=== PATIENT | male | born 1975 | race African-American/Black ===

== ENCOUNTER 2017-02-24 06:14 | Inpatient (IN) ==
[2017-02-24] MEDS ORDERED: ONDANSETRON 4 MG/2 ML VIAL IV PRN ×2 (06:50→09:49)
[2017-02-24] MEDS ORDERED: ENOXAPARIN 100 MG/ML SYRINGE SUBCUT STA (06:50)
[2017-02-24] MEDS ORDERED: NITROGLYCERIN 2% OINT 1 INCH/GM PACK TOP STA (06:50)
[2017-02-24] MEDS ORDERED: ASPIRIN 325 MG TABLET PO STA (06:50)
[2017-02-24] MEDS ORDERED: METOPROLOL TARTRATE 5 MG/5 ML VIAL IV STA (06:50)
[2017-02-24] MEDS ORDERED: MORPHINE 2 MG/1 ML SYRINGE IV PRN (06:50)
[2017-02-24 07:02] LABS: Basophils % 0.2 % (0.0-0.8); Eosinophils % 0.5 % (0.00-10.9); Hematocrit 42.3 VOL% (42.0-52.0); Hemoglobin 14.5 GM/DL (14.0-18.0); Immature Granulocytes % 0.3 %; Immature Granulocytes Absolute 0.02 #; Lymphocytes % 15.6 % (21.2-54.2); Mean Corpuscular HGB Conc 34.3 GM/DL (32-36); Mean Corpuscular Hemoglobin 29 PG (27-34); Mean Corpuscular Volume 84.4 FL (87-102); Mean Platelet Volume 9.1 FL (9.6-12.0); Monocytes # 0.3 10*3/uL (0.11-0.8); Neutrophils # 5.2 10*3/uL (1.4-7.4); Neutrophils % 78.4 % (38.7-73.9); Platelet Count 248 T/CUMM (130-400); Red Blood Count 5.01 MC/CUMM (3.8-5.5); Red Cell Distribution Width 12.6 % (9.3-17.3); White Blood Count 6.6 T/CUMM (4-12)
[2017-02-24 07:04] LABS: Partial Thromboplastin Time 26.1 SECS (0-40)
[2017-02-24] MEDS ORDERED: NITROGLYCERIN 2% OINT 1 INCH/GM PACK TOP ONE (07:04)
[2017-02-24] MEDS ORDERED: ENOXAPARIN 100 MG/ML SYRINGE SUBCUT ONE (07:04)
--- NOTE | 2017-02-24 07:04 | Emergency Department Note ---
Edgar Muniz Gwan, am scribing for, and in the presence of, Rajiv Bauer MD 06:52 . Lizette Muniz James D, MD, personally performed the services described in this documentation, ascribed by Eloisa Hernández in my presence, and it is both accurate and complete . Arrival - Arrival Chief Complaint: Chest Pain Stated Complaint: chest pain, back pain and vomiting ED Nursing Triage Note: pt to triage c.o chest pain sice 0230 this am . pt c.o dull / pressure like chest pain that radiates to his shoulder blades. pt also states he has had n/v Mode of Arrival: Ambulatory Limitations: No Limitations Source: Patient, Old Records Reviewed, RN Notes Reviewed - History of Present Illness HPI Narrative: Pt is a 41 y/o male, with a hx of HTN, who presents to the ED with a c/o chest pain with an onset 0230 this morning. Patient describes his pain as dull and that it radiates to his left shoulder blade and that he has also had associated sxs have been SOB and N/V. Patient denies coughing or any SHx of smoking cigarettes. He continued to note that his PCP had him on BP medication for 6 months but at the last visit in office his PCP took him off BP medication. At time of triage, pt's BP was 159/110. Patient confirmed that his pain woke him from sleep but denies that his SOB is worsened with exacerbation. No other problems/complaints reported in ED. Onset (ago): hour(s) Consistency: constant Severity: moderate Allergies/Adverse Reactions: Allergies Allergy/AdvReac Type Severity Reaction Status Date / Time No Known Allergies Allergy Unverified 02/24/17 06:24 Home Medications: Home Medications Medication Instructions Recorded Confirmed Type No Known Home Medications [No 02/24/17 02/24/17 History Known Home Medications] Review of System - Review of System 12 point system: reviewed and no additional remarkable complaints except as stated - Review of System Constitutional: Absent: chills, fever Head/Ears/Nose/Throat: Present: earache. Absent: epistaxis Respiratory: Absent: cough Cardiovascular: Present: as per HPI, chest pain Gastrointestinal: Present: as per HPI, nausea, vomiting Musculoskeletal: Present: as per HPI, back pain. Absent: arm pain, leg pain, neck pain Medical,Surgical,& Family Hx - Medical History Cardio: History of: Hypertension - Social History Smoking Status: Never smoker Frequency of Alcohol Use: Occasionally Type of Drug Use: None Exam Physical Examination: GENERAL: This is a well-nourished, well-developed black male in no apparent distress. VITAL SIGNS: HEENT: Head is normocephalic and atraumatic. Pupils are equally round and reactive to light. Extraocular movement are intact. Oropharynx is benign with moist mucous membranes. NECK: Neck is soft and supple without tenderness. There are no masses. There is no lymphadenopathy. LUNGS: Lungs are clear to auscultation bilaterally. Chest rises symmetrically. There is no chest wall tenderness. CV: Heart is regular rate and rhythm without murmurs, rubs, or gallops. ABDOMEN: Abdomen is soft, non-tender to palpation. There are no abnormal masses palpated. There is no organomegaly. Bowel sounds are present and active. SKIN: Skin is warm and dry. No rash. EXTREMITIES: Patient has full range of motion without tenderness. There is no pedal edema. NEUROLOGIC: Awake, alert, and oriented x4. Cranial nerves II through XII are grossly intact. There are no motorsensory deficits. PSYCHIATRIC: Normal affect. Normal mood. Vital Signs: Vital Signs Temperature 97.1 F L 02/24/17 06:34 Pulse Rate 89 02/24/17 06:34 Respiratory Rate 17 02/24/17 06:34 Blood Pressure 150/112 02/24/17 06:34 O2 Sat by Pulse Oximetry 96 02/24/17 06:20 Course - Consultations Consultation #1: Discussed with hospitalist. Patient will be admitted to their service. Time: 09:03 Results - Labs CBC & BMP: 02/24/17 06:41 02/24/17 06:41 Lab Results: I have reviewed the patients labs Labs: Laboratory Tests 02/24/17 06:41 Troponin I 0.098 H - EKG EKG results: interpreted by ERMD - Impressions EKG: Normal sinus rhythm with a rate of 90, normal ST-T waves, normal axis. - Diagnostic Findings Procedure: Chest x-ray: image reviewed by me (No cardiomegaly, no pleural effusions, no infiltrates.) Disposition Clinical Impression: Chest pain, Essential (primary) hypertension Case discussed with: patient Disposition: Still a Patient Condition: Stable Time of Disposition: 09:03
[2017-02-24] MEDS ORDERED: METOPROLOL TARTRATE 5 MG/5 ML VIAL IV ONE (07:05)
[2017-02-24] MEDS ORDERED: ASPIRIN 325 MG TABLET ONE (07:05)
[2017-02-24] MEDS ORDERED: ONDANSETRON 4 MG/2 ML VIAL ONE (07:11)
[2017-02-24] MEDS ORDERED: MORPHINE 2 MG/1 ML SYRINGE ONE ×2 (07:12→09:37)
[2017-02-24] MEDS ORDERED: NITROGLYCERIN SL 0.4 MG TABLET SL ONE ×2 (07:12→08:16)
--- NOTE | 2017-02-24 07:14 | XRay Report ---
XR chest 2V Indication: Chest pain Comparison: None available Findings: The heart and mediastinum are normal in size and configuration. The pulmonary vascularity is normal in caliber. No lung infiltrates, effusions, pneumothorax or other abnormality is demonstrated. Impression: Normal chest x-ray PROCEDURE INTERPRETED AT [facility] DEPARTMENT OF RADIOLOGY Final Report Signed by: Dr. Ashok Townsend
[2017-02-24] MEDS: NITROGLYCERIN SL 0.4 MG TABLET SL PRN ×2 (07:17→08:17)
[2017-02-24 07:30] LABS: Albumin 4.2 G/DL (3.4-5.0); Bilirubin,Total 0.6 MG/DL (0.2-1.0); Calcium 8.9 MG/DL (8.5-10.1); Osmolality,Calculated 279.4 MOS/KG (273-304); Potassium 3.9 MMOL/L (3.5-5.1); Total Protein 7.8 G/DL (6.4-8.3)
[2017-02-24] MEDS ORDERED: MORPHINE 2 MG/1 ML SYRINGE IV STA (09:27)
[2017-02-24] MEDS ORDERED: MAGNESIUM SULF RIDER 2 GM in PREMIX 1 EACH IV PRN ×2 (09:49→14:25)
[2017-02-24] MEDS ORDERED: ACETAMINOPHEN 325 MG TABLET PO PRN (09:49)
[2017-02-24] MEDS ORDERED: POTASSIUM CHLORIDE 20 MEQ TABLET PO PRN ×2 (09:49)
--- NOTE | 2017-02-24 09:54 | EKG Report ---
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
[2017-02-24] MEDS ORDERED: CARVEDILOL 3.125 MG TABLET PO SCH (10:00)
[2017-02-24] MEDS ORDERED: SODIUM CHLORIDE 0.45% 1,000 ML IV SCH (10:00)
[2017-02-24] MEDS ORDERED: LOSARTAN 25 MG TABLET PO SCH (10:00)
--- NOTE | 2017-02-24 10:01 | Hospitalist History & Physical ---
Assessment and Plan (1) Chest pain Status: Acute Assessment and plan: We will admit. Will obtain serial cardiac enzymes, echo, carotid doppler, and renal ultrasound. Will obtain lipid panel and HGA1C. We will start Norvasc, HCTZ , and K+. If enzymes +, will consult cardiology. Current Visit: Yes Qualifiers: Chest pain type: unspecified Qualified Code(s): R07.9 - Chest pain, unspecified (2) Essential (primary) hypertension Status: Acute Assessment and plan: The patient has a known diagnosis of hypertension; however is unsure of of the previous regimen. We will start low dose thiazide and CCB. Will adjust as needed. Will obtain renal ultrasound to r/o target organ damage. Current Visit: Yes History of Present Illness Chief complaint: "chest pain, shortness of breath, nausea and vomiting" History of present illness: This is a very pleasant 41 year old male that presented to the ED on this morning with a chief compliant of chest pain, shortness of breath, nausea, and vomiting. He has a past medical history of hypertension; however is not on a current medication regimen. He reports that he was on an agent at one time, however the agent was stopped by his PCP. He reported an onset of symptoms on this morning. He describes the pain as dull pain with radiation to the left shoulder. In addition, he reported shortness of breath with nausea and vomiting. At the time of presentation, the patient was noted to be grossly hypertensive with blood pressure of 159/110. He given Lopressor and Nitroglycerin and his blood pressure improved. Labs were obtained; which revealed a mild elevation in his troponin level of 0.098. After a brief discussion with both Dr. Bauer and Dr. Felipe; the patient will be admitted under the hospitalist services for continuation of care. Home Medications Medication Instructions Recorded Confirmed Type No Known Home Medications [No 02/24/17 02/24/17 History Known Home Medications] Allergies Allergy/AdvReac Type Severity Reaction Status Date / Time No Known Allergies Allergy Unverified 02/24/17 06:24 Medical,Surgical,& Family Hx - Medical History Cardio: History of: Hypertension - Social History Smoking Status: Never smoker Frequency of Alcohol Use: Occasionally Type of Drug Use: None 12 point system: reviewed and no additional remarkable complaints except as stated Exam - Constitutional Vitals: Period Temp Pulse Resp BP Sys/Aggarwal Pulse Ox Last 24 Hr 97.1 F-97.1 F 76-92 17-20 108-159/67-112 96-99 General appearance: normal weight, no acute distress - Head Head exam: Present: normal inspection, normocephalic, atraumatic - Eye Eye exam: Present: EOMI. Absent: conjunctival injection, nystagmus Pupils: Present: REGINA, normal accommodation - ENT ENT exam: Present: normal exam, normal external ear exam, normal oropharynx - Neck Neck exam: Present: normal inspection. Absent: lymphadenopathy, meningismus, tenderness, thyromegaly - Respiratory Respiratory exam: Present: clear to auscultation bilaterally. Absent: rales, rhonchi, stridor, wheezes - Cardiovascular Cardiovascular exam: Present: regular rate and rhythm. Absent: carotid bruit, diastolic murmur, gallop, JVD, rubs, systolic murmur - GI/Abdominal GI/Abdominal exam: Present: normal bowel sounds, soft - Extremities Exam Extremities exam: Present: normal inspection, normal capillary refill, full ROM. Absent: edema - Back Exam Back exam: Present: normal inspection - Neurological Exam Neurological exam: Present: alert, oriented X3, CN II-XII intact - Psychiatric Psychiatric exam: Present: normal affect, normal mood - Skin Skin exam: Present: normal color, warm, dry Results - Labs CBC & BMP: 02/24/17 06:41 02/24/17 06:41 Lab Results: I have reviewed the past 24 hour labs
[2017-02-24 10:36] LABS: Magnesium 1.9 MG/DL (1.8-2.4); Risk Ratio 4.19; VLDL CHOLESTEROL 15.4 MG/DL
--- NOTE | 2017-02-24 10:45 | Ultrasound Report ---
Renal ultrasound Indication: TOD Comparison: None available Findings: Kidneys are normal in size. There is a simple hepatic cyst in the lower pole the left kidney and measures 1.4 x 1.4 x 1.3 cm.. No hydronephrosis or nephrolithiasis is seen. The right renal length is 10.3 cm. The left renal length is 11.7 cm. No free fluid or other abnormality is seen. Impression: Simple appearing left renal cyst. No other evidence of abnormality demonstrated. Ultrasound images stored and captured. PROCEDURE INTERPRETED AT [facility] DEPARTMENT OF RADIOLOGY Final Report Signed by: Dr. Ashok Townsend
[2017-02-24] MEDS: PANTOPRAZOLE 40 MG TABLET PO SCH (13:40)
--- NOTE | 2017-02-24 14:01 | Ultrasound Report ---
Carotid artery ultrasound Indication: Hypertension, chest pain Comparison: None available Color Doppler flow and spectral analysis was performed. Findings: Small amount of atherosclerotic plaque is present in both proximal internal carotid arteries. The peak systolic velocity in the right is 49 cm/s . Ratio of flow is 0.6. The peak systolic velocity in the left is 45 cm/s . Ratio of flow is 0.6 Bilateral antegrade vertebral flow is seen. Impression: No evidence of hemodynamically significant stenosis is seen, 0-49% estimated stenosis. Consensus conference on the carotid ultrasound criteria used. Ultrasound images were captured and stored. PROCEDURE INTERPRETED AT [facility] DEPARTMENT OF RADIOLOGY Final Report Signed by: Dr. Ashok Townsend
[2017-02-24] MEDS: MORPHINE 2 MG/1 ML SYRINGE IV PRN ×2 (14:16→21:35)
--- NOTE | 2017-02-24 14:20 | Cardiology Consult Note ---
Assessment and Plan - Time spent with patient Time spent with patient: Greater than 30 minutes (1) NSTEMI (non-ST elevated myocardial infarction) Status: Acute Current Visit: Yes (2) Hypertension Status: Acute Current Visit: Yes History of Present Illness - Data of Consult Patient: new to practice Consult date: 02/24/17 Requesting Physician: Sameera Felipe - Consult Narrative Reason for consult: Chest pain, elevated troponin History of present illness: Mr. Winter is a 41 year old male not previously followed by cardiology. Risk factors include: suspected uncontrolled hypertension, family history premature coronary artery disease. Patient presented to the emergency department at [facility] this morning after experiencing chest pain in the center of his chest which radiated to the left shoulder and arm. The discomfort began this morning and woke him. He describes the discomfort as "a 500 pound elephant sitting in the center of my chest." With this discomfort, he experienced nausea, vomiting, diaphoresis and shortness of breath. He can identify no aggravating factors nor any alleviating factors. He rates the discomfort as a 7 on a scale of 1-10. He continues to have chest discomfort despite having IV beta-alison, IV morphine, Lovenox 100 mg subcu, 325 mg aspirin and nitro paste. Initial troponin was mildly elevated at 0.1. However , repeat troponin is greater than 6. His EKG does not reflect STEMI. Dr. Aguirre is present. He has seen and evaluated this patient. Patient did have lunch. He has been n.p.o. for approximately 1 hour. We discussed the risks and benefits of cardiac catheterization with Mr. Winter and his . They verbalized understanding of this information and he is being ready for cardiac catheterization at this time. ASSESSMENT/PLAN: 1. NSTEMI -see plan listed above 2. HYPERTENSION -will adjust medications accordingly during hospital stay CC: Sameera Felipe MD - Home Medications and Allergies Home Medications: Home Medications Medication Instructions Recorded Confirmed Type No Known Home Medications [No 02/24/17 02/24/17 History Known Home Medications] Allergies/Adverse Reactions: Allergies Allergy/AdvReac Type Severity Reaction Status Date / Time No Known Allergies Allergy Unverified 02/24/17 06:24 Review of systems: REVIEW OF SYSTEMS: - Constitutional Constitutional: Absent: syncope, anorexia, night sweats - EENT Eyes: Absent: blurry vision, loss of vision, diplopia Ears: Absent: decreased hearing, ear pain, ear discharge - Cardiovascular Cardiovascular: Present: chest pain at rest. No edema no palpitations - Respiratory Respiratory: Denies: HAY[place], cough. Absent: wheezing, hemoptysis, change in phlegm color - Gastrointestinal Gastrointestinal: Denies constipation. Absent: abdominal pain, hematemesis, hematochezia, melena, change in bowel habits, nausea - Genitourinary Genitourinary: Absent: difficulty urinating, dysuria, urinary hesitancy, flank pain - Musculoskeletal Musculoskeletal: Present: back pain Absent: joint swelling, muscle cramps, muscle weakness - Neurological Neurological: Present: normal gait without frequent falls. Absent: dizziness, hemiparesis - Psychiatric Psychiatric: Absent: anxiety, depression, difficulty concentrating - Endocrine Endocrine: Absent: cold intolerance, heat intolerance, polyuria, polyphagia, polydipsia - Hematologic/Lymphatic Hematologic/Lymphatic: Present: easy bruising. Absent: easy bleeding, easy bruisability -Integumentary Integumentary: Absent: lesions, rashes, skin breakdown Medical,Surgical,& Family Hx - Medical History Cardio: History of: Hypertension No history of: CAD, [place] - Family History Family History: Reports;: Family Heart Disease, Family Hypertension - Social History Smoking Status: Never smoker Have you smoked in the last 12 months: No Frequency of Alcohol Use: Rarely Type of Drug Use: None Marital Status: Lives With:: Spouse Functional capacity: independent ambulation Physical Examination Vital Signs Temp Pulse Resp BP Pulse Ox 97.1 F L 92 H 20 159/110 96 02/24/17 06:20 02/24/17 06:20 02/24/17 06:20 02/24/17 06:20 02/24/17 06:20 General: [Appears well with no apparent distress.] [Pleasant and cooperative. ] [Appears comfortable.] HEENT: [PERRL, normocephalic, atraumatic. Mucous membranes moist. No jaundice noted. Conjunctiva moist and clear, sclerae anicteric] Neck: No JVD/HJR, no thyromegaly or lymphadenopathy noted. No carotid bruit appreciated Cardiac: [Regular rate and rhythm.] [No murmur rub or gallop.] Lungs: [Clear to auscultation without accessory muscle use to assist the respiratory pattern.] Oxygen is in use at this time Abdomen: Soft, bowel sounds normoactive. Nontender and nondistended. No abdominal bruit or thrill noted. No masses noted. Musculoskeletal: No fluid collection. Decreased range of motion is noted. Extremities: No clubbing, cyanosis noted. [ No edema noted.] Upper extremity pulses 2+. Lower extremity pulses 2+. Capillary refill less than 3 seconds. Skin: No unusual lesions or rashes. No skin breakdown appreciated. Neuro: Awake, alert and oriented 3. Moves all extremities well without hemiparesis or paralysis. No essential tremor is appreciated. Result/EKG - Labs CBC & BMP: 02/24/17 06:41 02/24/17 06:41 Lab Results: I have reviewed the past 24 hour labs Labs: Laboratory Results - last 24 hr 02/24/17 02/24/17 09:49 13:03 Magnesium 1.9 Troponin I 6.550 H D Triglycerides 77 Cholesterol 226 H LDL Cholesterol 164.0 VLDL Cholesterol 15.4 HDL Cholesterol 54 Heart Disease Risk Ratio 4.19 - Diagnostic Findings Procedure: Chest x-ray: report reviewed by me - EKG EKG results: interpreted by me EKG shows: sinus rhythm
[2017-02-24] MEDS ORDERED: diphenhydrAMINE CAP 25 MG CAPSULE PO ONE ×2 (14:25)
[2017-02-24] MEDS ORDERED: DIAZEPAM 5 MG TABLET PO ONE ×2 (14:25)
[2017-02-24] MEDS ORDERED: POTASSIUM CHLORIDE RIDER 10 MEQ in PREMIX 1 EACH IV PRN (14:25)
[2017-02-24] MEDS ORDERED: diphenhydrAMINE CAP 25 MG CAPSULE ONE (14:27)
[2017-02-24] MEDS ORDERED: DIAZEPAM 5 MG TABLET ONE (14:27)
[2017-02-24 14:39] LABS: Barbiturates Screen,Urine Negative (Negative); Benzodiazepines Screen,Urine Negative (Negative); Cannabinoid Screen,Urine Negative (Negative); Opiate Screen,Urine Positive (Negative); Phencyclidine Screen,Urine Negative (Negative)
[2017-02-24 15:04] LABS: CKMB % 7.5 %
[2017-02-24 15:10] LABS: Troponin I Only 8.16 NG/ML (0.00-0.045)
[2017-02-24] MEDS ORDERED: TIROFIBAN 5,000 MCG/100 ML PREMIX IV ONE (15:13)
[2017-02-24] MEDS ORDERED: MIDAZOLAM 2 MG/2 ML VIAL ONE (15:18)
[2017-02-24] MEDS ORDERED: HYDROmorphone 2 MG/1 ML VIAL ONE ×2 (15:18→17:17)
[2017-02-24] MEDS ORDERED: LIDOCAINE 1% 20 ML VIAL ONE (15:19)
--- NOTE | 2017-02-24 15:21 | EKG Report ---
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
[2017-02-24] MEDS ORDERED: HEPARIN 5,000 UNIT/1 ML VIAL ONE (15:36)
[2017-02-24] MEDS ORDERED: NITROPRUSSIDE 50 MG/2 ML VIAL ONE (15:52)
[2017-02-24] MEDS ORDERED: ENOXAPARIN 30 MG/0.3 ML SYRINGE ONE (15:56)
--- NOTE | 2017-02-24 15:57 | Hospitalist Progress Note ---
Assessment and Plan - Time spent with patient Time spent with patient: Greater than 30 minutes (1) NSTEMI (non-ST elevated myocardial infarction) Status: Acute Assessment and plan: Given continued chest pain and troponin now in the range of 6, cardiology will perform a left heart cath. Current Visit: Yes (2) Essential (primary) hypertension Status: Acute Assessment and plan: Well-controlled. Current Visit: Yes Hospitalist: Subjective Interval history: Patient reports continued chest pain left side. He appears very comfortable sitting in bed. Exam - Constitutional Vitals: Period Temp Pulse Resp BP Sys/Aggarwal Pulse Ox Last 24 Hr 96.9 F-98.8 F 91-97 18-18 124-125/72-76 96-97 General appearance: no acute distress - Head Head exam: Present: normocephalic, atraumatic - Eye Eye exam: Present: EOMI Pupils: Present: REGINA - ENT ENT exam: Present: normal exam - Neck Neck exam: Present: normal inspection - Respiratory Respiratory exam: Present: clear to auscultation bilaterally. Absent: rhonchi, wheezes - Cardiovascular Cardiovascular exam: Present: regular rate and rhythm. Absent: gallop, rubs, systolic murmur - GI/Abdominal GI/Abdominal exam: Present: normal bowel sounds, soft. Absent: distended, firm , guarding, tenderness, rebound - Extremities Exam Extremities exam: Present: normal inspection. Absent: calf tenderness, edema Results - Labs CBC & BMP: 02/24/17 06:41 02/24/17 06:41 Lab Results: I have reviewed the past 24 hour labs
[2017-02-24] MEDS ORDERED: VERAPAMIL 5 MG/2 ML VIAL ONE (16:00)
[2017-02-24] MEDS ORDERED: ALTEPLASE 2 MG VIAL ONE ×2 (16:14→16:38)
[2017-02-24] MEDS ORDERED: FUROSEMIDE 40 MG/4 ML VIAL ONE (16:48)
[2017-02-24] MEDS ORDERED: TIROFIBAN 5,000 MCG/100 ML PREMIX IV SCH (17:30)
[2017-02-24] MEDS ORDERED: NITROGLYCERIN DRIP 50 MG/250 ML BOTTLE IV ONE (17:43)
--- NOTE | 2017-02-24 17:50 | Cardiac Catheterization ---
Date of Procedure:: 02/24/17 Post-op diagnosis: same Procedure: Procedures performed: 1. Left heart catheterization 2. Coronary angiography 3. Left ventriculography 4. Thrombectomy LAD with AngioJet device 5. Stenting mid LAD with [id number]-tuzf-nftwexf stent (5.0 x 18 ultra) 6. Intracoronary thrombolytic/TPA directed to the mid LAD 7. Right femoral arteriotomy closures with Angio-Seal device Brief clinical summary: Mr. Dykes a 41-year-old who presented with persistent chest pain who ruled in for WA with second set of cardiac markers. Description of procedure: After obtaining informed consent, the right groin was prepped and draped in the usual sterile fashion. Next a short 6 Romansh sheath was placed in the right femoral artery using a modified Seldinger technique, after the patient received IV sedation and local anesthetic. Next a JL4 catheter was advanced over a guidewire under fluoroscopic guidance, and was engaged to the left coronary artery after which angiography was performed in multiple views. This was then removed over a wire, and a JR4 catheter was advanced in similar fashion was engaged the right coronary artery after which angiography was performed in multiple views. Next a bent pigtail catheter was advanced into the left ventricle, where hemodynamic measurements were obtained, left ventriculography was performed. Percutaneous coronary intervention wasn't performed as described below. At the intervention, and angiogram of the sheath showed the sheath was inserted in the right common femoral artery in a vessel suitable for closure. Hemostasis was obtained with Angio-Seal device with no residual bleeding. He was transferred from the labor relations teacher in good condition without complication. Percutaneous coronary intervention: The patient arrived to the labor relations teacher having received aspirin, and 0.9 mg/kg of Lovenox subcutaneously. I gave him 30 mg of IV Lovenox early in the procedure. I advanced an EBU 3.5 guiding catheter and they engaged into the left coronary artery which provided fairly good support. A Prowater wire was advanced and left advanced into the distal LAD with only moderate difficulty. Next an AngioJet coronary catheter was advanced to the proximal portion of thrombus and multiple slow passes were made in the mid to distal LAD. Follow-up angiogram showed no reflow starting in the mid LAD. I am intracoronary verapamil and nitroprusside 200 g on 2 different occasions with no improvement. I performed prolonged inflations with 50 by 18 balloon with no improvement. I eventually stented the area with a 5.0 x 18 stent was dilated to 5.5 mm. The stent was still undersized due to the severe ectatic nature of his vessels. I attempted postdilated with a 7 x 40 peripheral balloon but would not advance of the coronary due to insufficient guide support. I had to change out to an 8 Romansh sheath and 8 Romansh EBU 3.5 guiding catheter to try to calm persist. I then advanced a 2.5 [id number]-[id number] coronary balloon to the proximal portion of the stent where the occlusion began injected 2 mg of TPA. He had chest pain beginning in the case. Report it was a 5/10 to beginning, a 6/10 after occlusion, and a 2/10 at the end the procedure. His oxygen saturations dropped modestly with 100% FiO2 which prompted me to may give IV Lasix. His saturations and breathing improved, but he did have gross hematuria. For this reason I discontinued his Aggrastat. He' ll be watched closely in the CCU. Coronary angiography: The left main coronary artery is normal developed free of disease. Left anterior descending artery is severely ectatic being at least 6 mm in the midportion. There are 2 diagonals first has a high takeoff and is relatively thin but fairly long period the second one is fairly distal and is approximately average in caliber. There is a large amount of thrombus in the mid to distal LAD extending into the second diagonal. Flow is somewhat delayed possibly due to ectatic nature of his vessels. The circumflex gives off a large than average OM1 and a very large bifurcating OM 2. There is diffuse mild disease of 30% with diffuse moderate irregularities. The right coronary artery is dominant and extremely ectatic giving off a large than average PDA and 2 large than average posterior lateral branches. Left ventricular: Left ventricle appears to be normal in size with borderline to mildly reduced LV systolic function with ejection fraction estimated be 45-50 %. There is moderate anterior hypokinesis. Impression: 1. Borderline to mildly reduced overall LV systolic function with ejection fraction is be 45-50% with moderate anterior hypokinesis 2. Right dominant system 3. 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 Very large thrombus burden in the mid to distal LAD extending into the proximal portion of the second diagonal 5. Status post thrombectomy/AngioJet of mid to distal LAD with no reflow despite prolonged balloon inflations and stenting of the mid LAD (5.0 x 18 ultra stent dilated to 5.6 mm) Recommendations and discussion: Given Mr. Winter's a large thrombus burden ongoing chest pain I felt it was important to try to perform thrombectomy. Unfortunately he has no reflow it is distal LAD. He is received intracoronary TPA as well as Aggrastat. I'll discontinue the Aggrastat due to some hematuria after the procedure was over. I have placed him on high-intensity statin therapy and low-dose beta alison, and he will be watched closely in the CCU. He may require additional IV Lasix, currently human I will be stable. I'll place him on nitroglycerin infusion as his blood pressure is modestly elevated in the 150 systolic range. Anesthesia: minimal conscious sedation Surgeon / Physician: Hussain Aguirre Production Staff Worker: other Estimated blood loss: minimal Specimens: none sent Condition: stable Disposition: ICU/CCU - Medications / Follow-up
[2017-02-24] MEDS ORDERED: NITROGLYCERIN DRIP 50 MG/250 ML BOTTLE IV SCH (18:00)
[2017-02-24] MEDS: ROSUVASTATIN 20 MG TABLET PO SCH (18:27)
[2017-02-24 19:54] LABS: CKMB % 6.8 %
[2017-02-24 19:57] LABS: Troponin I Only 12.4 NG/ML (0.00-0.045)
[2017-02-24] MEDS ORDERED: SIMVASTATIN 40 MG TABLET PO SCH (21:00)
[2017-02-24] MEDS: METOPROLOL TARTRATE 50 MG TABLET PO SCH (21:13)
[2017-02-24] MEDS ORDERED: TICAGRELOR 90 MG TABLET PO ONE (21:25)
[2017-02-24] MEDS: HYDROmorphone 2 MG/1 ML VIAL IV PRN (22:25)
[2017-02-24] MEDS ORDERED: FUROSEMIDE 40 MG/4 ML VIAL IV ONE (22:54)
[2017-02-25] MEDS: MORPHINE 2 MG/1 ML SYRINGE IV PRN ×3 (03:56→16:30)
[2017-02-25 04:46] LABS: Basophils % 0.1 % (0.0-0.8); Hematocrit 42.6 VOL% (42.0-52.0); Immature Granulocytes % 0.4 %; Immature Granulocytes Absolute 0.05 #; Lymphocytes # 0.8 10*3/uL (1.4-4.0); Lymphocytes % 5.9 % (21.2-54.2); Mean Corpuscular HGB Conc 35.2 GM/DL (32-36); Mean Corpuscular Hemoglobin 30 PG (27-34); Mean Corpuscular Volume 83.9 FL (87-102); Mean Platelet Volume 9.1 FL (9.6-12.0); Monocytes # 0.6 10*3/uL (0.11-0.8); Monocytes % 4.8 % (1.7-12.7); Neutrophils # 11.4 10*3/uL (1.4-7.4); Neutrophils % 88.8 % (38.7-73.9); Platelet Count 307 T/CUMM (130-400); Red Blood Count 5.08 MC/CUMM (3.8-5.5); White Blood Count 12.8 T/CUMM (4-12)
[2017-02-25 05:20] LABS: Albumin 4.2 G/DL (3.4-5.0); Bilirubin,Total 1.1 MG/DL (0.2-1.0); Osmolality,Calculated 272.1 MOS/KG (273-304); Potassium 4.6 MMOL/L (3.5-5.1); Total Protein 7.9 G/DL (6.4-8.3)
[2017-02-25 05:33] LABS: CKMB % 7.4 %; Calcium 8.9 MG/DL (8.5-10.1); Osmolality,Calculated 272.1 MOS/KG (273-304); Potassium 4.7 MMOL/L (3.5-5.1)
[2017-02-25 05:39] LABS: Troponin I Only 33.5 NG/ML (0.00-0.045)
--- NOTE | 2017-02-25 06:59 | EKG Report ---
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
[2017-02-25] MEDS: HYDROmorphone 2 MG/1 ML VIAL IV PRN ×2 (07:33→21:23)
--- NOTE | 2017-02-25 07:44 | EKG Report ---
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
[2017-02-25] MEDS ORDERED: ENOXAPARIN 40 MG/0.4 ML SYRINGE SUBCUT SCH (08:00)
[2017-02-25] MEDS: METOPROLOL TARTRATE 50 MG TABLET PO SCH (08:13)
[2017-02-25] MEDS: PANTOPRAZOLE 40 MG TABLET PO SCH (08:14)
[2017-02-25] MEDS: ROSUVASTATIN 20 MG TABLET PO SCH (08:14)
--- NOTE | 2017-02-25 08:29 | Cardiology Progress Note ---
Assessment and Plan (1) NSTEMI (non-ST elevated myocardial infarction) Status: Acute Assessment and plan: 1. 41-year-old BM with hypertension status post non-STEMI with severely abnormal coronary arteries: (Very large and ectatic) with large volume thrombus in mid to distal LAD, occluded at the end of intervention, despite thrombectomy and stenting (5.0 x 18 mm dilated to 5.6 mm), as well as intracoronary TPA injection. Tachycardia is likely related to diminished cardiac output from his myocardial infarction. 2. Given his hypertension in the setting, would continue nitroglycerin (we'll try to change to BiDil equivalent), and change metoprolol to carvedilol 3.125 mg twice a day 3. I'm uncertain of his exact urine output, creatinine is modestly elevated; I' ll wait for follow-up values before starting spironolactone. 4. Aggrastat was discontinued yesterday evening due to hematuria; he reports that he no longer has gross hematuria 5. EF was 45-50% catheterization, but this may continue to decline further, as his infarct completes. 6. We'll continue to watch closely in the CCU. Current Visit: Yes (2) Hypertension Status: Acute Current Visit: Yes Cardiology - PN: Subj Interval history: Mr. Winter has some mild chest "soreness" this morning and throughout the night. He reports that is much better. He has no shortness of breath lying in bed, but has had sinus tachycardia all morning in the 110-120 range. He reports his last urine was yellow and no longer dark. He has had no malignant dysrhythmias. He has no complaints and his groin access site. Exam (Progress Note) - Constitutional Vitals: Period Temp Pulse Resp BP Sys/Aggarwal Pulse Ox Last 24 Hr 96.9 F-98.8 F 91-137 11-29 107-161/72-126 90-98 General appearance: normal weight, no acute distress - Head Head exam: Present: normal inspection, normocephalic, atraumatic - Respiratory Respiratory exam: Present: rales (only a few basilar crackles). Absent: stridor , wheezes - Cardiovascular Cardiovascular exam: Present: tachycardia. Absent: diastolic murmur, rubs - GI/Abdominal GI/Abdominal exam: Present: soft. Absent: tenderness - Extremities Exam Extremities exam: Present: other (no bruit hematoma or tenderness at right groin access site). Absent: edema - Neurological Exam Neurological exam: Present: alert, oriented X3 Result/EKG - Labs CBC & BMP: 02/25/17 04:20 02/25/17 04:20 Labs: Laboratory Results - last 24 hr 02/24/17 02/24/17 02/24/17 09:49 13:00 13:03 WBC RBC Hgb Hct MCV MCH MCHC RDW Plt Count MPV Neut % (Auto) Lymph % (Auto) Ida % (Auto) Eos % (Auto) Baso % (Auto) Neut # (Auto) Lymph # (Auto) Ida # (Auto) Eos # (Auto) Baso # (Auto) Immature Gran % Nucleated RBC % Immature Gran # Nucleated RBCs # Sodium Potassium Chloride Carbon Dioxide Anion Gap BUN Creatinine GFR Calculation BUN/Creatinine Ratio Glucose Calculated Osmolality Calcium Magnesium 1.9 Total Bilirubin AST ALT Alkaline Phosphatase Total Creatine Kinase 443 H CK-MB (CK-2) 33.1 H CK and CKMB Interp 7.5 Troponin I 8.160 H D 6.550 H Total Protein Albumin Globulin Albumin/Globulin Ratio Triglycerides 77 Cholesterol 226 H LDL Cholesterol 164.0 VLDL Cholesterol 15.4 HDL Cholesterol 54 Heart Disease Risk Ratio 4.19 Urine Opiates Screen Ur Barbiturates Screen Ur Phencyclidine Scrn U Amphetamine/Methamph U Benzodiazepines Scrn U Cocaine Metab Screen U Cannabinoids Screen 02/24/17 02/24/17 02/25/17 14:06 19:26 04:20 WBC 12.8 H D RBC 5.08 Hgb 15.0 Hct 42.6 MCV 83.9 L MCH 30 MCHC 35.2 RDW 13.0 Plt Count 307 D MPV 9.1 L Neut % (Auto) 88.8 H Lymph % (Auto) 5.9 L Ida % (Auto) 4.8 Eos % (Auto) 0.0 Baso % (Auto) 0.1 Neut # (Auto) 11.4 H Lymph # (Auto) 0.8 L Ida # (Auto) 0.6 Eos # (Auto) 0.0 Baso # (Auto) 0.0 Immature Gran % 0.4 Nucleated RBC % 0.0 Immature Gran # 0.05 Nucleated RBCs # 0.00 Sodium Potassium Chloride Carbon Dioxide Anion Gap BUN Creatinine GFR Calculation BUN/Creatinine Ratio Glucose Calculated Osmolality Calcium Magnesium Total Bilirubin AST ALT Alkaline Phosphatase Total Creatine Kinase 737 H D CK-MB (CK-2) 50.4 H D CK and CKMB Interp 6.8 Troponin I 12.400 H D Total Protein Albumin Globulin Albumin/Globulin Ratio Triglycerides Cholesterol LDL Cholesterol VLDL Cholesterol HDL Cholesterol Heart Disease Risk Ratio Urine Opiates Screen Positive H Ur Barbiturates Screen Negative Ur Phencyclidine Scrn Negative U Amphetamine/Methamph Negative U Benzodiazepines Scrn Negative U Cocaine Metab Screen Negative U Cannabinoids Screen Negative 02/25/17 02/25/17 04:20 04:20 WBC RBC Hgb Hct MCV MCH MCHC RDW Plt Count MPV Neut % (Auto) Lymph % (Auto) Ida % (Auto) Eos % (Auto) Baso % (Auto) Neut # (Auto) Lymph # (Auto) Ida # (Auto) Eos # (Auto) Baso # (Auto) Immature Gran % Nucleated RBC % Immature Gran # Nucleated RBCs # Sodium 135 L 135 L Potassium 4.6 4.7 Chloride 98 99 Carbon Dioxide 24 23 Anion Gap 17.6 H 17.7 H BUN 13 13 Creatinine 1.30 1.30 GFR Calculation 107 107 BUN/Creatinine Ratio 10.00 10.00 Glucose 150 H 149 H Calculated Osmolality 272.1 L 272.1 L Calcium 9.0 8.9 Magnesium 2.0 Total Bilirubin 1.10 H AST 290 H ALT 99 H Alkaline Phosphatase 74 Total Creatine Kinase 2344 H D CK-MB (CK-2) 172.8 H D CK and CKMB Interp 7.4 Troponin I 33.500 H D Total Protein 7.9 Albumin 4.2 Globulin 3.7 H Albumin/Globulin Ratio 1.1 Triglycerides Cholesterol LDL Cholesterol VLDL Cholesterol HDL Cholesterol Heart Disease Risk Ratio Urine Opiates Screen Ur Barbiturates Screen Ur Phencyclidine Scrn U Amphetamine/Methamph U Benzodiazepines Scrn U Cocaine Metab Screen U Cannabinoids Screen Specialty Discharge - Follow Up or Referrals
[2017-02-25] MEDS ORDERED: hydroCHLOROthiazide 25 MG TABLET PO SCH (09:00)
[2017-02-25] MEDS ORDERED: POTASSIUM CHLORIDE 20 MEQ TABLET PO SCH (09:00)
[2017-02-25] MEDS ORDERED: amLODIPine 5 MG TABLET PO SCH (09:00)
[2017-02-25] MEDS ORDERED: FUROSEMIDE 20 MG/2 ML VIAL ONE (09:10)
--- NOTE | 2017-02-25 09:10 | Hospitalist Progress Note ---
Assessment and Plan - Time spent with patient Time spent with patient: Greater than 30 minutes (1) NSTEMI (non-ST elevated myocardial infarction) Status: Acute Assessment and plan: Defer to cards. Current Visit: Yes (2) Essential (primary) hypertension Status: Acute Assessment and plan: Well-controlled. Current Visit: Yes (3) Hyperlipidemia LDL goal <70 Status: Acute Assessment and plan: Continue management. 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 Exam - Constitutional Vitals: Period Temp Pulse Resp BP Sys/Aggarwal Pulse Ox Last 24 Hr 96.9 F-98.8 F 91-137 11-29 107-161/72-126 90-99 General appearance: no acute distress - Head Head exam: Present: normocephalic, atraumatic - Eye Eye exam: Present: EOMI Pupils: Present: REGINA - ENT ENT exam: Present: normal exam - Neck Neck exam: Present: normal inspection - Respiratory Respiratory exam: Present: clear to auscultation bilaterally. Absent: rhonchi, wheezes - Cardiovascular Cardiovascular exam: Present: regular rate and rhythm. Absent: gallop, rubs, systolic murmur - GI/Abdominal GI/Abdominal exam: Present: normal bowel sounds, soft. Absent: distended, firm , guarding, tenderness, rebound - Extremities Exam Extremities exam: Present: normal inspection. Absent: calf tenderness, edema Results - Labs CBC & BMP: 02/25/17 04:20 02/25/17 04:20 Lab Results: I have reviewed the past 24 hour labs Specialty Discharge - Follow Up or Referrals
[2017-02-25] MEDS: ASPIRIN EC 81 MG TABLET PO SCH (09:16)
[2017-02-25] MEDS: ISOSORBIDE DINITRATE 20 MG TABLET PO SCH ×3 (09:16→21:07)
[2017-02-25] MEDS: hydrALAZINE 25 MG TABLET PO SCH ×3 (09:16→21:06)
[2017-02-25] MEDS: FUROSEMIDE 40 MG/4 ML VIAL IV SCH ×2 (09:17→15:33)
[2017-02-25] MEDS: TICAGRELOR 90 MG TABLET PO SCH ×2 (09:18→21:07)
[2017-02-25] MEDS: CARVEDILOL 3.125 MG TABLET PO SCH ×2 (09:18→21:06)
[2017-02-25] MEDS ORDERED: FUROSEMIDE 40 MG/4 ML VIAL IV SCH (16:00)
--- NOTE | 2017-02-25 18:10 | ECHO Report ---
Dhara Winter Exam Date: 02/25/2017 08:42 Referring Physician: Technologist: Dinorah Melara RDCS Age: 41 Ht (in): 74 Wt (lb): 230 Gender: M Exam Location: [facility] ([place]) Echo Indications: Chest pain, unspecified, Non-ST elevation (NSTEMI) myocardial infarction, Essential (primary) hypertension BP: 106 / 71 HR: 114 Rhythm: Sinus Technical Quality: IMPRESSIONS Normal chamber sizes Mild reduced LV systolic function ejection fraction estimate 40% overall with apical akinesis and distal anterior hypokinesis No significant valvular abnormalities noted Mild sinus tachycardia noted MEASUREMENTS (Male / Female) Normal Values 2D ECHO LV Diastolic Diameter PLAX 5.0 cm 4.2 - 5.9 / 3.9 - 5.3 cm LV Systolic Diameter PLAX 3.6 cm LV Fractional Shortening PLAX 28.4 % IVS Diastolic Thickness 1.1 cm 0.6 - 1.0 / 0.6 - 0.9 cm LVPW Diastolic Thickness 1.2 cm 0.6 - 1.0 / 0.6 - 0.9 cm RV Internal Dim ED PLAX 3.0 cm Aortic Root Diameter 3.6 cm LA Systolic Diameter LX 3.4 cm 3.0 - 4.0 / 2.7 - 3.8 cm FINDINGS Left Ventricle Normal left ventricular cavity size. Mild left ventricular hypertrophy. Left ventricular ejection fraction is estimated at Right Ventricle The right ventricle is normal in size and function. Right Atrium The right atrium is normal in size. Left Atrium The left atrium is normal in size. Mitral Valve Morphologically normal mitral valve without significant stenosis or prolapse. There is no mitral regurgitation. Aortic Valve Morphologically normal aortic valve without significant sclerosis or stenosis. There is no aortic regurgitation. Tricuspid Valve Morphologically normal tricuspid valve without significant stenosis or regurgitation. Pulmonary artery systolic pressure is normal. Pulmonic Valve Morphologically normal pulmonic valve without significant stenosis. There is no pulmonic regurgitation. Pericardium Normal pericardium without effusion. Aorta Normal ascending aorta dimension. Hussain Aguirre (Electronically Signed) Final Date: 25 February 2017 18:08
[2017-02-25] MEDS: ZALEPLON 5 MG CAPSULE PO PRN (21:07)
[2017-02-26] MEDS: HYDROmorphone 2 MG/1 ML VIAL IV PRN ×5 (04:53→21:38)
[2017-02-26] MEDS: MORPHINE 2 MG/1 ML SYRINGE IV PRN ×2 (07:40→20:09)
[2017-02-26] MEDS: FUROSEMIDE 40 MG/4 ML VIAL IV SCH ×2 (07:40→15:59)
[2017-02-26 08:40] LABS: Basophils % 0.1 % (0.0-0.8); Hematocrit 37.9 VOL% (42.0-52.0); Hemoglobin 13.2 GM/DL (14.0-18.0); Immature Granulocytes % 0.4 %; Immature Granulocytes Absolute 0.05 #; Lymphocytes # 1.4 10*3/uL (1.4-4.0); Lymphocytes % 10.6 % (21.2-54.2); Mean Corpuscular HGB Conc 34.8 GM/DL (32-36); Mean Corpuscular Hemoglobin 30 PG (27-34); Mean Corpuscular Volume 84.6 FL (87-102); Mean Platelet Volume 9.1 FL (9.6-12.0); Monocytes # 1.3 10*3/uL (0.11-0.8); Monocytes % 9.3 % (1.7-12.7); Neutrophils # 10.8 10*3/uL (1.4-7.4); Neutrophils % 79.6 % (38.7-73.9); Platelet Count 254 T/CUMM (130-400); Red Blood Count 4.48 MC/CUMM (3.8-5.5); Red Cell Distribution Width 12.8 % (9.3-17.3); White Blood Count 13.5 T/CUMM (4-12)
--- NOTE | 2017-02-26 09:07 | Cardiology Progress Note ---
Assessment and Plan (1) NSTEMI (non-ST elevated myocardial infarction) Status: Acute Assessment and plan: 1. 41-year-old BM with hypertension status post non-STEMI with severely abnormal coronary arteries: (Very large and ectatic) with large volume thrombus in mid to distal LAD, occluded at the end of intervention, despite thrombectomy and stenting (5.0 x 18 mm dilated to 5.6 mm), as well as intracoronary TPA injection. Tachycardia is likely related to diminished cardiac output from his myocardial infarction. 2. Given his hypertension in the setting, would continue nitroglycerin (we'll try to change to BiDil equivalent), and change metoprolol to carvedilol 3.125 mg twice a day 3. I'm uncertain of his exact urine output, creatinine is modestly elevated; I' ll wait for follow-up values before starting spironolactone. 4. Aggrastat was discontinued yesterday evening due to hematuria; he reports that he no longer has gross hematuria 5. EF was 45-50% catheterization, but this may continue to decline further, as his infarct completes. 6. We'll continue to watch closely in the CCU. February 26 update: 1. Sinus tachycardia persists secondary to his [place]/reduced cardiac output 2. He is asymptomatic other than his chest pain with "hiccups"; white count is little elevated, he could develop Zora's, but it is too early for that now. 3. Echocardiogram shows apical akinesis. Overall ejection fraction still around 40%; see report. 4. Increase Coreg to 6.25 mg twice a day 5. Creatinine this morning is pending, if reasonable would consider further diuretics/spironolactone 6. Can transfer to telemetry unit from my standpoint. Current Visit: Yes (2) Hypertension Status: Acute Current Visit: Yes Cardiology - PN: Subj Interval history: Mr. Winter reports no problems in the night other than "bad hiccups" in the last few hours. He reports it hurts each time he has 1. Proceed to be some tenderness to palpation. He is not shortness of breath at rest despite persistent sinus tachycardia. He is not any complaints and his access site. He has not had any dysrhythmia otherwise. Exam (Progress Note) - Constitutional Vitals: Period Temp Pulse Resp BP Sys/Aggarwal Pulse Ox Last 24 Hr 97.0 F-97.2 F 110-134 12-28 106-146/53-104 96-100 General appearance: normal weight, no acute distress - Head Head exam: Present: normal inspection, normocephalic, atraumatic - Neck Neck exam: Present: normal inspection - Respiratory Respiratory exam: Present: rales. Absent: stridor, wheezes - Cardiovascular Cardiovascular exam: Present: tachycardia. Absent: diastolic murmur, irregular rhythm, rubs - GI/Abdominal GI/Abdominal exam: Present: soft. Absent: tenderness - Extremities Exam Extremities exam: Absent: edema Result/EKG - Labs CBC & BMP: 02/26/17 08:32 02/25/17 04:20 Labs: Laboratory Results - last 24 hr 02/26/17 08:32 WBC 13.5 H RBC 4.48 Hgb 13.2 L Hct 37.9 L MCV 84.6 L MCH 30 MCHC 34.8 RDW 12.8 Plt Count 254 MPV 9.1 L Neut % (Auto) 79.6 H Lymph % (Auto) 10.6 L [place] % (Auto) 9.3 Eos % (Auto) 0.0 Baso % (Auto) 0.1 Neut # (Auto) 10.8 H Lymph # (Auto) 1.4 [place] # (Auto) 1.3 H Eos # (Auto) 0.0 Baso # (Auto) 0.0 Immature Gran % 0.4 Nucleated RBC % 0.0 Immature Gran # 0.05 Nucleated RBCs # 0.00 Specialty Discharge - Follow Up or Referrals
[2017-02-26 09:20] LABS: Albumin 3.9 G/DL (3.4-5.0); Bilirubin,Total 1.4 MG/DL (0.2-1.0); Calcium 8.7 MG/DL (8.5-10.1); Osmolality,Calculated 267.5 MOS/KG (273-304); Total Protein 7.8 G/DL (6.4-8.3)
[2017-02-26] MEDS: ROSUVASTATIN 20 MG TABLET PO SCH (09:20)
[2017-02-26] MEDS: hydrALAZINE 25 MG TABLET PO SCH ×3 (09:20→20:09)
[2017-02-26] MEDS: TICAGRELOR 90 MG TABLET PO SCH ×2 (09:20→20:09)
[2017-02-26] MEDS: ISOSORBIDE DINITRATE 20 MG TABLET PO SCH ×3 (09:20→20:09)
[2017-02-26] MEDS: PANTOPRAZOLE 40 MG TABLET PO SCH (09:20)
[2017-02-26] MEDS: ASPIRIN EC 81 MG TABLET PO SCH (09:20)
[2017-02-26] MEDS: CARVEDILOL 6.25 MG TABLET PO SCH ×2 (09:20→20:09)
--- NOTE | 2017-02-26 09:32 | Hospitalist Progress Note ---
Assessment and Plan - Time spent with patient Time spent with patient: Greater than 30 minutes (1) NSTEMI (non-ST elevated myocardial infarction) Status: Acute Assessment and plan: Defer to cards. Current Visit: Yes (2) Tachycardia Status: Acute Assessment and plan: Secondary to [place]. Defer to cardiology. Current Visit: Yes (3) Essential (primary) hypertension Status: Acute Assessment and plan: Well-controlled. Current Visit: Yes (4) Hyperlipidemia LDL goal <70 Status: Acute Assessment and plan: Continue management. Current Visit: Yes Hospitalist: Subjective Interval history: Patient reports continued chest pain. States it is about 2/10. Heart rates been tachycardia 120s. Exam - Constitutional Vitals: Period Temp Pulse Resp BP Sys/Aggarwal Pulse Ox Last 24 Hr 97.0 F-97.2 F 110-134 12-28 106-146/53-104 96-100 General appearance: normal weight, no acute distress - Head Head exam: Present: normal inspection, normocephalic, atraumatic - Eye Eye exam: Present: EOMI Pupils: Present: REGINA - ENT ENT exam: Present: normal exam - Neck Neck exam: Present: normal inspection - Respiratory Respiratory exam: Present: clear to auscultation bilaterally. Absent: rhonchi, wheezes - Cardiovascular Cardiovascular exam: Present: tachycardia. Absent: bradycardia, gallop, irregular rhythm, rubs, systolic murmur - GI/Abdominal GI/Abdominal exam: Present: normal bowel sounds, soft. Absent: distended, firm , guarding, tenderness, rebound - Extremities Exam Extremities exam: Present: normal inspection. Absent: calf tenderness, edema Results - Labs CBC & BMP: 02/26/17 08:32 02/26/17 08:32 Lab Results: I have reviewed the past 24 hour labs Specialty Discharge - Follow Up or Referrals
[2017-02-26] MEDS: SPIRONOLACTONE 25 MG TABLET PO SCH (10:55)
[2017-02-26] MEDS: ENOXAPARIN 40 MG/0.4 ML SYRINGE SUBCUT SCH (15:57)
[2017-02-26] MEDS: ZALEPLON 5 MG CAPSULE PO PRN (20:16)
[2017-02-27] MEDS: HYDROmorphone 2 MG/1 ML VIAL IV PRN (05:29)
[2017-02-27 06:15] LABS: Basophils % 0.2 % (0.0-0.8); Hemoglobin 11.5 GM/DL (14.0-18.0); Immature Granulocytes % 0.4 %; Immature Granulocytes Absolute 0.05 #; Lymphocytes # 1.3 10*3/uL (1.4-4.0); Lymphocytes % 10.8 % (21.2-54.2); Mean Corpuscular HGB Conc 34.8 GM/DL (32-36); Mean Corpuscular Hemoglobin 29 PG (27-34); Mean Corpuscular Volume 84.2 FL (87-102); Mean Platelet Volume 9.6 FL (9.6-12.0); Monocytes # 1.1 10*3/uL (0.11-0.8); Monocytes % 8.9 % (1.7-12.7); Neutrophils # 9.8 10*3/uL (1.4-7.4); Neutrophils % 79.7 % (38.7-73.9); Platelet Count 250 T/CUMM (130-400); Red Blood Count 3.92 MC/CUMM (3.8-5.5); Red Cell Distribution Width 12.4 % (9.3-17.3); White Blood Count 12.3 T/CUMM (4-12)
[2017-02-27 07:15] LABS: Calcium 8.5 MG/DL (8.5-10.1); Magnesium 2.2 MG/DL (1.8-2.4); Osmolality,Calculated 266.7 MOS/KG (273-304); Potassium 4.1 MMOL/L (3.5-5.1)
[2017-02-27] MEDS: CARVEDILOL 6.25 MG TABLET PO SCH (09:17)
[2017-02-27] MEDS: hydrALAZINE 25 MG TABLET PO SCH ×3 (09:17→21:08)
[2017-02-27] MEDS: TICAGRELOR 90 MG TABLET PO SCH ×2 (09:17→21:08)
[2017-02-27] MEDS: ASPIRIN EC 81 MG TABLET PO SCH (09:17)
[2017-02-27] MEDS: ROSUVASTATIN 20 MG TABLET PO SCH (09:17)
[2017-02-27] MEDS: ISOSORBIDE DINITRATE 20 MG TABLET PO SCH ×3 (09:18→21:08)
[2017-02-27] MEDS: PANTOPRAZOLE 40 MG TABLET PO SCH (09:18)
[2017-02-27] MEDS: FUROSEMIDE 40 MG/4 ML VIAL IV SCH (09:23)
[2017-02-27] MEDS: SPIRONOLACTONE 25 MG TABLET PO SCH (09:27)
--- NOTE | 2017-02-27 12:56 | Cardiology Progress Note ---
<Farzaneh Aguero - Last Filed: 02/27/17 12:51> Assessment and Plan - Time spent with patient Time spent with patient: Greater than 30 minutes (due to many questions per patient, assessment, plan, and documentation) (1) NSTEMI (non-ST elevated myocardial infarction) Status: Acute Assessment and plan: February 25: 1. 41-year-old BM with hypertension status post non-STEMI with severely abnormal coronary arteries: (Very large and ectatic) with large volume thrombus in mid to distal LAD, occluded at the end of intervention, despite thrombectomy and stenting (5.0 x 18 mm dilated to 5.6 mm), as well as intracoronary TPA injection. Tachycardia is likely related to diminished cardiac output from his myocardial infarction. 2. Given his hypertension in the setting, would continue nitroglycerin (we'll try to change to BiDil equivalent), and change metoprolol to carvedilol 3.125 mg twice a day 3. I'm uncertain of his exact urine output, creatinine is modestly elevated; I' ll wait for follow-up values before starting spironolactone. 4. Aggrastat was discontinued yesterday evening due to hematuria; he reports that he no longer has gross hematuria 5. EF was 45-50% catheterization, but this may continue to decline further, as his infarct completes. 6. We'll continue to watch closely in the CCU. February 26 update: 1. Sinus tachycardia persists secondary to his AK/reduced cardiac output 2. He is asymptomatic other than his chest pain with "hiccups"; white count is little elevated, he could develop Zora's, but it is too early for that now. 3. Echocardiogram shows apical akinesis. Overall ejection fraction still around 40%; see report. 4. Increase Coreg to 6.25 mg twice a day 5. Creatinine this morning is pending, if reasonable would consider further diuretics/spironolactone 6. Can transfer to telemetry unit from my standpoint. February 27 update: 1. Sinus tachycardia persists. May consider further increasing Coreg if blood pressure tolerates. 2. Continues to have mild chest discomfort with hiccups/burping. Pain medication changed from dilaudid to [place]. 3. Echo shows apical akinesis. Overall ejection fraction still around 40%; see report. 4. Creatinine up to 1.4 today. Is receiving Lasix 40mg IV BID and Spironolactone 25mg po daily. 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 Aguirre Mr. Winter continues to do well. He continues to have some intermittent chest discomfort when he hiccups or burps. He has no shortness of breath despite persistent sinus tachycardia and has been ambulating back and forth to the bathroom without difficulty. I removed his right groin dressing. Cath site is without bleeding, hematoma, drainage, or bruit. Femoral pulse is 3+. Peripheral pulses are present and palpable. Blood pressure is well controlled with SBP averaging 115-125. Heart rates remain between 115-125. Mr. Winter tells me he had tachycardia even as a child with rates in the 110s and 120s. We have been adjusting his coreg to help with this. Exam (Progress Note) - Constitutional Vitals: Period Temp Pulse Resp BP Sys/Aggarwal Pulse Ox Last 24 Hr 97.9 F-98.9 F 98-129 16-24 115-121/54-81 91-97 Exam: General: Present: Appears Well, No Apparent Distress. Pleasant and cooperative. Appears comfortable. HEENT: Present: PERRL, Normocephaly, atraumatic. Mucus Membranes Moist. No jaundice noted. Conjunctiva moist and clear, sclerae anicteric. O2 via NBP. Neck: Present: Supple Neck, Midline Trachea, No Masses, No Bruit, No tenderness Cardiac: Present: Regular Rate and Rhythm, tachycardia, No Murmur Lungs: Present: Clear to auscultation bilaterally, no wheeze, rhonchi. Neuro: Present: Awake, alert, and oriented x3. Moves all extremities well without hemiparesis or paralysis. Grossly Intact. Absent: Resting Tremor, Essential Tremor Abdomen: Present: Soft, Active Bowel Sounds, No Masses, Non-Tender, nondistended. No abdominal bruit or thrill noted. Skin: Present: Clear. Absent: Rash, No skin breakdown. Musculoskeletal: Present: No Fluid Collection, No Pain, Normal Range of Motion Extremities: Present: Normal Gait, No Clubbing, No Cyanosis, Upper Extr. Pulses 2+, Lower Extr. Pulses 2+, No edema. Capillary refill less than 3 seconds. Right groin: dressing removed. No bleeding, hematoma, or bruit. No pain at site. Femoral pulse 3+. Distal pulses 2+. Result/EKG - Labs CBC & BMP: 02/27/17 05:10 02/27/17 05:10 Lab Results: I have reviewed the past 24 hour labs Labs: Laboratory Results - last 24 hr 02/27/17 02/27/17 05:10 05:10 WBC 12.3 H RBC 3.92 Hgb 11.5 L Hct 33.0 L MCV 84.2 L MCH 29 MCHC 34.8 RDW 12.4 Plt Count 250 MPV 9.6 Neut % (Auto) 79.7 H Lymph % (Auto) 10.8 L [place] % (Auto) 8.9 Eos % (Auto) 0.0 Baso % (Auto) 0.2 Neut # (Auto) 9.8 H Lymph # (Auto) 1.3 L [place] # (Auto) 1.1 H Eos # (Auto) 0.0 Baso # (Auto) 0.0 Immature Gran % 0.4 Nucleated RBC % 0.0 Immature Gran # 0.05 Nucleated RBCs # 0.00 Sodium 131 L Potassium 4.1 Chloride 88 L Carbon Dioxide 33 H Anion Gap 14.1 BUN 23 H Creatinine 1.40 H GFR Calculation 100 BUN/Creatinine Ratio 16.00 Glucose 116 H Calculated Osmolality 266.7 L Calcium 8.5 Magnesium 2.2 - EKG EKG results: interpreted by me, sinus rhythm EKG shows: tachycardia Specialty Discharge - Follow Up or Referrals <Hussain Aguirre - Last Filed: 02/27/17 13:55> Assessment and Plan (1) NSTEMI (non-ST elevated myocardial infarction) Status: Acute Current Visit: Yes (2) Hypertension Status: Acute Current Visit: Yes Exam (Progress Note) - Constitutional Vitals: Period Temp Pulse Resp BP Sys/Aggarwal Pulse Ox Last 24 Hr 97.9 F-98.9 F 98-129 16-24 115-121/54-81 91-97 Result/EKG - Labs CBC & BMP: 02/27/17 05:10 02/27/17 05:10 Labs: Laboratory Results - last 24 hr 02/27/17 02/27/17 05:10 05:10 WBC 12.3 H RBC 3.92 Hgb 11.5 L Hct 33.0 L MCV 84.2 L MCH 29 MCHC 34.8 RDW 12.4 Plt Count 250 MPV 9.6 Neut % (Auto) 79.7 H Lymph % (Auto) 10.8 L [place] % (Auto) 8.9 Eos % (Auto) 0.0 Baso % (Auto) 0.2 Neut # (Auto) 9.8 H Lymph # (Auto) 1.3 L [place] # (Auto) 1.1 H Eos # (Auto) 0.0 Baso # (Auto) 0.0 Immature Gran % 0.4 Nucleated RBC % 0.0 Immature Gran # 0.05 Nucleated RBCs # 0.00 Sodium 131 L Potassium 4.1 Chloride 88 L Carbon Dioxide 33 H Anion Gap 14.1 BUN 23 H Creatinine 1.40 H GFR Calculation 100 BUN/Creatinine Ratio 16.00 Glucose 116 H Calculated Osmolality 266.7 L Calcium 8.5 Magnesium 2.2
[2017-02-27] MEDS ORDERED: MAGNESIUM HYDROXIDE SUSP 30 ML UDCUP PO ONE (13:57)
--- NOTE | 2017-02-27 14:07 | Hospitalist Progress Note ---
Assessment and Plan - Time spent with patient Time spent with patient: Greater than 30 minutes (1) NSTEMI (non-ST elevated myocardial infarction) Status: Acute Assessment and plan: Defer to cards. Current Visit: Yes (2) Tachycardia Status: Acute Assessment and plan: Secondary to ID. Defer to cardiology. Current Visit: Yes (3) Essential (primary) hypertension Status: Chronic Assessment and plan: Well-controlled. Current Visit: Yes (4) Hyperlipidemia LDL goal <70 Status: Chronic Assessment and plan: Continue management. Current Visit: Yes Hospitalist: Subjective Interval history: Continues to remain tachycardic. States his chest pain is about 3 out of 10. Patient denies any shortness of breath. Exam - Constitutional Vitals: Period Temp Pulse Resp BP Sys/Aggarwal Pulse Ox Last 24 Hr 97.9 F-98.9 F 98-129 16-24 115-121/54-81 91-97 General appearance: no acute distress - Head Head exam: Present: normocephalic, atraumatic - Eye Eye exam: Present: EOMI Pupils: Present: REGINA - ENT ENT exam: Present: normal exam - Neck Neck exam: Present: normal inspection - Respiratory Respiratory exam: Present: clear to auscultation bilaterally. Absent: rhonchi, wheezes - Cardiovascular Cardiovascular exam: Present: regular rate and rhythm. Absent: gallop, rubs, systolic murmur - GI/Abdominal GI/Abdominal exam: Present: normal bowel sounds, soft. Absent: distended, firm , guarding, tenderness, rebound - Extremities Exam Extremities exam: Present: normal inspection. Absent: calf tenderness, edema Results - Labs CBC & BMP: 02/27/17 05:10 02/27/17 05:10 Lab Results: I have reviewed the past 24 hour labs Specialty Discharge - Follow Up or Referrals
[2017-02-27] MEDS: DOCUSATE SODIUM 100 MG CAPSULE PO SCH ×2 (15:17→21:08)
[2017-02-27] MEDS: ENOXAPARIN 40 MG/0.4 ML SYRINGE SUBCUT SCH (15:34)
[2017-02-27] MEDS ORDERED: SACUBITRIL/VALSARTAN 49-51 MG TABLET PO SCH (21:00)
[2017-02-27] MEDS: ZALEPLON 5 MG CAPSULE PO PRN (21:08)
[2017-02-27] MEDS: CARVEDILOL 12.5 MG TABLET PO SCH (21:08)
[2017-02-28 04:24] LABS: Basophils % 0.1 % (0.0-0.8); Eosinophils % 0.1 % (0.00-10.9); Hematocrit 27.9 VOL% (42.0-52.0); Hemoglobin 9.7 GM/DL (14.0-18.0); Immature Granulocytes % 0.5 %; Immature Granulocytes Absolute 0.05 #; Lymphocytes # 1.1 10*3/uL (1.4-4.0); Lymphocytes % 10.5 % (21.2-54.2); Mean Corpuscular HGB Conc 34.8 GM/DL (32-36); Mean Corpuscular Hemoglobin 29 PG (27-34); Mean Platelet Volume 9.5 FL (9.6-12.0); Monocytes # 1.2 10*3/uL (0.11-0.8); Monocytes % 11.6 % (1.7-12.7); Neutrophils # 7.7 10*3/uL (1.4-7.4); Neutrophils % 77.2 % (38.7-73.9); Platelet Count 233 T/CUMM (130-400); Red Blood Count 3.36 MC/CUMM (3.8-5.5); Red Cell Distribution Width 12.3 % (9.3-17.3)
[2017-02-28 04:56] LABS: Calcium 8.4 MG/DL (8.5-10.1); Free T4 (Free Thyroxine) 1.08 NG/DL (0.76-1.46); Magnesium 2.6 MG/DL (1.8-2.4); Osmolality,Calculated 266.9 MOS/KG (273-304); Potassium 3.5 MMOL/L (3.5-5.1); Thyroid Stimulating Hormone 1.22 uIU/ml (0.358-3.74)
--- NOTE | 2017-02-28 09:23 | Cardiology Progress Note ---
Assessment and Plan (1) NSTEMI (non-ST elevated myocardial infarction) Status: Acute Assessment and plan: 1. 41-year-old BM with hypertension status post non-STEMI with severely abnormal coronary arteries: (Very large and ectatic) with large volume thrombus in mid to distal LAD, occluded at the end of intervention, despite thrombectomy and stenting (5.0 x 18 mm dilated to 5.6 mm), as well as intracoronary TPA injection. Tachycardia is likely related to diminished cardiac output from his myocardial infarction. 2. Given his hypertension in the setting, would continue nitroglycerin (we'll try to change to BiDil equivalent), and change metoprolol to carvedilol 3.125 mg twice a day 3. I'm uncertain of his exact urine output, creatinine is modestly elevated; I' ll wait for follow-up values before starting spironolactone. 4. Aggrastat was discontinued yesterday evening due to hematuria; he reports that he no longer has gross hematuria 5. EF was 45-50% catheterization, but this may continue to decline further, as his infarct completes. 6. We'll continue to watch closely in the CCU. February 26 update: 1. Sinus tachycardia persists secondary to his ND/reduced cardiac output 2. He is asymptomatic other than his chest pain with "hiccups"; white count is little elevated, he could develop Zora's, but it is too early for that now. 3. Echocardiogram shows apical akinesis. Overall ejection fraction still around 40%; see report. 4. Increase Coreg to 6.25 mg twice a day 5. Creatinine this morning is pending, if reasonable would consider further diuretics/spironolactone 6. Can transfer to telemetry unit from my standpoint. February 28 update: 1. Sinus tachycardia is improved with heart rate in the 90s to 100s range 2. Increased fatigue, likely related to relative hypotension (BP systolic now 90s to 100s systolic or previous was hypertension) 3. Epistaxis with greater than 10 point drop in hematocrit; discontinue Lovenox daily shots 4. Acute prerenal azotemia/renal failure likely related to hypotension and medications; discontinue spironolactone and entresto for now 5. Check a.m. renal function and electrolytes and CBC 6. We'll plan for CV rehabilitation after discharge Current Visit: Yes (2) Hypertension Status: Acute Current Visit: Yes Cardiology - PN: Subj Interval history: Mr. Winter feels a bit more tired today. He's had some epistaxis which appears to be mild. He said he felt better yesterday walked around but feels drained currently. He also has some intermittent mild left chest pain. He is not short of breath at rest. He is not having presyncope or syncope. At any palpitations or dysrhythmia. His heart rate is improved. Exam (Progress Note) - Constitutional Vitals: Period Temp Pulse Resp BP Sys/Aggarwal Pulse Ox Last 24 Hr 98.4 F-99.5 F 91-126 16-24 90-122/55-69 90-97 General appearance: normal weight, no acute distress - Head Head exam: Present: normal inspection, normocephalic, atraumatic - Respiratory Respiratory exam: Present: clear to auscultation bilaterally. Absent: stridor, wheezes - Cardiovascular Cardiovascular exam: Present: tachycardia. Absent: diastolic murmur, rubs, systolic murmur - GI/Abdominal GI/Abdominal exam: Present: soft. Absent: tenderness - Extremities Exam Extremities exam: Absent: edema - Neurological Exam Neurological exam: Present: alert, oriented X3, normal gait Result/EKG - Labs CBC & BMP: 02/28/17 03:59 02/28/17 03:59 Labs: Laboratory Results - last 24 hr 02/28/17 02/28/17 03:59 03:59 WBC 10.0 RBC 3.36 L Hgb 9.7 L Hct 27.9 L MCV 83.0 L MCH 29 MCHC 34.8 RDW 12.3 Plt Count 233 MPV 9.5 L Neut % (Auto) 77.2 H Lymph % (Auto) 10.5 L [place] % (Auto) 11.6 Eos % (Auto) 0.1 Baso % (Auto) 0.1 Neut # (Auto) 7.7 H Lymph # (Auto) 1.1 L [place] # (Auto) 1.2 H Eos # (Auto) 0.0 Baso # (Auto) 0.0 Immature Gran % 0.5 Nucleated RBC % 0.0 Immature Gran # 0.05 Nucleated RBCs # 0.00 Sodium 129 L Potassium 3.5 Chloride 88 L Carbon Dioxide 30 Anion Gap 14.5 BUN 35 H D Creatinine 2.40 H GFR Calculation 52 BUN/Creatinine Ratio 14.00 Glucose 120 H Calculated Osmolality 266.9 L Calcium 8.4 L Magnesium 2.6 H Free T4 1.08 TSH 3rd Generation 1.220 Specialty Discharge - Follow Up or Referrals
[2017-02-28] MEDS: ROSUVASTATIN 20 MG TABLET PO SCH (09:45)
[2017-02-28] MEDS: ASPIRIN EC 81 MG TABLET PO SCH (09:45)
[2017-02-28] MEDS: TICAGRELOR 90 MG TABLET PO SCH ×2 (09:45→20:55)
[2017-02-28] MEDS: CARVEDILOL 12.5 MG TABLET PO SCH ×2 (09:45→20:55)
[2017-02-28] MEDS: ISOSORBIDE DINITRATE 20 MG TABLET PO SCH ×3 (09:46→20:55)
[2017-02-28] MEDS: DOCUSATE SODIUM 100 MG CAPSULE PO SCH ×2 (09:46→20:55)
[2017-02-28] MEDS: hydrALAZINE 25 MG TABLET PO SCH ×3 (09:46→20:55)
[2017-02-28] MEDS: PANTOPRAZOLE 40 MG TABLET PO SCH (09:46)
[2017-02-28] MEDS: FUROSEMIDE 80 MG TABLET PO SCH (09:46)
--- NOTE | 2017-02-28 11:05 | Hospitalist Progress Note ---
Assessment and Plan - Time spent with patient Time spent with patient: Greater than 30 minutes (1) NSTEMI (non-ST elevated myocardial infarction) Status: Acute Assessment and plan: Defer to cards. Current Visit: Yes (2) Tachycardia Status: Acute Assessment and plan: Improving. Current Visit: Yes (3) Essential (primary) hypertension Status: Chronic Assessment and plan: Well-controlled. Current Visit: Yes (4) Hyperlipidemia LDL goal <70 Status: Chronic Assessment and plan: Continue management. Current Visit: Yes Hospitalist: Subjective Interval history: Patient has no cough, shortness of breath or chest pain. Blew his nose this morning and had some nosebleed which is resolved. No overnight events the exception of mild low-grade temperature of 99.2. States he feels he has been having some hot flashes. Exam - Constitutional Vitals: Period Temp Pulse Resp BP Sys/Aggarwal Pulse Ox Last 24 Hr 98.4 F-99.5 F 91-126 16-24 90-122/55-69 90-97 General appearance: no acute distress - Head Head exam: Present: normocephalic, atraumatic - Eye Eye exam: Present: EOMI Pupils: Present: REGINA - ENT ENT exam: Present: normal exam - Neck Neck exam: Present: normal inspection - Respiratory Respiratory exam: Present: clear to auscultation bilaterally. Absent: rhonchi, wheezes - Cardiovascular Cardiovascular exam: Present: regular rate and rhythm. Absent: gallop, rubs, systolic murmur - GI/Abdominal GI/Abdominal exam: Present: normal bowel sounds, soft. Absent: distended, firm , guarding, tenderness, rebound - Extremities Exam Extremities exam: Present: normal inspection. Absent: calf tenderness, edema Results - Labs CBC & BMP: 02/28/17 03:59 02/28/17 03:59 Lab Results: I have reviewed the past 24 hour labs Specialty Discharge - Follow Up or Referrals
[2017-02-28] MEDS ORDERED: MORPHINE 2 MG/1 ML SYRINGE IV PRN (16:17)
[2017-02-28] MEDS ORDERED: BISACODYL 5 MG TABLET PO ONE (16:18)
[2017-03-01 04:48] LABS: Basophils % 0.3 % (0.0-0.8); Eosinophils % 0.5 % (0.00-10.9); Hematocrit 28.8 VOL% (42.0-52.0); Hemoglobin 10.2 GM/DL (14.0-18.0); Immature Granulocytes % 0.5 %; Immature Granulocytes Absolute 0.03 #; Lymphocytes % 16.8 % (21.2-54.2); Mean Corpuscular HGB Conc 35.4 GM/DL (32-36); Mean Corpuscular Hemoglobin 29 PG (27-34); Mean Corpuscular Volume 82.3 FL (87-102); Mean Platelet Volume 9.4 FL (9.6-12.0); Monocytes # 0.7 10*3/uL (0.11-0.8); Neutrophils # 4.3 10*3/uL (1.4-7.4); Neutrophils % 70.9 % (38.7-73.9); Platelet Count 297 T/CUMM (130-400); Red Cell Distribution Width 12.3 % (9.3-17.3); White Blood Count 6.1 T/CUMM (4-12)
[2017-03-01 05:28] LABS: Calcium 8.7 MG/DL (8.5-10.1); Magnesium 2.8 MG/DL (1.8-2.4); Osmolality,Calculated 271.5 MOS/KG (273-304); Potassium 3.5 MMOL/L (3.5-5.1)
--- NOTE | 2017-03-01 08:12 | Cardiology Progress Note ---
Assessment and Plan (1) NSTEMI (non-ST elevated myocardial infarction) Status: Acute Assessment and plan: 1. 41-year-old BM with hypertension status post non-STEMI with severely abnormal coronary arteries: (Very large and ectatic) with large volume thrombus in mid to distal LAD, occluded at the end of intervention, despite thrombectomy and stenting (5.0 x 18 mm dilated to 5.6 mm), as well as intracoronary TPA injection. Tachycardia is likely related to diminished cardiac output from his myocardial infarction. 2. Given his hypertension in the setting, would continue nitroglycerin (we'll try to change to BiDil equivalent), and change metoprolol to carvedilol 3.125 mg twice a day 3. I'm uncertain of his exact urine output, creatinine is modestly elevated; I' ll wait for follow-up values before starting spironolactone. 4. Aggrastat was discontinued yesterday evening due to hematuria; he reports that he no longer has gross hematuria 5. EF was 45-50% catheterization, but this may continue to decline further, as his infarct completes. 6. We'll continue to watch closely in the CCU. February 26 update: 1. Sinus tachycardia persists secondary to his HI/reduced cardiac output 2. He is asymptomatic other than his chest pain with "hiccups"; white count is little elevated, he could develop Zora's, but it is too early for that now. 3. Echocardiogram shows apical akinesis. Overall ejection fraction still around 40%; see report. 4. Increase Coreg to 6.25 mg twice a day 5. Creatinine this morning is pending, if reasonable would consider further diuretics/spironolactone 6. Can transfer to telemetry unit from my standpoint. February 28 update: 1. Sinus tachycardia is improved with heart rate in the 90s to 100s range 2. Increased fatigue, likely related to relative hypotension (BP systolic now 90s to 100s systolic or previous was hypertension) 3. Epistaxis with greater than 10 point drop in hematocrit; discontinue Lovenox daily shots 4. Acute prerenal azotemia/renal failure likely related to hypotension and medications; discontinue spironolactone and entresto for now 5. Check a.m. renal function and electrolytes and CBC 6. We'll plan for CV rehabilitation after discharge March 01 update: 1. Heart rate continues to be in the 90s to 100 range 2. Clinically improving but still with some dyspnea on exertion and pleuritic chest pain (his temperature 99 degrees) 3. Creatinine significant improved to 1.4 (normal baseline, prompted me to hold his spironolactone and Entresto yesterday) 4. Try to resume Entresto one half tablet twice a day, with follow-up lab in the morning 5. Change to full dose aspirin for some minor anti-inflammatory effect 6. Would expect to be ready for discharge in the next day or 2 depending how he does clinically, and if his creatinine and blood pressure are in reasonable ranges. 7. He is not to work until cleared on follow-up. At this point he should not work for at least a month. 8. Strongly recommended CV rehabilitation program Current Visit: Yes (2) Hypertension Status: Acute Current Visit: Yes Cardiology - PN: Subj Interval history: Mr. Winter feels better overall but does have dyspnea and chest pain when he walks down the hallway. However his chest pain is worsened by taking a deep breath. He is not having orthopnea presyncope or syncope. One episode of dizziness. Exam (Progress Note) - Constitutional Vitals: Period Temp Pulse Resp BP Sys/Aggarwal Pulse Ox Last 24 Hr 98.5 F-99.9 F 96-110 18-20 95-113/49-78 93-98 General appearance: normal weight, no acute distress - Head Head exam: Present: normal inspection, normocephalic, atraumatic - Respiratory Respiratory exam: Present: clear to auscultation bilaterally. Absent: stridor, wheezes - Cardiovascular Cardiovascular exam: Present: regular rate and rhythm. Absent: diastolic murmur , rubs, systolic murmur - GI/Abdominal GI/Abdominal exam: Present: soft. Absent: tenderness - Extremities Exam Extremities exam: Absent: edema Result/EKG - Labs CBC & BMP: 03/01/17 04:35 03/01/17 04:35 Labs: Laboratory Results - last 24 hr 03/01/17 03/01/17 04:35 04:35 WBC 6.1 D RBC 3.50 L Hgb 10.2 L Hct 28.8 L MCV 82.3 L MCH 29 MCHC 35.4 RDW 12.3 Plt Count 297 D MPV 9.4 L Neut % (Auto) 70.9 Lymph % (Auto) 16.8 L [place] % (Auto) 11.0 Eos % (Auto) 0.5 Baso % (Auto) 0.3 Neut # (Auto) 4.3 Lymph # (Auto) 1.0 L [place] # (Auto) 0.7 Eos # (Auto) 0.0 Baso # (Auto) 0.0 Immature Gran % 0.5 Nucleated RBC % 0.0 Immature Gran # 0.03 Nucleated RBCs # 0.00 Sodium 132 L Potassium 3.5 Chloride 91 L Carbon Dioxide 32 Anion Gap 12.5 BUN 31 H Creatinine 1.40 H GFR Calculation 99 BUN/Creatinine Ratio 22.00 H Glucose 113 H Calculated Osmolality 271.5 L Calcium 8.7 Magnesium 2.8 H Specialty Discharge - Follow Up or Referrals
[2017-03-01] MEDS: ISOSORBIDE DINITRATE 20 MG TABLET PO SCH ×3 (09:36→20:33)
[2017-03-01] MEDS: FUROSEMIDE 80 MG TABLET PO SCH (09:36)
[2017-03-01] MEDS: ROSUVASTATIN 20 MG TABLET PO SCH (09:36)
[2017-03-01] MEDS: TICAGRELOR 90 MG TABLET PO SCH ×2 (09:36→20:33)
[2017-03-01] MEDS: SACUBITRIL/VALSARTAN 49-51 MG TABLET PO SCH ×2 (09:36→20:33)
[2017-03-01] MEDS: CARVEDILOL 12.5 MG TABLET PO SCH ×2 (09:36→20:39)
[2017-03-01] MEDS: DOCUSATE SODIUM 100 MG CAPSULE PO SCH ×2 (09:37→20:33)
[2017-03-01] MEDS: ASPIRIN EC 325 MG TABLET PO SCH (09:37)
[2017-03-01] MEDS: hydrALAZINE 25 MG TABLET PO SCH ×3 (09:37→20:33)
[2017-03-01] MEDS: PANTOPRAZOLE 40 MG TABLET PO SCH (09:37)
--- NOTE | 2017-03-01 13:29 | Hospitalist Progress Note ---
Assessment and Plan - Time spent with patient Time spent with patient: Greater than 30 minutes (1) NSTEMI (non-ST elevated myocardial infarction) Status: Acute Assessment and plan: Defer to cards. Current Visit: Yes (2) Tachycardia Status: Acute Assessment and plan: Improving. Current Visit: Yes (3) Essential (primary) hypertension Status: Chronic Assessment and plan: Well-controlled. Current Visit: Yes (4) Hyperlipidemia LDL goal <70 Status: Chronic Assessment and plan: Continue management. Current Visit: Yes Hospitalist: Subjective Interval history: Reports occasional episodes of chest pain at 6 out of 10. Exam - Constitutional Vitals: Period Temp Pulse Resp BP Sys/Aggarwal Pulse Ox Last 24 Hr 97.5 F-99.2 F 96-110 18-20 103-130/49-78 95-98 General appearance: no acute distress - Head Head exam: Present: normocephalic, atraumatic - Eye Eye exam: Present: EOMI Pupils: Present: REGINA - ENT ENT exam: Present: normal exam - Neck Neck exam: Present: normal inspection - Respiratory Respiratory exam: Present: clear to auscultation bilaterally. Absent: rhonchi, wheezes - Cardiovascular Cardiovascular exam: Present: regular rate and rhythm. Absent: gallop, rubs, systolic murmur - GI/Abdominal GI/Abdominal exam: Present: normal bowel sounds, soft. Absent: distended, firm , guarding, tenderness, rebound - Extremities Exam Extremities exam: Present: normal inspection. Absent: calf tenderness, edema Results - Labs CBC & BMP: 03/01/17 04:35 03/01/17 04:35 Lab Results: I have reviewed the past 24 hour labs Specialty Discharge - Follow Up or Referrals
[2017-03-02 05:10] LABS: Basophils % 0.2 % (0.0-0.8); Eosinophils # 0.1 10*3/uL (0.0-0.87); Eosinophils % 1.8 % (0.00-10.9); Hematocrit 28.6 VOL% (42.0-52.0); Hemoglobin 10.1 GM/DL (14.0-18.0); Immature Granulocytes % 0.6 %; Immature Granulocytes Absolute 0.04 #; Lymphocytes # 1.2 10*3/uL (1.4-4.0); Lymphocytes % 19.3 % (21.2-54.2); Mean Corpuscular HGB Conc 35.3 GM/DL (32-36); Mean Corpuscular Hemoglobin 29 PG (27-34); Mean Corpuscular Volume 81.5 FL (87-102); Mean Platelet Volume 9.7 FL (9.6-12.0); Monocytes # 0.8 10*3/uL (0.11-0.8); Monocytes % 12.4 % (1.7-12.7); Neutrophils # 4.1 10*3/uL (1.4-7.4); Neutrophils % 65.7 % (38.7-73.9); Platelet Count 323 T/CUMM (130-400); Red Blood Count 3.51 MC/CUMM (3.8-5.5); Red Cell Distribution Width 12.4 % (9.3-17.3); White Blood Count 6.3 T/CUMM (4-12)
[2017-03-02 05:51] LABS: Calcium 8.6 MG/DL (8.5-10.1); Magnesium 2.4 MG/DL (1.8-2.4); Osmolality,Calculated 266.5 MOS/KG (273-304); Potassium 3.4 MMOL/L (3.5-5.1)
[2017-03-02] MEDS: TICAGRELOR 90 MG TABLET PO SCH ×2 (08:47→21:11)
[2017-03-02] MEDS: FUROSEMIDE 80 MG TABLET PO SCH (08:47)
[2017-03-02] MEDS: ROSUVASTATIN 20 MG TABLET PO SCH (08:47)
[2017-03-02] MEDS: ISOSORBIDE DINITRATE 20 MG TABLET PO SCH ×3 (08:47→21:10)
[2017-03-02] MEDS: PANTOPRAZOLE 40 MG TABLET PO SCH (08:47)
[2017-03-02] MEDS: CARVEDILOL 12.5 MG TABLET PO SCH ×2 (08:47→21:10)
[2017-03-02] MEDS: DOCUSATE SODIUM 100 MG CAPSULE PO SCH ×2 (08:48→21:10)
[2017-03-02] MEDS: SACUBITRIL/VALSARTAN 49-51 MG TABLET PO SCH ×2 (08:48→21:10)
[2017-03-02] MEDS: ASPIRIN EC 325 MG TABLET PO SCH (08:48)
[2017-03-02] MEDS: hydrALAZINE 25 MG TABLET PO SCH ×2 (08:49→15:14)
[2017-03-02] MEDS ORDERED: POTASSIUM CHLORIDE 20 MEQ/15 ML UDCUP PO ONE (14:16)
--- NOTE | 2017-03-02 14:32 | Cardiology Progress Note ---
<Aguero,Farzaneh E - Last Filed: 03/02/17 14:13> Assessment and Plan - Time spent with patient Time spent with patient: Less than 30 minutes (1) NSTEMI (non-ST elevated myocardial infarction) Status: Acute Assessment and plan: Clinically improving but continues to have some HAYWARD and pleuritic CP. Entresto has been started BID. When discharged, he is to follow up with Dr. Aguirre in 2 weeks with BMP w/ Magnesium level. He needs a Brilinta discount card at discharge. He also has a 2 week supply of samples of Entresto waiting for him at the clinic since his work insurance does not take affect for 2 more weeks. Current Visit: Yes (2) Essential (primary) hypertension Status: Chronic Assessment and plan: Currently well controlled on present therapy. Current Visit: Yes (3) Hyperlipidemia LDL goal <70 Status: Chronic Assessment and plan: Continue Crestor 40mg PO daily. Current Visit: Yes (4) Tachycardia Status: Chronic Assessment and plan: This is overall much improved. His Coreg dose has been increased to 12.5mg PO BID and he is tolerating this well. HR's have been in the 90's today. Current Visit: Yes (5) Hypokalemia Status: Acute Assessment and plan: Potassium 3.4 today. Will give one dose of Potassium 20 mEq PO today. Will follow BMP. Current Visit: Yes Cardiology - PN: Subj Interval history: Mr. Winter is feeling much better today. He reports he feels like he his energy is coming back. He continues to have some chest pain when he coughs, sneezes, or takes a deep breath. He reports he has been able to walk more and is tolerating that better. Blood pressure is well controlled today. Heart rates have been stable in the 90's. This is overall much improved. His creatinine is 1.2 today, potassium 3.4. We will give him a dose of PO potassium. He is on Brilinta and Entresto. We will ask the nurses to make sure he has a discount card for the Brilinta upon discharge since the patient's insurance doesn't kick in for another 2 weeks. We will also try to get him some samples of Entresto from the clinic. His right groin cath site looks good. It is open to air, has no bleeding, hematoma, or bruit at site. Femoral pulse is 3+. Distal pulses are 2+ bilaterally. Exam (Progress Note) - Constitutional Vitals: Period Temp Pulse Resp BP Sys/Aggarwal Pulse Ox Last 24 Hr 98.4 F-99.6 F 90-107 18-20 98-116/51-67 18- Exam: General: Present: Appears Well, No Apparent Distress. Pleasant and cooperative. Appears comfortable. HEENT: Present: PERRL, Normocephaly, atraumatic. Mucus Membranes Moist. No jaundice noted. Conjunctiva moist and clear, sclerae anicteric. O2 via NBP. Neck: Present: Supple Neck, Midline Trachea, No Masses, No Bruit, No tenderness Cardiac: Present: Regular Rate and Rhythm, No Murmur Lungs: Present: Clear to auscultation bilaterally, no wheeze, rhonchi. Neuro: Present: Awake, alert, and oriented x3. Moves all extremities well without hemiparesis or paralysis. Grossly Intact. Absent: Resting Tremor, Essential Tremor Abdomen: Present: Soft, Active Bowel Sounds, No Masses, Non-Tender, nondistended. No abdominal bruit or thrill noted. Skin: Present: Clear. Absent: Rash, No skin breakdown. Musculoskeletal: Present: No Fluid Collection, No Pain, Normal Range of Motion Extremities: Present: Normal Gait, No Clubbing, No Cyanosis, Upper Extr. Pulses 2+, Lower Extr. Pulses 2+, No edema. Capillary refill less than 3 seconds. Right groin: dressing removed. No bleeding, hematoma, or bruit. No pain at site. Femoral pulse 3+. Distal pulses 2+. Result/EKG - Labs CBC & BMP: 03/02/17 04:01 03/02/17 04:01 Lab Results: I have reviewed the past 24 hour labs Labs: Laboratory Results - last 24 hr 03/02/17 03/02/17 04:01 04:01 WBC 6.3 RBC 3.51 L Hgb 10.1 L Hct 28.6 L MCV 81.5 L MCH 29 MCHC 35.3 RDW 12.4 Plt Count 323 MPV 9.7 Neut % (Auto) 65.7 Lymph % (Auto) 19.3 L Maverick % (Auto) 12.4 Eos % (Auto) 1.8 Baso % (Auto) 0.2 Neut # (Auto) 4.1 Lymph # (Auto) 1.2 L Maverick # (Auto) 0.8 Eos # (Auto) 0.1 Baso # (Auto) 0.0 Immature Gran % 0.6 Nucleated RBC % 0.0 Immature Gran # 0.04 Nucleated RBCs # 0.00 Sodium 132 L Potassium 3.4 L Chloride 92 L Carbon Dioxide 29 Anion Gap 14.4 BUN 22 H Creatinine 1.20 GFR Calculation 119 BUN/Creatinine Ratio 18.00 Glucose 106 Calculated Osmolality 266.5 L Calcium 8.6 Magnesium 2.4 - EKG EKG results: interpreted by me, sinus rhythm Specialty Discharge - Follow Up or Referrals Follow up with: Hussain Aguirre MD [Physician] - 2 Weeks (Follow up with Dr. Aguirre in 2 weeks with BMP w/ Mg. ) <Pascale Gruber - Last Filed: 03/02/17 19:03> Cardiology - PN: Subj Interval history: I have personally interviewed and evaluated the patient, reviewed the chart and discussed medical decision-making with practitioner Laci. I have read this note and agree with her documentation here in. The patient continues to have some chest discomfort which seems to be more pleuritic in nature. He is also experiencing some shortness of breath. He is unsure whether or not this is related to the timing of his medications. I'm going to check a chest x-ray, we will check a BNP in the morning. He is not appear to be in heart failure on exam. We will decrease his aspirin 81 mg daily , I am going to discontinue his hydralazine and evaluate his tachycardia and blood pressure, see if we can't increase his Coreg depending on his hemodynamics. Hopefully we'll be able to discharge him home soon. Exam (Progress Note) - Constitutional Vitals: Period Temp Pulse Resp BP Sys/Aggarwal Pulse Ox Last 24 Hr 98.5 F-99.6 F 90-107 18-20 103-121/53-67 18-98 Result/EKG - Labs CBC & BMP: 03/02/17 04:01 03/02/17 04:01 Labs: Laboratory Results - last 24 hr 03/02/17 03/02/17 04:01 04:01 WBC 6.3 RBC 3.51 L Hgb 10.1 L Hct 28.6 L MCV 81.5 L MCH 29 MCHC 35.3 RDW 12.4 Plt Count 323 MPV 9.7 Neut % (Auto) 65.7 Lymph % (Auto) 19.3 L Maverick % (Auto) 12.4 Eos % (Auto) 1.8 Baso % (Auto) 0.2 Neut # (Auto) 4.1 Lymph # (Auto) 1.2 L Maverick # (Auto) 0.8 Eos # (Auto) 0.1 Baso # (Auto) 0.0 Immature Gran % 0.6 Nucleated RBC % 0.0 Immature Gran # 0.04 Nucleated RBCs # 0.00 Sodium 132 L Potassium 3.4 L Chloride 92 L Carbon Dioxide 29 Anion Gap 14.4 BUN 22 H Creatinine 1.20 GFR Calculation 119 BUN/Creatinine Ratio 18.00 Glucose 106 Calculated Osmolality 266.5 L Calcium 8.6 Magnesium 2.4
--- NOTE | 2017-03-02 14:43 | EKG Report ---
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
--- NOTE | 2017-03-02 16:44 | Hospitalist Progress Note ---
Assessment and Plan - Time spent with patient Time spent with patient: Greater than 30 minutes (1) NSTEMI (non-ST elevated myocardial infarction) Status: Acute Assessment and plan: Defer to cards. Current Visit: Yes (2) Tachycardia Status: Chronic Assessment and plan: Stable. Current Visit: Yes (3) Essential (primary) hypertension Status: Chronic Assessment and plan: Well-controlled. Current Visit: Yes (4) Hyperlipidemia LDL goal <70 Status: Chronic Assessment and plan: Continue management. Current Visit: Yes Hospitalist: Subjective Interval history: No complaints this morning. No overnight events he feels great. Exam - Constitutional Vitals: Period Temp Pulse Resp BP Sys/Aggarwal Pulse Ox Last 24 Hr 98.4 F-99.6 F 90-107 18-20 98-121/51-67 18-98 General appearance: no acute distress - Head Head exam: Present: normocephalic, atraumatic - Eye Eye exam: Present: EOMI Pupils: Present: REGINA - ENT ENT exam: Present: normal exam - Neck Neck exam: Present: normal inspection - Respiratory Respiratory exam: Present: clear to auscultation bilaterally. Absent: rhonchi, wheezes - Cardiovascular Cardiovascular exam: Present: regular rate and rhythm, tachycardia. Absent: gallop, rubs, systolic murmur - GI/Abdominal GI/Abdominal exam: Present: normal bowel sounds, soft. Absent: distended, firm , guarding, tenderness, rebound - Extremities Exam Extremities exam: Present: normal inspection. Absent: calf tenderness, edema Results - Labs CBC & BMP: 03/02/17 04:01 03/02/17 04:01 Lab Results: I have reviewed the past 24 hour labs Specialty Discharge - Follow Up or Referrals Follow up with: Hussain Aguirre MD [Physician] - 2 Weeks (Follow up with Dr. Aguirre in 2 weeks with BMP w/ Mg. )
--- NOTE | 2017-03-02 22:29 | XRay Report ---
History: Shortness of breath Date: 03/02/2017 Study: Chest x-ray PA and lateral Comparison exam: February 24, 2017 chest x-ray The cardiomediastinal silhouette and pulmonary vasculature are unremarkable. There is platelike atelectasis in the lower lobes which has developed since the previous study. The lungs and pleural spaces are otherwise clear. The osseous structures are unremarkable. Impression: Platelike atelectasis has developed in the lower lobes since the previous study. Otherwise unchanged PROCEDURE INTERPRETED AT [facility] DEPARTMENT OF RADIOLOGY Final Report Signed by: Dr. Sharee Summers
[2017-03-03 06:26] LABS: Basophils % 0.6 % (0.0-0.8); Eosinophils # 0.1 10*3/uL (0.0-0.87); Eosinophils % 1.6 % (0.00-10.9); Hematocrit 29.2 VOL% (42.0-52.0); Hemoglobin 9.9 GM/DL (14.0-18.0); Immature Granulocytes % 0.6 %; Immature Granulocytes Absolute 0.04 #; Lymphocytes # 1.4 10*3/uL (1.4-4.0); Lymphocytes % 21.7 % (21.2-54.2); Mean Corpuscular HGB Conc 33.9 GM/DL (32-36); Mean Corpuscular Hemoglobin 29 PG (27-34); Mean Corpuscular Volume 84.1 FL (87-102); Mean Platelet Volume 9.4 FL (9.6-12.0); Monocytes # 0.8 10*3/uL (0.11-0.8); Neutrophils # 3.9 10*3/uL (1.4-7.4); Neutrophils % 62.5 % (38.7-73.9); Platelet Count 335 T/CUMM (130-400); Red Blood Count 3.47 MC/CUMM (3.8-5.5); Red Cell Distribution Width 12.5 % (9.3-17.3); White Blood Count 6.3 T/CUMM (4-12)
[2017-03-03 07:01] LABS: Calcium 8.7 MG/DL (8.5-10.1); Magnesium 2.2 MG/DL (1.8-2.4); Osmolality,Calculated 273.8 MOS/KG (273-304); Potassium 3.7 MMOL/L (3.5-5.1)
[2017-03-03] MEDS: PANTOPRAZOLE 40 MG TABLET PO SCH (08:32)
[2017-03-03] MEDS: ISOSORBIDE DINITRATE 20 MG TABLET PO SCH (08:33)
[2017-03-03] MEDS: FUROSEMIDE 80 MG TABLET PO SCH (08:33)
[2017-03-03] MEDS: ROSUVASTATIN 20 MG TABLET PO SCH (08:34)
[2017-03-03] MEDS: SACUBITRIL/VALSARTAN 49-51 MG TABLET PO SCH (08:34)
[2017-03-03] MEDS: DOCUSATE SODIUM 100 MG CAPSULE PO SCH (08:34)
[2017-03-03] MEDS: TICAGRELOR 90 MG TABLET PO SCH (08:34)
[2017-03-03] MEDS: CARVEDILOL 12.5 MG TABLET PO SCH (08:34)
[2017-03-03] MEDS ORDERED: ASPIRIN EC 81 MG TABLET PO SCH (09:00)
[2017-03-03 11:40] VITALS: BP 119/62
--- NOTE | 2017-03-03 12:12 | Discharge Summary ---
Hospital Course - Hospital Course Hospital Course: Mr. Winter was admitted for evaluation of chest pain. Initial troponin was mildly elevated at 0.1 and repeat was 6. Echocardiogram revealed ejection fraction of 40%. Patient was taken to the [facility]. The patient was found to have severely ectatic right coronary and left anterior descending arteries with a right dominant system. Large thrombus burden in the mid to distal LAD extending to the proximal portion of the second diagonal. Patient had a stent placed in the mid LAD, 5.0 x 18 ultra stent dilated to 5.6 mm. With regard to the patient's thrombus burden he received intracoronary TPA as well as Aggrastat however the patient developed some hematuria and the Aggrastat was discontinued. Patient received medical management to include Brilinta and aspirin. Blood pressure medications were adjusted and the patient's tachycardia was controlled. He remained hospitalized for observation and further modification of his medications. At time of discharge patient was complaining of some pleuritic chest pain which was evaluated with a CT of his chest which revealed no pulmonary embolism. He developed mild acute kidney injury secondary to hypotension and newly restarted meds which were held and his kidney function returned to baseline. Patient will continue as an outpatient cardiovascular rehabilitation. He had met maximum benefit of hospitalization at discharge. I spent 45 minutes coordinating this discharge. - Time spent with patient Time with patient DS: Greater than 30 minutes Diagnosis - Discharge Diagnosis (1) NSTEMI (non-ST elevated myocardial infarction) Status: Acute (2) Tachycardia Status: Chronic (3) Essential (primary) hypertension Status: Chronic (4) Hyperlipidemia LDL goal <70 Status: Chronic Specialty Discharge - Follow Up or Referrals Follow up with: Hussain Aguirre MD [Physician] - 03/12/17 1:10 pm (Follow up with Dr. Aguirre in 2 weeks with BMP w/ Mg. Be there at 12:50 p.m. for lab work.) Discharge Plan - Discharge Data Disposition: Disch To Home/Self Care Condition at Discharge: Stable Discharge Diet: heart healthy, low fat, low cholesterol Activity: resume usual activities as tolerated Hygiene: no restrictions - Discharge Medications New Aspirin EC Tab 81 mg PO DAILY #30 tablet Isosorbide Dinitrate [Isordil] 20 mg PO TID #90 tablet Nitroglycerin Sl Tab [Nitrostat] 0.4 mg SL Q5M PRN #50 tablet PRN Reason: Chest Pain Potassium Chloride [K-Tab ER] 10 meq PO DAILY #30 tablet.er Rosuvastatin [Crestor] 40 mg PO DAILY #30 tablet Ticagrelor [Brilinta] 90 mg PO BID #60 tablet Carvedilol [Coreg] 25 mg PO BID #60 tablet Sacubitril/Valsartan [Entresto 49 mg-51 mg Tablet] 0.5 tablet PO BID #60 tablet Furosemide Tab [Lasix Tab] 40 mg PO DAILY #30 tablet - Follow Up or Referral Follow Up: Hussain Aguirre MD [Physician] - 03/12/17 1:10 pm (Follow up with Dr. Aguirre in 2 weeks with BMP w/ Mg. Be there at 12:50 p.m. for lab work.) - Forms/Instructions Instructions: Ticagrelor (By mouth), Myocardial Infarction (GEN), Left Heart Catheterization (DC), Heart Healthy Diet (GEN), Coronary Intravascular Stent Placement, Warehouser (GEN) Exam - Constitutional Vitals: Period Temp Pulse Resp BP Sys/Aggarwal Pulse Ox Last 24 Hr 97.6 F-98.9 F 93-105 17-20 114-129/61-70 98-100 General appearance: normal weight, no acute distress - Head Head exam: Present: normal inspection, normocephalic, atraumatic - Eye Eye exam: Present: EOMI Pupils: Present: REGINA - ENT ENT exam: Present: normal exam - Neck Neck exam: Present: normal inspection - Respiratory Respiratory exam: Present: clear to auscultation bilaterally. Absent: accessory muscle use, prolonged expiratory phase, wheezes - Cardiovascular Cardiovascular exam: Present: regular rate and rhythm. Absent: bradycardia, irregular rhythm, systolic murmur - GI/Abdominal GI/Abdominal exam: Present: normal bowel sounds. Absent: ascites, distended, hypoactive bowel sounds, tenderness - Extremities Exam Extremities exam: Present: normal inspection Discharge Results Procedures and tests throughout hospitalization: Pending Orders 03/04/17 04:00 Basic Metabolic Panel w/Mg IN AM 03/05/17 04:00 Basic Metabolic Panel w/Mg IN AM Labs on day of discharge: Labs from last 24 hours 03/03/17 03/03/17 03/03/17 05:40 05:40 05:40 WBC 6.3 RBC 3.47 L Hgb 9.9 L Hct 29.2 L MCV 84.1 L MCH 29 MCHC 33.9 RDW 12.5 Plt Count 335 MPV 9.4 L Neut % (Auto) 62.5 Lymph % (Auto) 21.7 King[place]isher % (Auto) 13.0 H Eos % (Auto) 1.6 Baso % (Auto) 0.6 Neut # (Auto) 3.9 Lymph # (Auto) 1.4 [place] # (Auto) 0.8 Eos # (Auto) 0.1 Baso # (Auto) 0.0 Immature Gran % 0.6 Nucleated RBC % 0.0 Immature Gran # 0.04 Nucleated RBCs # 0.00 Sodium 137 Potassium 3.7 Chloride 96 L Carbon Dioxide 31 Anion Gap 13.7 BUN 15 Creatinine 1.20 GFR Calculation 120 BUN/Creatinine Ratio 12.00 Glucose 106 Calculated Osmolality 273.8 Calcium 8.7 Magnesium 2.2 B-Natriuretic Peptide 141 H DS: Provider Date of admission: 02/24/17 09:15 Primary care physician: . No PCP Attending physician on admission: Sameera Felipe MD Consults: 02/24/17 13:44 Consult to Physician [CONS] Routine Comment: Consulting Provider: Cardiology - [facility] When should Consulting Provider be notified: Now 02/24/17 17:25 Consult to Cardiac Rehabilitation [CONS] Routine Reason for Cardiac Rehabilitation: Appt Out Pt Cardiac Rehab Consult Comment: NSTEMI STENT 02/26/17 09:15 Consult to Case Mgmt/Social Srvs [CONS] Routine Reason for Case Mgmt/Social Srvs: Other Consult Comment: short term disablity. 03/02/17 14:49 Consult to Case Mgmt/Social Srvs [CONS] Routine Reason for Case Mgmt/Social Srvs: Other Consult Comment: FMLA assistance. Discharging clinician: Sameera Felipe MD Expected date of discharge: 03/03/17
--- NOTE | 2017-03-03 13:19 | CT Report ---
CT of the chest with intravenous contrast, PE protocol. 80 cc Omni 350. Axial images were obtained with sagittal and coronal 2-D and 3-D reconstructions. No prior studies. Indication: Pleuritic chest pain. The thyroid gland is normal in size. There is no supraclavicular or axillary lymphadenopathy. There is bilateral gynecomastia. The thoracic aorta is of normal caliber. The heart is normal in size. There is left ventricular hypertrophy. Suspected coronary artery stent visible. No pericardial or pleural effusion. There is limitation and opacification of the pulmonary arteries. No definite pulmonary thromboembolism seen. No hilar or mediastinal lymphadenopathy is seen. No infiltrates are seen. Moderate areas of platelike atelectasis are present at each lung base. Impression: 1. Left ventricular hypertrophy. 2. Moderately severe platelike areas of atelectasis within each lung base. 3. No evidence of pulmonary thromboembolism. 4. Gynecomastia. The CT exam was performed using one or more of the following dose reduction techniques: Automated exposure control, adjustment of the mA and/or kV according to patient size, or use of iterative reconstruction technique. PROCEDURE INTERPRETED AT [facility] DEPARTMENT OF RADIOLOGY Final Report Signed by: Dr. Violeta Barnes
--- NOTE | 2017-03-03 14:47 | Cardiology Progress Note ---
Assessment and Plan (1) Coronary artery disease Status: Acute Assessment and plan: He is now status post stenting, doing well on current medical therapy. He is to be discharged home and will follow-up with Dr. Aguirre. Discharge medications were discussed with the hospitalist service. Current Visit: Yes (2) Essential (primary) hypertension Status: Chronic Current Visit: Yes (3) Hyperlipidemia LDL goal <70 Status: Chronic Current Visit: Yes (4) Tachycardia Status: Resolved Current Visit: Yes Cardiology - PN: Subj Interval history: The patient was seen earlier today, I discussed this case with Dr. Gay. Evening was uneventful. He was less short of breath. He still has a sensation of some chest discomfort with deep breaths, coughing. No other complaints. CT scan of the chest has now been performed which ruled out pulmonary embolism. Exam (Progress Note) - Constitutional Vitals: Period Temp Pulse Resp BP Sys/Aggarwal Pulse Ox Last 24 Hr 97.6 F-98.9 F 93-105 17-20 114-129/61-70 98-100 Exam: General appearance: normal weight, no acute distress - Head Head exam: Present: normal inspection, normocephalic, atraumatic. Absent: hematoma, laceration - Eye Eye exam: Present: EOMI. Absent: conjunctival injection, nystagmus, periorbital swelling, scleral icterus, laceration to eyelids Pupils: Present: PERRL. Absent: constricted, dilated, fixed, irregular, unequal - ENT ENT exam: Present: normal exam, normal external ear exam - Neck Neck exam: Present: normal inspection. Absent: lymphadenopathy, meningismus, tenderness, thyromegaly - Respiratory Respiratory exam: Present: clear to auscultation bilaterally. Absent: accessory muscle use, chest wall tenderness - Cardiovascular Cardiovascular exam: Present: regular rate and rhythm. Absent: carotid bruit, gallop, JVD, rubs - GI/Abdominal GI/Abdominal exam: Present: normal bowel sounds, soft. Absent: distended, firm , guarding, hernia, mass, tenderness, rebound. - Extremities Exam Extremities exam: Present: normal inspection, normal capillary refill. Absent: calf tenderness, edema - Back Exam Back exam: Present: normal inspection. Absent: muscle spasm, vertebral tenderness - Neurological Exam Neurological exam: Present: alert, oriented X3, grossly intact without resting or intention tremor - Psychiatric Psychiatric exam: Present: normal affect, normal mood - Skin Skin exam: Present: normal color, warm, dry, intact. Absent: cyanosis, diaphoretic, rash, urticaria Result/EKG - Labs CBC & BMP: 03/03/17 05:40 03/03/17 05:40 Lab Results: I have reviewed the past 24 hour labs Labs: Laboratory Results - last 24 hr 03/03/17 03/03/17 03/03/17 05:40 05:40 05:40 WBC 6.3 RBC 3.47 L Hgb 9.9 L Hct 29.2 L MCV 84.1 L MCH 29 MCHC 33.9 RDW 12.5 Plt Count 335 MPV 9.4 L Neut % (Auto) 62.5 Lymph % (Auto) 21.7 N[place] % (Auto) 13.0 H Eos % (Auto) 1.6 Baso % (Auto) 0.6 Neut # (Auto) 3.9 Lymph # (Auto) 1.4 Nance # (Auto) 0.8 Eos # (Auto) 0.1 Baso # (Auto) 0.0 Immature Gran % 0.6 Nucleated RBC % 0.0 Immature Gran # 0.04 Nucleated RBCs # 0.00 Sodium 137 Potassium 3.7 Chloride 96 L Carbon Dioxide 31 Anion Gap 13.7 BUN 15 Creatinine 1.20 GFR Calculation 120 BUN/Creatinine Ratio 12.00 Glucose 106 Calculated Osmolality 273.8 Calcium 8.7 Magnesium 2.2 B-Natriuretic Peptide 141 H Specialty Discharge - Follow Up or Referrals Follow up with: Hussain Aguirre MD [Physician] - 03/12/17 1:10 pm (Follow up with Dr. Aguirre in 2 weeks with BMP w/ Mg. Be there at 12:50 p.m. for lab work.)
== END 2017-03-03 14:38 | disposition home or self-care (01) | DRG 229 ==
LOC: N.ED 06:14 → N.EDINP 09:15 → N.TELEN 11:49 → N.CC 17:51 → N.TELES 02-26 11:21
PROVIDERS: ADMIT Internal Medicine; ATTEND Internal Medicine
PROC: CLCCHCL (ICD-10-PCS; 2017-02-24 15:45)

== ENCOUNTER 2017-04-11 20:09 | Observation (INO) ==
[2017-04-11] MEDS ORDERED: ASPIRIN 325 MG TABLET PO STA ×2 (21:49→23:25)
--- NOTE | 2017-04-11 21:53 | EKG Report ---
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
[2017-04-11] MEDS ORDERED: ASPIRIN 325 MG TABLET ONE (22:01)
[2017-04-11 22:02] LABS: Basophils % 0.2 % (0.0-0.8); Eosinophils # 0.1 10*3/uL (0.0-0.87); Eosinophils % 1.4 % (0.00-10.9); Hematocrit 32.2 VOL% (42.0-52.0); Hemoglobin 11.2 GM/DL (14.0-18.0); Immature Granulocytes % 0.2 %; Immature Granulocytes Absolute 0.01 #; Lymphocytes # 1.6 10*3/uL (1.4-4.0); Lymphocytes % 37.4 % (21.2-54.2); Mean Corpuscular HGB Conc 34.8 GM/DL (32-36); Mean Corpuscular Hemoglobin 29 PG (27-34); Mean Corpuscular Volume 82.4 FL (87-102); Mean Platelet Volume 9.4 FL (9.6-12.0); Monocytes # 0.5 10*3/uL (0.11-0.8); Monocytes % 11.1 % (1.7-12.7); Neutrophils # 2.1 10*3/uL (1.4-7.4); Neutrophils % 49.7 % (38.7-73.9); Platelet Count 275 T/CUMM (130-400); Red Blood Count 3.91 MC/CUMM (3.8-5.5); Red Cell Distribution Width 13.7 % (9.3-17.3); White Blood Count 4.2 T/CUMM (4-12)
[2017-04-11 22:10] LABS: Calcium 8.6 MG/DL (8.5-10.1); Osmolality,Calculated 279.4 MOS/KG (273-304)
--- NOTE | 2017-04-11 22:32 | XRay Report ---
Exam: XR chest 1V portable Indication: Midline chest pain Comparison study: Prior chest radiograph 03/02/2017 Findings: There has been complete interval complete clearing of the basilar interstitial opacity seen previously. The heart, mediastinum and bony structures are stable from prior. There is no focal consolidation, pneumothorax or pleural effusion identified. Impression: No acute cardiopulmonary process. Clearing of basilar opacity seen previously. Otherwise, no significant change. PROCEDURE INTERPRETED AT [facility] DEPARTMENT OF RADIOLOGY Final Report Signed by: James Sosa
[2017-04-11] MEDS ORDERED: POTASSIUM CHLORIDE 20 MEQ PACK PO STA (23:17)
[2017-04-11] MEDS ORDERED: POTASSIUM CHLORIDE 20 MEQ PACK ONE (23:26)
[2017-04-11] MEDS ORDERED: MORPHINE 2 MG/1 ML SYRINGE IV STA (23:36)
[2017-04-11] MEDS ORDERED: MAGNESIUM SULF RIDER 4 GM in PREMIX 1 EACH IV PRN (23:39)
[2017-04-11] MEDS ORDERED: ZALEPLON 5 MG CAPSULE PO PRN (23:39)
[2017-04-11] MEDS ORDERED: ONDANSETRON 4 MG/2 ML VIAL IV PRN (23:39)
[2017-04-11] MEDS ORDERED: MAGNESIUM SULF RIDER 2 GM in PREMIX 1 EACH IV PRN (23:39)
--- NOTE | 2017-04-11 23:47 | Emergency Department Note ---
IRosaura Kasabria, am scribing for, and in the presence of, Gris Hudson MD 21:25. ITristan Leanne, MD, personally performed the services described in this documentation, ascribed by Tyron Kaplan in my presence, and it is both accurate and complete 347 . Arrival - Arrival Chief Complaint: Chest Pain Stated Complaint: chest pains/nausea/dizziness/TA in February ED Nursing Triage Note: Patient to triage with c/o CP/SOB for about 1 week along with dizziness. Patient states it feels like "electricity going through his chest and now the pain is sharp" Patient recently had PR in February of this year with stent placement. Patient sees Dr Aguirre. ekg done in triage. Mode of Arrival: Ambulatory Limitations: No Limitations Source: Patient - History of Present Illness HPI Narrative: This is a 41 y/o black male presenting to the ED with c/o SOB and chest pain that onset one week ago. He describes the pain as sharp and it felt like "electricity was going though his chest". Pt has a PMHx of PR with stent placement in February 2017. He is a pt of Dr. Aguirre. He is stable and answering questions appropriately. He denies fever, chills, vomiting, diarrhea, abdominal pain, back pain, radiating pain, diaphoresis, vision change, and VALDOVINOS. Consistency: constant Severity: moderate Allergies/Adverse Reactions: Allergies Allergy/AdvReac Type Severity Reaction Status Date / Time No Known Allergies Allergy Unverified 04/11/17 20:20 Home Medications: Home Medications Medication Instructions Recorded Confirmed Type Carvedilol [Coreg] 25 mg PO BID #60 tablet 03/03/17 04/11/17 Rx Nitroglycerin Sl Tab [Nitrostat] 0.4 mg SL Q5M PRN #50 tablet 03/03/17 04/11/17 Rx Sacubitril/Valsartan [Entresto 49 0.5 tablet PO BID #60 tablet 03/03/17 Rx mg-51 mg Tablet] Ticagrelor [Brilinta] 90 mg PO BID #60 tablet 03/03/17 04/11/17 Rx Aspirin EC Tab 81 mg PO 1400 04/11/17 04/11/17 History Furosemide Tab [Lasix Tab] 40 mg PO BID 04/11/17 04/11/17 History Potassium Chloride [K-Tab ER] 10 meq PO QPM 04/11/17 04/11/17 History Rivaroxaban [Xarelto] 10 mg PO 1400 04/11/17 04/11/17 History Rosuvastatin [Crestor] 40 mg PO QPM 04/11/17 04/11/17 History Review of System - Review of System 12 point system: reviewed and no additional remarkable complaints except as stated - Review of System Constitutional: Absent: chills, fever, weakness Eyes: Absent: vision change Head/Ears/Nose/Throat: Absent: earache, nasal drainage Respiratory: Absent: cough, respiratory distress, wheezing Cardiovascular: Present: chest pain, dyspnea on exertion Gastrointestinal: Absent: abdominal pain, nausea, vomiting, diarrhea Genitourinary male: Absent: dysuria Musculoskeletal: Absent: arm pain, back pain, neck pain Skin: Absent: rash Neurological: Absent: headache, weakness, numbness, confusion, abnormal gait, vertigo Psychiatric: Absent: anxiety Endocrine: Absent: fatigue Hematological/Lymphatic: Absent: easy bleeding Allergic/Immunologic: Absent: facial swelling Medical,Surgical,& Family Hx - Medical History Cardio: History of: Hypertension, [place] (February 2017) No history of: CAD Neurology: No history of: Seizures Endocrine: History of: Dyslipidemia - Family History Family History: Reports;: Family Heart Disease, Family Hypertension - Social History Smoking Status: Never smoker Frequency of Alcohol Use: None Type of Drug Use: None Exam Vital Signs: Vital Signs Temperature 98.1 F 04/11/17 20:16 Pulse Rate 101 H 04/11/17 20:16 Respiratory Rate 16 04/11/17 20:58 Blood Pressure 120/68 04/11/17 20:16 O2 Sat by Pulse Oximetry 98 04/11/17 20:16 - General General appearance: alert, in no apparent distress - Head Head exam: Present: atraumatic, normocephalic, normal inspection - Eye Eye exam: Present: normal appearance, PERRL, EOMI - ENT ENT exam: Present: normal exam, normal oropharynx, mucous membranes moist, TM's normal bilaterally, normal external ear exam - Neck Neck exam: Present: normal inspection, full ROM, trachea midline. Absent: tenderness - Chest Chest inspection: Present: symmetric chest wall rise, tenderness (palpable chest wall tenderness ). Absent: normal inspection - Respiratory Respiratory exam: Present: normal lung sounds bilaterally - Cardiovascular Cardiovascular exam: Present: regular rate, normal rhythm, normal heart sounds - Abdominal Exam Abdominal exam: Present: soft, normal bowel sounds. Absent: distention, tenderness - Extremities Exam Extremities exam: Present: normal inspection, full ROM, normal capillary refill. Absent: tenderness, pedal edema, calf tenderness - Back Exam Back exam: Present: normal inspection, full ROM. Absent: tenderness - Neurological Exam Neurological exam: Present: alert, oriented X3, CN II-XII intact, normal gait, reflexes normal. Absent: motor sensory deficit - Psychiatric Psychiatric exam: Present: normal affect, normal mood. Absent: anxious - Skin Skin exam: Present: warm, dry, intact, normal color. Absent: rash, diaphoresis Results - Labs CBC & BMP: 04/11/17 21:01 04/11/17 21:01 Disposition Clinical Impression: Chest pain, CAD (coronary artery disease) Case discussed with: patient Additional Instructions: admit to cardiology
[2017-04-12] MEDS: POTASSIUM CHLORIDE RIDER 10 MEQ in PREMIX 1 EACH IV PRN ×5 (02:34→09:48)
--- NOTE | 2017-04-12 07:11 | EKG Report ---
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
--- NOTE | 2017-04-12 08:04 | EKG Report ---
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
[2017-04-12] MEDS: PANTOPRAZOLE 40 MG TABLET PO SCH (09:49)
[2017-04-12] MEDS ORDERED: NITROGLYCERIN SL 0.4 MG TABLET SL PRN (12:20)
--- NOTE | 2017-04-12 12:26 | Cardiology History & Physical ---
Assessment and Plan (1) Dyspnea Status: Acute Assessment and plan: His chief complaint is dyspnea. His chest x-ray shows no significant abnormalities and his lung exam is clear. I am actually wondering if this may be related to the [facility] area about a number of patients who have dyspnea from this medication. I am going to change him to Effient at this time. He has ruled out for myocardial infarction. I do not see any evidence of acute coronary syndrome. I am going to check an echocardiogram to evaluate his left ventricular systolic function. Current Visit: Yes (2) Ischemic cardiomyopathy Status: Acute Assessment and plan: Recheck echo in the morning. Current Visit: Yes (3) History of placement of stent in LAD coronary artery Status: Acute Assessment and plan: He does have some chest pains but they are very atypical and his cardiac enzymes are negative. I do not think he is having an acute coronary syndrome or ischemia. Current Visit: Yes (4) CAD (coronary artery disease) Status: Acute Current Visit: Yes (5) Chest pain Status: Acute Assessment and plan: Chest pain is sharp/electric and atypical. His enzymes are negative. He has no acute EKG changes. Current Visit: Yes (6) Hypertension Status: Acute Assessment and plan: This appears to be well controlled on his current medication. Current Visit: No (7) Hypokalemia Status: Acute Assessment and plan: I am going to supplement his potassium. He might benefit from spironolactone. Current Visit: No (8) Hyperlipidemia LDL goal <70 Status: Chronic Current Visit: No (9) Anxiety Status: Acute Assessment and plan: Patient seems quite anxious. If this does not improve we could consider using something like Lexapro. Current Visit: Yes History of Present Illness History of present illness: Mr. Winter is a 41 year old male who has a history of myocardial infarction in February 2017. At that time he was found to have ectatic coronary arteries and had a large thrombus burden in the mid to distal LAD and had stenting of his mid LAD with a 5.0 x 18 mm ultra stent which was dilated to 5.6 mm. He was subsequently placed on aspirin, low-dose Xarelto and Brilinta. Patient came to the hospital stating for the last couple of weeks he has just been more short of breath. The symptoms are moderate to severe. There are no specific exacerbating or relieving factors. He has numerous other complaints like chronic fatigue and sleepiness. He says that he sleeps all day. His symptoms sound like sleep apnea but he tells me he was tested for this a couple of months ago and did not have sleep apnea. He tells me that occasionally has some electric shocklike pains going through his chest. There are no specific exacerbating or relieving factors and these do not really sound like angina. He also has some occasional paresthesias in his legs which are random in occurrence. The patient seemed moderately to severely anxious. He reports having occasional palpitations and that once his heart rate got up to 110 bpm which worried him. He denies any syncope or presyncope. He has no orthopnea, PND, or peripheral edema. He has no fever, chills, or cough. He has no nausea , vomiting, or other gastrointestinal complaints at this time. Since admission he has had multiple sets of cardiac enzymes which are negative. His EKG does not show any acute changes. His d-dimer was negative. His CBC shows his hemoglobin has improved since his previous hospitalization. His potassium was quite low at the time of this admission. Home Medications Medication Instructions Recorded Confirmed Type Carvedilol [Coreg] 25 mg PO BID #60 tablet 03/03/17 04/11/17 Rx Nitroglycerin Sl Tab [Nitrostat] 0.4 mg SL Q5M PRN #50 tablet 03/03/17 04/11/17 Rx Sacubitril/Valsartan [Entresto 49 0.5 tablet PO BID #60 tablet 03/03/17 Rx mg-51 mg Tablet] Ticagrelor [Brilinta] 90 mg PO BID #60 tablet 03/03/17 04/11/17 Rx Aspirin EC Tab 81 mg PO 1400 04/11/17 04/11/17 History Furosemide Tab [Lasix Tab] 40 mg PO BID 04/11/17 04/11/17 History Potassium Chloride [K-Tab ER] 10 meq PO QPM 04/11/17 04/11/17 History Rivaroxaban [Xarelto] 10 mg PO 1400 04/11/17 04/11/17 History Rosuvastatin [Crestor] 40 mg PO QPM 04/11/17 04/11/17 History Allergies Allergy/AdvReac Type Severity Reaction Status Date / Time No Known Allergies Allergy Unverified 04/11/17 20:20 12 point system: reviewed and no additional remarkable complaints except as stated Medical,Surgical,& Family Hx - Medical History Cardio: History of: Hypertension, [place] (February 2017) No history of: CAD Neurology: No history of: Seizures Endocrine: History of: Dyslipidemia - Surgical History Thoracic Surgeries: Patient denies;: Lobectomy Abdominal Surgeries: Patient denies: Abdominal Surgery - Family History Family History: Reports;: Family Heart Disease, Family Hypertension - Social History Smoking Status: Never smoker Frequency of Alcohol Use: None Type of Drug Use: None Cardiology Physical Exam - Constitutional Vitals: Vital Signs Temp Pulse Resp BP Pulse Ox 98.2 F 83 18 114/66 96 04/12/17 08:00 04/12/17 08:00 04/12/17 08:00 04/12/17 08:00 04/12/17 08:00 Intake and Output 04/11/17 04/12/17 04/12/17 23:59 07:59 15:59 Intake Total 420 / 420 200 / 200 Balance 420 / 420 200 / 200 Intake: IV 200 / 200 200 / 200 Potassium Chloride Trent 200 / 200 200 / 200 10 Meq/100 ml In Premix 1 Each @ 100 mls/hr IV . PER PROTOCOL PRN Rx#: [id number] Oral 220 / 220 Other: Voiding Method Toilet # Voids 1 Weight 110.677 kg 107.955 kg Patient Weight 04/12/17 23:59 Weight 107.955 kg Exam: General: Appears well developed, well nourished, no apparent distress HEENT: Normocephalic, atraumatic Neck: Supple Neck, Midline Trachea, No Bruit, No JVD Cardiac: Regular rhythm, No Murmur, no gallop, no rub Lungs: Clear to auscultation, No Wheeze, Rales, Rhonchi Neuro: Cranial Nerve 2-12 Intact, Motor Function Grossly Intact Abdomen: Soft, Active Bowel Sounds, No Masses, No Pulsations/Bruits Skin: Normal color, no rash Extremities: No Clubbing, No Cyanosis, No Edema, Normal Upper Extr. Pulses Musculoskeletal: No acute abnormality noted Psychiatric: The patient does not appear to be anxious or depressed Result/EKG - Labs CBC & BMP: 04/11/17 21:01 04/11/17 21:01 Lab Results: I have reviewed the past 24 hour labs Labs: Laboratory Results - last 24 hr 04/11/17 04/11/17 04/11/17 21:01 21:01 21:01 WBC RBC Hgb Hct MCV MCH MCHC RDW Plt Count MPV Neut % (Auto) Lymph % (Auto) Lander % (Auto) Eos % (Auto) Baso % (Auto) Neut # (Auto) Lymph # (Auto) Lander # (Auto) Eos # (Auto) Baso # (Auto) Immature Gran % Nucleated RBC % Immature Gran # Nucleated RBCs # D-Dimer, Quantitative <= 0.5 Sodium 140 Potassium 3.0 L Chloride 104 Carbon Dioxide 30 Anion Gap 9.0 BUN 12 Creatinine 1.50 H GFR Calculation 92 BUN/Creatinine Ratio 8.00 Glucose 118 H Calculated Osmolality 279.4 Calcium 8.6 Troponin I B-Natriuretic Peptide 56 04/11/17 04/11/17 04/12/17 21:01 21:01 03:53 WBC 4.2 RBC 3.91 Hgb 11.2 L Hct 32.2 L MCV 82.4 L MCH 29 MCHC 34.8 RDW 13.7 Plt Count 275 MPV 9.4 L Neut % (Auto) 49.7 Lymph % (Auto) 37.4 Lander % (Auto) 11.1 Eos % (Auto) 1.4 Baso % (Auto) 0.2 Neut # (Auto) 2.1 Lymph # (Auto) 1.6 Lander # (Auto) 0.5 Eos # (Auto) 0.1 Baso # (Auto) 0.0 Immature Gran % 0.2 Nucleated RBC % 0.0 Immature Gran # 0.01 Nucleated RBCs # 0.00 D-Dimer, Quantitative Sodium Potassium Chloride Carbon Dioxide Anion Gap BUN Creatinine GFR Calculation BUN/Creatinine Ratio Glucose Calculated Osmolality Calcium Troponin I < 0.015 < 0.015 B-Natriuretic Peptide 04/12/17 06:24 WBC RBC Hgb Hct MCV MCH MCHC RDW Plt Count MPV Neut % (Auto) Lymph % (Auto) Lander % (Auto) Eos % (Auto) Baso % (Auto) Neut # (Auto) Lymph # (Auto) Lander # (Auto) Eos # (Auto) Baso # (Auto) Immature Gran % Nucleated RBC % Immature Gran # Nucleated RBCs # D-Dimer, Quantitative Sodium Potassium Chloride Carbon Dioxide Anion Gap BUN Creatinine GFR Calculation BUN/Creatinine Ratio Glucose Calculated Osmolality Calcium Troponin I 0.020 B-Natriuretic Peptide - EKG EKG results: interpreted by me Quality Measures - Stroke Symptom Onset Unknown: No
[2017-04-12] MEDS ORDERED: POTASSIUM CHLORIDE 20 MEQ TABLET PO ONE (12:31)
[2017-04-12] MEDS ORDERED: POTASSIUM CHLORIDE RIDER 10 MEQ in PREMIX 1 EACH IV SCH (13:00)
[2017-04-12] MEDS: CARVEDILOL 25 MG TABLET PO SCH ×2 (13:44→21:25)
[2017-04-12] MEDS: ASPIRIN EC 81 MG TABLET PO SCH (13:45)
[2017-04-12] MEDS: POTASSIUM CHLORIDE 20 MEQ TABLET PO SCH ×2 (13:45→21:25)
[2017-04-12] MEDS: FUROSEMIDE 40 MG TABLET PO SCH ×2 (13:45→21:25)
[2017-04-12] MEDS: RIVAROXABAN 10 MG TABLET PO SCH (13:45)
[2017-04-12] MEDS: PRASUGREL 10 MG TABLET PO SCH (13:45)
[2017-04-12] MEDS: SACUBITRIL/VALSARTAN 49-51 MG TABLET PO SCH ×2 (13:46→21:21)
[2017-04-12] MEDS: ROSUVASTATIN 20 MG TABLET PO SCH (18:24)
[2017-04-12] MEDS ORDERED: POTASSIUM CHLORIDE 10 MEQ TABLET PO SCH (19:00)
[2017-04-13 05:49] LABS: Calcium 8.3 MG/DL (8.5-10.1); Magnesium 2.1 MG/DL (1.8-2.4); Osmolality,Calculated 279.3 MOS/KG (273-304); Potassium 3.4 MMOL/L (3.5-5.1)
[2017-04-13] MEDS: POTASSIUM CHLORIDE 20 MEQ TABLET PO SCH ×2 (09:12→21:59)
[2017-04-13] MEDS: FUROSEMIDE 40 MG TABLET PO SCH ×2 (09:12→21:57)
[2017-04-13] MEDS: PRASUGREL 10 MG TABLET PO SCH (09:12)
[2017-04-13] MEDS: SACUBITRIL/VALSARTAN 49-51 MG TABLET PO SCH ×2 (09:13→21:56)
[2017-04-13] MEDS: PANTOPRAZOLE 40 MG TABLET PO SCH (09:13)
[2017-04-13] MEDS: CARVEDILOL 25 MG TABLET PO SCH ×2 (09:13→21:57)
[2017-04-13] MEDS: POTASSIUM CHLORIDE RIDER 10 MEQ in PREMIX 1 EACH IV PRN (12:49)
[2017-04-13 13:43] LABS: Free T4 (Free Thyroxine) 0.99 NG/DL (0.76-1.46); Thyroid Stimulating Hormone 1.53 uIU/ml (0.358-3.74)
--- NOTE | 2017-04-13 14:26 | Cardiology Progress Note ---
<Violeta Devine - Last Filed: 04/13/17 13:53> Assessment and Plan - Time spent with patient Time spent with patient: Greater than 30 minutes (1) Atypical chest pain Status: Acute Assessment and plan: See plan of care listed below. Current Visit: Yes (2) Anxiety Status: Acute Assessment and plan: See plan of care listed below. Current Visit: Yes (3) CAD (coronary artery disease) Status: Chronic Assessment and plan: See plan of care listed below. Current Visit: Yes (4) History of placement of stent in LAD coronary artery Status: Chronic Assessment and plan: See plan of care listed below. Current Visit: Yes (5) Ischemic cardiomyopathy Status: Chronic Assessment and plan: See plan of care listed below. Current Visit: Yes (6) Hypertension Status: Chronic Assessment and plan: See plan of care listed below. Current Visit: No (7) Hypokalemia Status: Acute Assessment and plan: See plan of care listed below. Current Visit: No (8) Hyperlipidemia LDL goal <70 Status: Chronic Assessment and plan: See plan of care listed below. Current Visit: No (9) Shortness of breath Status: Acute Assessment and plan: See plan of care listed below. Current Visit: Yes (10) Fatigue Status: Acute Assessment and plan: See plan of care listed below. Current Visit: Yes (11) Daytime sleepiness Status: Acute Assessment and plan: See plan of care listed below. Current Visit: Yes (12) Snoring Status: Chronic Assessment and plan: See plan of care listed below. Current Visit: Yes (13) GERD (gastroesophageal reflux disease) Status: Chronic Assessment and plan: See plan of care listed below. 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 Aguirre SUMMARY: Mr. Winter is a 41 year old male who has a history of myocardial infarction in February 2017. At that time he was found to have had a large thrombus burden in the mid to distal LAD and had stenting of his mid LAD with a 5.0 x 18 mm ultra stent which was dilated to 5.6 mm. He was subsequently placed on aspirin, low-dose Xarelto and Brilinta. Patient has a past medical history of coronary artery disease, hypertension, dyslipidemia and ischemic cardiomyopathy (most recent ejection fraction 40%). Patient came to the hospital stating for the last couple of weeks he has just been more short of breath and a two-week history of chest pain. The symptoms are moderate to severe. Patient has been admitted under cardiology service and housed in the telemetry unit. April UPDATE : Patient was seen and examined on the telemetry unit. He continues to complain of left-sided chest pain. He reports that it is worsened when taking deep breaths and when coughing. Upon exam, patient's chest pain is reproducible to light palpation. Cardiac biomarkers have been negative. EKG is unchanged. Echocardiogram was performed this morning, results are pending. Patient also reports shortness of breath and fatigue. Patient confirms daytime sleepiness and snoring at night. Patient and his both agree that he may possibly have sleep apnea. I will consult Dr. Collins at this time. Vital signs are stable. Telemetry has been reviewed. He is currently in normal sinus rhythm with heart rates in the 90s without any overt arrhythmias or ectopy noted. Will anticipate discharge tomorrow or Thursday. Assessment/plan: 1. ATYPICAL CHEST PAIN - Patient's chest pain appears to be musculoskeletal in nature as it is reproducible to light palpation. Cardiac biomarkers have been negative and EKG is unchanged. At this point we will treat the patient's chest wall pain with Tylenol, tramadol and gabapentin. 2. CORONARY ARTERY DISEASE - Appears to be clinically stable at present. Patient's chest pain appears to be musculoskeletal in nature. Will continue current plan of care with beta-alison, lipid-lowering agent and dual antiplatelet therapy. 3. ISCHEMIC CARDIOMYOPATHY - Clinically stable at present. Most recent echocardiogram revealed ejection fraction of 40%. Patient had echocardiogram this morning. Results pending. Will continue patient's current medication regimen and add low-dose Aldactone as patient has significant hypokalemia. 4. SHORTNESS OF BREATH - Brilinta has been changed to Effient. Patient continues to be mildly short of breath. Will continue to monitor this in hopes that this will resolve once Brilinta is out of patient system. 5. FATIGUE - Patient reports feeling fatigued over the past several weeks. Unsure of etiology. It is possible that this could be side effects of patient' s medications. I have ordered TSH and T4. Echocardiogram is pending. Patient is mildly anemic with H&H is 11.2 and 32.2. This could possibly be contributing to patient's fatigue. No overt bleeding noted. Will check stool for occult blood and monitor with daily CBC. 6. HYPERTENSION - This is clinically stable at present. Continue current plan of care. 7. DYSLIPIDEMIA - Continue current plan of care with lipid lowering agent. 8. GERD - Ccontinue current plan of care with PPI. 9. ANXIETY - Added low dose Lexapro today. 10. HYPOKALEMIA - Low-dose Aldactone has been added. Daily BMP. 11. DAYTIME SLEEPINESS AND SNORING - I will consult Dr. Collins. FURTHER PLAN AND ADDENDUM TO FOLLOW PER DR. GELLER. Exam (Progress Note) - Constitutional Vitals: Period Temp Pulse Resp BP Sys/Aggarwal Pulse Ox Last 24 Hr 96.1 F-98.3 F 63-97 18-20 102-113/62-73 92-98 Exam: General: Appears well with no apparent distress. Pleasant and cooperative. Appears comfortable. HEENT: PERRL, normocephalic, atraumatic. Mucous membranes moist. No jaundice noted. Conjunctiva moist and clear, sclerae anicteric Neck: No JVD/HJR, no thyromegaly or lymphadenopathy noted. No carotid bruit appreciated Cardiac: Regular rate and rhythm. No murmur rub or gallop. Chest wall: Tender to light palpation. Lungs: Clear to auscultation without accessory muscle use to assist the respiratory pattern. Not requiring oxygen. Abdomen: Soft, bowel sounds normoactive. Nontender and nondistended. No abdominal bruit or thrill noted. No masses noted. Extremities: No clubbing, cyanosis noted. No edema noted. Upper extremity pulses 2+. Lower extremity pulses 2+. Capillary refill less than 3 seconds. Skin: No unusual lesions or rashes. No skin breakdown appreciated. Neuro: Awake, alert and oriented 3. Moves all extremities well without hemiparesis or paralysis. No essential tremor is appreciated. Result/EKG - Labs CBC & BMP: 04/11/17 21:01 04/13/17 04:24 Lab Results: I have reviewed the past 24 hour labs Labs: Laboratory Results - last 24 hr 04/13/17 04/13/17 04:24 Unknown Sodium 141 Potassium 3.4 L Chloride 105 Carbon Dioxide 27 Anion Gap 12.4 BUN 11 Creatinine 1.00 GFR Calculation 149 BUN/Creatinine Ratio 11.00 Glucose 105 Calculated Osmolality 279.3 Calcium 8.3 L Magnesium 2.1 Free T4 0.99 TSH 3rd Generation 1.530 Quality Measures - Stroke Symptom Onset Unknown: No <Fredis Geller - Last Filed: 04/13/17 21:53> Assessment and Plan (1) Chest pain Status: Acute Assessment and plan: The patient has chest pain which seems to be chest wall pain. With the chest pain is recent MS he became very anxious and came in promptly. He has been tired, snores, and has excessive daytime somnolence. Has nausea. Potassium has been low. He has been forgetful. Is not on atorvastatin. Plan/recommendation: Consult Dr. Collins to evaluate for sleep apnea-patient agrees-he had some screening study that was negative for maybe it would explain his problems, may that test has a significant false negative rate His fatigue could also be depression will try as generic Lexapro He does seem to have some anxiety and almost panic attacks with the pain- probably since he had an MS-we will try Klonopin plus the escitalopram Nausea-we will try a proton pump inhibitor We will treat chest wall pain-tramadol, Tylenol, gabapentin Echo is pending we will see if improved LV function and LV thrombus status Continue Xarelto because of apical thrombus post anterior MS Further decisions depending on his response to therapy. The above was discussed with the patient and his . They voiced understanding and agree with the plan. Current Visit: Yes (2) LV (left ventricular) mural thrombus following MS Status: Acute Current Visit: Yes (3) Panic attacks Status: Acute Current Visit: Yes (4) Chest wall pain Status: Acute Current Visit: Yes (5) Anxiety Status: Acute Current Visit: Yes (6) Daytime sleepiness Status: Acute Current Visit: Yes (7) Dyspnea Status: Acute Current Visit: Yes (8) Fatigue Status: Acute Current Visit: Yes (9) Shortness of breath Status: Acute Current Visit: Yes (10) CAD (coronary artery disease) Status: Chronic Current Visit: Yes (11) History of placement of stent in LAD coronary artery Status: Chronic Current Visit: Yes (12) Ischemic cardiomyopathy Status: Chronic Current Visit: Yes (13) Coronary artery disease Status: Acute Current Visit: No (14) Hypokalemia Status: Acute Current Visit: No Exam (Progress Note) - Constitutional Vitals: Period Temp Pulse Resp BP Sys/Aggarwal Pulse Ox Last 24 Hr 96.1 F-98.3 F 63-102 18-20 102-113/55-73 97-98 Result/EKG - Labs CBC & BMP: 04/11/17 21:01 04/13/17 04:24 Labs: Laboratory Results - last 24 hr 04/13/17 04/13/17 04:24 Unknown Sodium 141 Potassium 3.4 L Chloride 105 Carbon Dioxide 27 Anion Gap 12.4 BUN 11 Creatinine 1.00 GFR Calculation 149 BUN/Creatinine Ratio 11.00 Glucose 105 Calculated Osmolality 279.3 Calcium 8.3 L Magnesium 2.1 Free T4 0.99 TSH 3rd Generation 1.530
[2017-04-13] MEDS: ASPIRIN EC 81 MG TABLET PO SCH (15:02)
[2017-04-13] MEDS: SPIRONOLACTONE 25 MG TABLET PO SCH (15:03)
[2017-04-13] MEDS: ACETAMINOPHEN 325 MG TABLET PO SCH ×2 (15:03→21:57)
[2017-04-13] MEDS: RIVAROXABAN 10 MG TABLET PO SCH (15:03)
[2017-04-13] MEDS: GABAPENTIN 100 MG CAPSULE PO SCH ×2 (15:03→21:58)
[2017-04-13] MEDS ORDERED: POTASSIUM CHLORIDE 20 MEQ TABLET PO ONE (15:23)
[2017-04-13] MEDS ORDERED: LACTULOSE 20 GM/30 ML UDCUP PO PRN (17:06)
--- NOTE | 2017-04-13 17:33 | ECHO Report ---
Dhara Winter Exam Date: 04/12/2017 14:26 Referring Physician: Technologist: Dinorah Melara RDCS Age: 41 Ht (in): 75 Wt (lb): 238 Gender: M Exam Location: [facility] Echo Indications: Chest pain, unspecified, Dyspnea, unspecified, Ischemic cardiomyopathy, Essential (primary) hypertension, CAD with previous stent, Hypokalemia, Hyperlipidemia, unspecified BP: 126 / 69 HR: 96 Rhythm: Sinus Technical Quality: Good IMPRESSIONS Left ventricular ejection fraction is estimated at 50 %. Apical Akinesis; possible layered mural thrombus at apex; . Trace to mild mitral valve regurgitation. Trace tricuspid valve regurgitation. Tricuspid regurgitation velocities suggest a PAP of 38 mmHg. Trace pulmonary valve regurgitation. Normal pericardium without effusion. MEASUREMENTS (Male / Female) Normal Values 2D ECHO LV Diastolic Diameter PLAX 5.2 cm 4.2 - 5.9 / 3.9 - 5.3 cm LV Systolic Diameter PLAX 3.7 cm LV Fractional Shortening PLAX 28.6 % IVS Diastolic Thickness 0.9 cm 0.6 - 1.0 / 0.6 - 0.9 cm LVPW Diastolic Thickness 0.9 cm 0.6 - 1.0 / 0.6 - 0.9 cm RV Internal Dim ED PLAX 2.8 cm Aortic Root Diameter 3.4 cm LA Systolic Diameter LX 4.0 cm 3.0 - 4.0 / 2.7 - 3.8 cm DOPPLER TR Peak Velocity 265.0 cm/s TR Peak Gradient 28.1 mmHg FINDINGS Left Ventricle Normal left ventricular cavity size. Normal left ventricular wall thickness. Left ventricular ejection fraction is estimated at 50 %. apical Akinesis; possible layered mural thrombus at apex; Right Ventricle The right ventricle is normal in size and function. Right Atrium The right atrium is normal in size. Left Atrium The left atrium is normal in size. Mitral Valve Morphologically normal mitral valve. Trace to mild mitral valve regurgitation. Aortic Valve Morphologically normal aortic valve without significant sclerosis or stenosis. There is no aortic regurgitation. Tricuspid Valve Morphologically normal tricuspid valve. Trace tricuspid valve regurgitation. Tricuspid regurgitation velocities suggest a PAP of 38 mmHg. Pulmonic Valve Morphologically normal pulmonic valve. Trace pulmonary valve regurgitation. Pericardium Normal pericardium without effusion. Aorta Normal ascending aorta dimension. Fredis Geller MD (Electronically Signed) Final Date: 13 April 2017 17:32
[2017-04-13] MEDS: ROSUVASTATIN 20 MG TABLET PO SCH (18:31)
[2017-04-13] MEDS ORDERED: ESCITALOPRAM 10 MG TABLET PO SCH (21:00)
[2017-04-13] MEDS: traMADol 50 MG TABLET PO SCH (21:57)
[2017-04-13] MEDS: clonazePAM 0.5 MG TABLET PO SCH (22:05)
[2017-04-14 05:23] LABS: Basophils % 0.2 % (0.0-0.8); Eosinophils # 0.1 10*3/uL (0.0-0.87); Eosinophils % 1.6 % (0.00-10.9); Hematocrit 31.8 VOL% (42.0-52.0); Hemoglobin 11.1 GM/DL (14.0-18.0); Immature Granulocytes % 0.2 %; Immature Granulocytes Absolute 0.01 #; Lymphocytes # 1.8 10*3/uL (1.4-4.0); Lymphocytes % 42.3 % (21.2-54.2); Mean Corpuscular HGB Conc 34.9 GM/DL (32-36); Mean Corpuscular Hemoglobin 29 PG (27-34); Mean Corpuscular Volume 83.7 FL (87-102); Mean Platelet Volume 8.9 FL (9.6-12.0); Monocytes # 0.5 10*3/uL (0.11-0.8); Monocytes % 10.6 % (1.7-12.7); Neutrophils % 45.1 % (38.7-73.9); Platelet Count 240 T/CUMM (130-400); Red Cell Distribution Width 13.9 % (9.3-17.3); White Blood Count 4.4 T/CUMM (4-12)
[2017-04-14 05:55] LABS: Calcium 8.9 MG/DL (8.5-10.1); Magnesium 2.1 MG/DL (1.8-2.4); Osmolality,Calculated 280.3 MOS/KG (273-304); Potassium 3.9 MMOL/L (3.5-5.1)
[2017-04-14] MEDS: CARVEDILOL 25 MG TABLET PO SCH (08:27)
[2017-04-14] MEDS: SPIRONOLACTONE 25 MG TABLET PO SCH (08:27)
[2017-04-14] MEDS: GABAPENTIN 100 MG CAPSULE PO SCH ×2 (08:30→14:59)
[2017-04-14] MEDS: PRASUGREL 10 MG TABLET PO SCH (08:30)
[2017-04-14] MEDS: traMADol 50 MG TABLET PO SCH (08:31)
[2017-04-14] MEDS: PANTOPRAZOLE 40 MG TABLET PO SCH (08:31)
[2017-04-14] MEDS: POTASSIUM CHLORIDE 20 MEQ TABLET PO SCH (08:31)
[2017-04-14] MEDS: clonazePAM 0.5 MG TABLET PO SCH (08:34)
[2017-04-14] MEDS: ACETAMINOPHEN 325 MG TABLET PO SCH (08:45)
[2017-04-14] MEDS: SACUBITRIL/VALSARTAN 49-51 MG TABLET PO SCH (08:46)
[2017-04-14] MEDS ORDERED: FUROSEMIDE 20 MG TABLET PO SCH (09:00)
[2017-04-14 11:27] VITALS: BP 93/54
--- NOTE | 2017-04-14 12:20 | Discharge Summary ---
Hospital Course - Hospital Course Hospital Course: Pipe Bender: Dr. Aguirre SUMMARY: Mr. Winter is a 41 year old male who has a history of myocardial infarction in February 2017. At that time he was found to have had a large thrombus burden in the mid to distal LAD and had stenting of his mid LAD with a 5.0 x 18 mm ultra stent which was dilated to 5.6 mm. He was subsequently placed on aspirin, low-dose Xarelto and Brilinta. Patient has a past medical history of coronary artery disease, hypertension, dyslipidemia and ischemic cardiomyopathy (echocardiogram this admission revealed improved ejection fraction, improved from 40% to 50%). Patient came to the hospital stating for the last couple of weeks he has just been more short of breath and a two-week history of chest pain. The symptoms are moderate to severe. Patient was admitted under cardiology's service and housed in the telemetry unit. Patient' s chest pain was extremely atypical and consistent with musculoskeletal in nature. It was reproducible to light palpation and worsened with deep breaths and coughing. Cardiac biomarkers negative throughout patient's hospital stay and EKG was unchanged from previous admissions. Echocardiogram was performed which revealed improved LV function, ejection fraction improved from 40% to 50% . Patient's chest wall pain was treated with tramadol, Tylenol and gabapentin. Patient will be discharged on all 3 of these medications. Patient will be given a written prescription for tramadol 50 mg twice daily [address] Fredis Geller. Gabapentin and Tylenol will be Eprescribed to patient's pharmacy of choice. Patient's Brilinta was changed to Effient as the Brilinta was thought to be causing patient's dyspnea. Patient remains slightly dyspneic. However, suspect that this will resolve once Brilinta is completely out of patient system. During patient's hospital stay he was also noted to be hypokalemic. Aldactone was then added to patient's medication regimen. This morning, patient's potassium is stable at 3.9. At this point, after discussing with Dr. Geller patient's Lasix and potassium will be discontinued as patient's cardiomyopathy has improved and patient's blood pressure is borderline low with a systolic blood pressure ranging from 90-110. Patient has been instructed to hold Aldactone and Entresto for systolic blood pressure less than 110 at dose. He has also been instructed to hold Coreg if systolic blood pressure is less than 100 at dose. He and his both verbalized understanding. Patient also had complaints of fatigue and daytime sleepiness. Thyroid function was normal. I will give patient an outpatient appointment to see Dr. Collins as patient may have obstructive sleep apnea. He and his both confirm snoring and excessive daytime sleepiness. Patient was quite anxious throughout his hospitalization. Subsequently, Lexapro was initiated. He will be given a prescription for this at discharge. This morning, patient was seen on the telemetry unit along with Dr. Geller. Labs are reviewed and overall unremarkable. Vital signs are stable. Patient is anxious for discharge home today. Having felt that he has not maximal medical therapy, he will be discharged home in stable condition. Patient currently has follow-up point with Dr. Aguirre April 16. He will keep this appointment. At that appointment he will have the following labs obtained: CBC, BMP, magnesium and EKG. Patient will also be given appointment with Dr. Collins for further workup of possible sleep apnea. Discharge instructions and discharge medications have been reviewed with the patient and his . They both verbalized understanding. - Time spent with patient Time with patient DS: Greater than 30 minutes Diagnosis - Discharge Diagnosis (1) Atypical chest pain Status: Acute (2) Anxiety Status: Acute (3) CAD (coronary artery disease) Status: Chronic (4) History of placement of stent in LAD coronary artery Status: Chronic (5) Ischemic cardiomyopathy Status: Chronic (6) Hypertension Status: Chronic (7) Hypokalemia Status: Resolved (8) Hyperlipidemia LDL goal <70 Status: Chronic (9) Shortness of breath Status: Acute (10) Fatigue Status: Acute (11) Daytime sleepiness Status: Acute (12) Snoring Status: Chronic (13) GERD (gastroesophageal reflux disease) Status: Chronic Specialty Discharge - Follow Up or Referrals Follow up with: Cris Collins MD [Physician] - 1 Week Hussain Aguirre MD [Physician] - (Patient already has appointment with Dr. Aguirre April 16. He will keep this appointment. Please make sure the patient has CBC, BMP, magnesium and EKG at this appointment.) Discharge Plan - Discharge Data Disposition: Disch To Home/Self Care Condition at Discharge: Stable Discharge Diet: heart healthy Activity: resume usual activities as tolerated Hygiene: no restrictions Weight Bearing at Discharge: weight bear as tolerated Driving: not until seen by doctor Contact your physician if you experience:: fever over 101, Difficulty voiding, Redness or swelling, Nausea/Vomiting, Shortness of breath, Bleeding, pain uncontrolled by pain medications - Discharge Medications New Acetaminophen Tab [Tylenol Tab] 325 mg PO BID #14 tablet Escitalopram [Lexapro] 10 mg PO BEDTIME #30 tablet Pantoprazole Tab [Protonix Tab] 40 mg PO DAILY #30 tablet Prasugrel [Effient] 10 mg PO DAILY #30 tablet traMADol TAB [Ultram] 50 mg PO BID tablet Gabapentin Cap/Tab [Neurontin Cap/Tab] 100 mg PO TID #90 capsule Spironolactone [Aldactone] 6.25 mg PO DAILY #30 tablet Continue Nitroglycerin Sl Tab [Nitrostat] 0.4 mg SL Q5M PRN #50 tablet PRN Reason: Chest Pain Aspirin EC Tab 81 mg PO 1400 Rosuvastatin [Crestor] 40 mg PO QPM Rivaroxaban [Xarelto] 10 mg PO 1400 Carvedilol [Coreg] 25 mg PO BID #60 tablet Sacubitril/Valsartan [Entresto 49 mg-51 mg Tablet] 0.5 tablet PO BID #60 tablet Discontinued Ticagrelor [Brilinta] 90 mg PO BID #60 tablet Furosemide Tab [Lasix Tab] 40 mg PO BID Potassium Chloride [K-Tab ER] 10 meq PO QPM - Follow Up or Referral Follow Up: Cris Collins MD [Physician] - 1 Week Hussain Aguirre MD [Physician] - (Patient already has appointment with Dr. Aguirre April 16. He will keep this appointment. Please make sure the patient has CBC, BMP, magnesium and EKG at this point appear) - Forms/Instructions Exam - Constitutional Vitals: Period Temp Pulse Resp BP Sys/Aggarwal Pulse Ox Last 24 Hr 97.5 F-98.4 F 68-102 18-20 93-166/47-99 95-98 Exam: General: Appears well with no apparent distress. Pleasant and cooperative. Appears comfortable. HEENT: PERRL, normocephalic, atraumatic. Mucous membranes moist. No jaundice noted. Conjunctiva moist and clear, sclerae anicteric Neck: No JVD/HJR, no thyromegaly or lymphadenopathy noted. No carotid bruit appreciated Cardiac: Regular rate and rhythm. No murmur rub or gallop. Chest wall: Tender to light palpation. Lungs: Clear to auscultation without accessory muscle use to assist the respiratory pattern. Not requiring oxygen. Abdomen: Soft, bowel sounds normoactive. Nontender and nondistended. No abdominal bruit or thrill noted. No masses noted. Extremities: No clubbing, cyanosis noted. No edema noted. Upper extremity pulses 2+. Lower extremity pulses 2+. Capillary refill less than 3 seconds. Skin: No unusual lesions or rashes. No skin breakdown appreciated. Neuro: Awake, alert and oriented 3. Moves all extremities well without hemiparesis or paralysis. No essential tremor is appreciated. Discharge Results Procedures and tests throughout hospitalization: Pending Orders 04/13/17 19:36 Occult Blood, Stool Routine 04/15/17 04:00 BMP w/ Mg [Basic Metabolic Panel w/Mg] IN AM CBC [Comp Blood Count Auto Diff] IN AM 04/16/17 04:00 BMP w/ Mg [Basic Metabolic Panel w/Mg] IN AM CBC [Comp Blood Count Auto Diff] IN AM 04/17/17 04:00 BMP w/ Mg [Basic Metabolic Panel w/Mg] IN AM CBC [Comp Blood Count Auto Diff] IN AM Labs on day of discharge: Labs from last 24 hours 04/14/17 04/14/17 04/13/17 05:08 05:08 Unknown WBC 4.4 RBC 3.80 Hgb 11.1 L Hct 31.8 L MCV 83.7 L MCH 29 MCHC 34.9 RDW 13.9 Plt Count 240 MPV 8.9 L Neut % (Auto) 45.1 Lymph % (Auto) 42.3 [place] % (Auto) 10.6 Eos % (Auto) 1.6 Baso % (Auto) 0.2 Neut # (Auto) 2.0 Lymph # (Auto) 1.8 [place] # (Auto) 0.5 Eos # (Auto) 0.1 Baso # (Auto) 0.0 Immature Gran % 0.2 Nucleated RBC % 0.0 Immature Gran # 0.01 Nucleated RBCs # 0.00 Sodium 141 Potassium 3.9 Chloride 105 Carbon Dioxide 25 Anion Gap 14.9 BUN 12 Creatinine 1.00 GFR Calculation 149 BUN/Creatinine Ratio 12.00 Glucose 99 Calculated Osmolality 280.3 Calcium 8.9 Magnesium 2.1 Free T4 0.99 TSH 3rd Generation 1.530 - Imaging and Cardiology Procedure: Ultrasound: report reviewed by me DS: Provider Date of admission: 04/11/17 23:44 Primary care physician: . No PCP Attending physician on admission: Gurpreet Tadeo MD Consults: 04/12/17 13:41 Consult to Case Mgmt/Social Srvs [CONS] Routine Reason for Case Mgmt/Social Srvs: Discharge Planning Consult Comment: please see if pt qualifies for help paying with meds 04/13/17 14:32 Consult to Physician [CONS] Routine Comment: Daytime sleepiness and snoring. Consulting Provider: Cris Collins Consult Notification Comment: ORDER PUT IN FOR CONSULT TO SLEEP CENTER FOR DR. COLLINS 04/13/17 14:48 Consult to Sleep Center [CONS] Routine Reason for Sleep Center: Sleep Center Physician Consult Comment: DAYTIME SLEEPINESS AND SNORING Discharging clinician: Violeta Devine NP Expected date of discharge: 04/14/17
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
[2017-04-14] MEDS: ASPIRIN EC 81 MG TABLET PO SCH (14:59)
[2017-04-14] MEDS: RIVAROXABAN 10 MG TABLET PO SCH (14:59)
== END 2017-04-14 15:45 | disposition home or self-care (01) ==
LOC: N.EDINP 20:09 → N.ED 20:09 → N.TELES 04-12 00:04
PROVIDERS: ADMIT Internal Medicine Cardiovascular Disease; ATTEND Internal Medicine Cardiovascular Disease

== ENCOUNTER 2017-04-21 18:58 | Observation (INO) ==
[2017-04-21] MEDS ORDERED: SODIUM CHLORIDE 0.9% 1,000 ML IV STA (19:32)
[2017-04-21] MEDS ORDERED: MORPHINE 2 MG/1 ML SYRINGE IV STA (19:32)
[2017-04-21] MEDS ORDERED: ONDANSETRON 4 MG/2 ML VIAL IV STA (19:32)
[2017-04-21] MEDS ORDERED: ASPIRIN 325 MG TABLET PO STA (19:32)
[2017-04-21] MEDS ORDERED: NITROGLYCERIN 2% OINT 1 INCH/GM PACK TOP STA (19:32)
--- NOTE | 2017-04-21 19:37 | Emergency Department Note ---
Rowena Muniz Hilary, am scribing for, and in the presence of, Daron Lora MD 19:34. Guido Muniz Robert M, MD, personally performed the services described in this documentation, ascribed by Brittany Guaman in my presence, and it is both accurate and complete 936 . Arrival - Arrival Chief Complaint: Chest Pain Stated Complaint: chest pain/SOb/leg pain/numbness in legs ED Nursing Triage Note: Patient to triage with c/o CP that started yesterday around 1899. Patient discribes the pain and stabbing and has been constant today. c/o pain left side of chest and down right side with nausea as well. Mode of Arrival: Wheelchair Limitations: No Limitations Source: Patient, RN Notes Reviewed - History of Present Illness HPI Narrative: Pt is a 41 y/o black male presenting to the ED with c/o chest pain which onset 3 days ago but worsened today. Pt reports that the he is having severe, stabbing chest pain in the center of his chest. Today he was walking up the stairs when his chest pain started, he got weak, SOB, his legs went numb and he fell down the steps. No other complaints or problems stated in the ED. Onset (ago): day(s) Consistency: intermittent Severity: severe Severity scale (1-10): 5 Quality: stabbing Allergies/Adverse Reactions: Allergies Allergy/AdvReac Type Severity Reaction Status Date / Time No Known Allergies Allergy Unverified 04/21/17 19:08 Home Medications: Home Medications Medication Instructions Recorded Confirmed Type Nitroglycerin Sl Tab [Nitrostat] 0.4 mg SL Q5M PRN #50 tablet 03/03/17 04/21/17 Rx Aspirin EC Tab 81 mg PO 1400 04/11/17 04/21/17 History Rivaroxaban [Xarelto] 10 mg PO 1400 04/11/17 04/21/17 History Rosuvastatin [Crestor] 40 mg PO QPM 04/11/17 04/21/17 History Carvedilol [Coreg] 25 mg PO BID #60 tablet 04/14/17 04/21/17 Rx Escitalopram [Lexapro] 10 mg PO BEDTIME #30 tablet 04/14/17 04/21/17 Rx Gabapentin Cap/Tab [Neurontin 100 mg PO TID #90 capsule 04/14/17 04/21/17 Rx Cap/Tab] Pantoprazole Tab [Protonix Tab] 40 mg PO DAILY #30 tablet 04/14/17 04/21/17 Rx Prasugrel [Effient] 10 mg PO DAILY #30 tablet 04/14/17 04/21/17 Rx Sacubitril/Valsartan [Entresto 49 0.5 tablet PO BID #60 tablet 04/14/17 Rx mg-51 mg Tablet] Spironolactone [Aldactone] 6.25 mg PO DAILY #30 tablet 04/14/17 04/21/17 Rx traMADol TAB [Ultram] 50 mg PO BID tablet 04/14/17 04/21/17 Rx Review of System - Review of System 12 point system: reviewed and no additional remarkable complaints except as stated - Review of System Constitutional: Present: weakness. Absent: fever Respiratory: Present: respiratory distress (SOB) Cardiovascular: Present: chest pain Neurological: Present: weakness, numbness (legs went numb) Medical,Surgical,& Family Hx - Medical History Cardio: History of: Hypertension, [place] (February 2017) No history of: CAD Neurology: No history of: Seizures Endocrine: History of: Dyslipidemia - Surgical History Thoracic Surgeries: Patient denies;: Lobectomy Abdominal Surgeries: Patient denies: Abdominal Surgery - Family History Family History: Reports;: Family Heart Disease, Family Hypertension - Social History Smoking Status: Never smoker Frequency of Alcohol Use: None Type of Drug Use: None Exam Vital Signs: Vital Signs Temperature 97.7 F 04/21/17 19:01 Pulse Rate 83 04/21/17 19:01 Respiratory Rate 20 04/21/17 19:01 Blood Pressure 125/73 04/21/17 19:01 O2 Sat by Pulse Oximetry 98 04/21/17 19:01 - General General appearance: alert, in no apparent distress - Head Head exam: Present: atraumatic, normocephalic - Eye Eye exam: Present: normal appearance, PERRL, EOMI - ENT ENT exam: Present: mucous membranes moist, TM's normal bilaterally. Absent: mucous membranes dry - Neck Neck exam: Present: full ROM, trachea midline. Absent: tenderness - Chest Chest inspection: Present: symmetric chest wall rise. Absent: tenderness - Respiratory Respiratory exam: Present: normal lung sounds bilaterally. Absent: respiratory distress - Cardiovascular Cardiovascular exam: Present: regular rate, normal rhythm, normal heart sounds. Absent: murmur, rubs, gallop - Abdominal Exam Abdominal exam: Present: soft, normal bowel sounds. Absent: distention, tenderness - Extremities Exam Extremities exam: Present: full ROM. Absent: tenderness - Back Exam Back exam: Present: full ROM. Absent: tenderness - Neurological Exam Neurological exam: Present: alert, oriented X3, CN II-XII intact. Absent: motor sensory deficit - Psychiatric Psychiatric exam: Present: normal affect, normal mood - Skin Skin exam: Present: warm, dry, intact, normal color. Absent: rash Course - Reevaluation(s) Reevaluation #1: First EKG obtained at 1907 demonstrated residual changes unchanged from a previous EKG approximately 7 days old. A second EKG obtained at [address] elevations in the septal leads. Dr. Martinez was called at 1940 hrs. Rivet Hammer Machine Operator has been called. Time: 19:41 Results - Labs CBC & BMP: 04/21/17 19:24 Lab Results: I have reviewed the patients labs - EKG EKG results: interpreted by JENNIFER, sinus rhythm (Old septal infarct again noted with heart rate 79 bpm), no acute changes (04/12/2017) Disposition Clinical Impression: Acute septal myocardial infarction, Coronary artery disease, Hypertension Case discussed with: patient, patient's family Disposition: Still a Patient Condition: Stable Time of Disposition: 19:46
[2017-04-21] MEDS ORDERED: NITROGLYCERIN 2% OINT 1 INCH/GM PACK TOP ONE (19:41)
[2017-04-21] MEDS ORDERED: MORPHINE 2 MG/1 ML SYRINGE ONE (19:41)
[2017-04-21] MEDS ORDERED: ONDANSETRON 4 MG/2 ML VIAL ONE (19:41)
[2017-04-21] MEDS ORDERED: ASPIRIN 325 MG TABLET ONE (19:41)
[2017-04-21 19:42] LABS: Basophils % 0.2 % (0.0-0.8); Eosinophils # 0.1 10*3/uL (0.0-0.87); Eosinophils % 1.1 % (0.00-10.9); Hematocrit 33.9 VOL% (42.0-52.0); Lymphocytes # 1.8 10*3/uL (1.4-4.0); Lymphocytes % 39.1 % (21.2-54.2); Mean Corpuscular HGB Conc 35.4 GM/DL (32-36); Mean Corpuscular Hemoglobin 29 PG (27-34); Mean Corpuscular Volume 82.9 FL (87-102); Mean Platelet Volume 9.4 FL (9.6-12.0); Monocytes # 0.5 10*3/uL (0.11-0.8); Monocytes % 10.2 % (1.7-12.7); Neutrophils # 2.2 10*3/uL (1.4-7.4); Neutrophils % 49.4 % (38.7-73.9); Platelet Count 230 T/CUMM (130-400); Red Blood Count 4.09 MC/CUMM (3.8-5.5); White Blood Count 4.5 T/CUMM (4-12)
[2017-04-21] MEDS ORDERED: TICAGRELOR 90 MG TABLET PO STA (19:42)
[2017-04-21] MEDS ORDERED: TICAGRELOR 90 MG TABLET ONE (19:45)
--- NOTE | 2017-04-21 19:47 | XRay Report ---
Exam: XR chest 1V portable Date: 04/21/2017 7:32 PM Indication: Chest pain Comparison: 04/11/2017 Technical: AP portable Findings: External cardiac leads are present. The heart, lungs, mediastinum bony structures are intact Impression: 1. No acute cardiopulmonary pathology PROCEDURE INTERPRETED AT [facility] DEPARTMENT OF RADIOLOGY Final Report Signed by: Dr. Shola Francisco
[2017-04-21 19:52] LABS: INR 1.2; PT Patient Result 12.8 SECS
[2017-04-21 20:01] LABS: Bilirubin,Total 0.7 MG/DL (0.2-1.0); Calcium 8.9 MG/DL (8.5-10.1); Magnesium 2.1 MG/DL (1.8-2.4); Osmolality,Calculated 275.5 MOS/KG (273-304); Potassium 3.9 MMOL/L (3.5-5.1); Total Protein 7.6 G/DL (6.4-8.3)
[2017-04-21 20:03] LABS: Troponin I Only < 0.015 NG/ML (0.00-0.045)
[2017-04-21] MEDS ORDERED: MIDAZOLAM 2 MG/2 ML VIAL ONE (20:10)
[2017-04-21] MEDS ORDERED: LIDOCAINE 1% 20 ML VIAL ONE (20:10)
[2017-04-21] MEDS ORDERED: fentaNYL 100 MCG/2 ML VIAL ONE (20:11)
[2017-04-21] MEDS ORDERED: TIROFIBAN 5,000 MCG/100 ML PREMIX IV ONE (20:31)
--- NOTE | 2017-04-21 20:51 | Operative Note ---
Date of procedure: 04/21/17 Procedure Preformed: Left heart catheterization with selective right left coronary angiograms. Surgeon / Physician: Collin Martinez Veterans Employment Representative: Gama Layne Post-op diagnosis: other (No ST segment elevation microinfarction.) Findings: Patient totally occluded mid LAD stent. This was the finding though the time his stent was placed 02/24/2017. Specimens: none sent Estimated blood loss: minimal Condition: stable Anesthesia: local, conscious sedation Disposition: floor
[2017-04-21] MEDS ORDERED: ONDANSETRON 4 MG/2 ML VIAL IV PRN (20:53)
[2017-04-21] MEDS ORDERED: ACETAMINOPHEN 325 MG TABLET PO PRN (20:53)
[2017-04-21] MEDS ORDERED: NITROGLYCERIN SL 0.4 MG TABLET SL PRN ×2 (20:53→20:58)
[2017-04-21] MEDS ORDERED: SODIUM CHLORIDE 0.9% 1,000 ML IV SCH (21:00)
--- NOTE | 2017-04-21 21:01 | Cardiology History & Physical ---
Assessment and Plan (1) Leg weakness, bilateral Status: Acute Assessment and plan: This is something he has had over the last couple weeks may be 3 weeks. This is episodic. This is his main problem which he came to the emergency room. Current Visit: Yes (2) CAD (coronary artery disease) Status: Chronic Assessment and plan: Recent I almost 2 months ago conclusion LAD that would not reperfuses and after stenting and thrombectomy. Current Visit: Yes (3) Hypertension Status: Chronic Assessment and plan: Continue his present medications and monitor treat accordingly. Current Visit: Yes (4) Atypical chest pain Status: Chronic Assessment and plan: He has had some chronic recurrent episodes this is catheterization and myocardial infarction 2 months ago. Current Visit: No (5) Ischemic cardiomyopathy Status: Chronic Assessment and plan: Clinically this is stable. Current Visit: No History of Present Illness Chief complaint: Acute episode of leg weakness and chest pain History of present illness: Mr. Winter is a 41 year old male who on February 24 2017 presented with chest pain and what was prior anterior septal myocardial infarction. He underwent cardiac catheterization by Dr. Gregg Parks. The total occluded LAD. The patient underwent intervention and AngioJet thrombectomy and stent placement. The patient never regained any flow in the LAD beyond this area even with a stent. He had high pressure large balloon inflation in the stent. He had very ectatic vessels. Again the patient never had reperfusion. The patient presented recently few weeks ago with just nonspecific shortness of breath nothing change the patient was discharged. The patient was last few weeks she has had some episodes of his legs is suddenly feeling weak. No other local focal symptoms. He had this happen again this evening and had a little chest pain that was made worse with deep breath motion and came to the emergency room with these complaints. He is being evaluated after being there for a little bit in getting a second EKG it was felt that he may be having ST segment elevation microinfarction with his chest pain. Dr. Lora called me in the [employer] Software Verification Engineer and activated the blood bank laboratory technologist for STEMI. On my arrival here to the catheterization laboratory and evaluate the patient's old chart and indeed the patient did have some ST elevation with Q waves in V2 and V3. This though is actually improved since his last ECG approximately 2 weeks ago. The patient was not having any significant acute chest pain on his arrival into the catheterization laboratory. Review of his films he did have a totally occluded LAD. We proceeded with catheterization coronary angiography. We do not carry out left heart catheterization. His LAD remained totally occluded. We did attempt to cross the stent but was unable to do so. It was felt that this was not reperfusable and since it is present from February no further evaluation and treatment was indicated. This was not the cause of his symptomatology and that patient indeed was not having a STEMI. The patient is now being admitted post catheterization mainly because his leg weakness that is not ongoing at this time. We will have neurology see the patient. He needs no further cardiac evaluation at this time but will continue his treatment. Again he needs to be indurated this patient has not had a STEMI this admission. Post catheterization he is stable. Home Medications Medication Instructions Recorded Confirmed Type Nitroglycerin Sl Tab [Nitrostat] 0.4 mg SL Q5M PRN #50 tablet 03/03/17 04/21/17 Rx Aspirin EC Tab 81 mg PO 1400 04/11/17 04/21/17 History Rivaroxaban [Xarelto] 10 mg PO 1400 04/11/17 04/21/17 History Rosuvastatin [Crestor] 40 mg PO QPM 04/11/17 04/21/17 History Carvedilol [Coreg] 25 mg PO BID #60 tablet 04/14/17 04/21/17 Rx Escitalopram [Lexapro] 10 mg PO BEDTIME #30 tablet 04/14/17 04/21/17 Rx Gabapentin Cap/Tab [Neurontin 100 mg PO TID #90 capsule 04/14/17 04/21/17 Rx Cap/Tab] Pantoprazole Tab [Protonix Tab] 40 mg PO DAILY #30 tablet 04/14/17 04/21/17 Rx Prasugrel [Effient] 10 mg PO DAILY #30 tablet 04/14/17 04/21/17 Rx Sacubitril/Valsartan [Entresto 49 0.5 tablet PO BID #60 tablet 04/14/17 Rx mg-51 mg Tablet] Spironolactone [Aldactone] 6.25 mg PO DAILY #30 tablet 04/14/17 04/21/17 Rx traMADol TAB [Ultram] 50 mg PO BID tablet 04/14/17 04/21/17 Rx Allergies Allergy/AdvReac Type Severity Reaction Status Date / Time No Known Allergies Allergy Unverified 04/21/17 19:08 Review of systems: Constitutional: Denies anorexia, chills, fatigue, fever, frequent falls, night sweats, weight gain, weight loss Eyes: Denies visual changes or loss of vision Ears: Denies decreased hearing, vertigo Nose, mouth and throat: Denies dysphagia, epistaxis, headaches, neck pain, tongue swelling, Neck: Denies thyromegaly or masses. No stiffness. Cardiovascular: as per HPI Respiratory: Denies cough, dyspnea, hemoptysis, dyspnea on exertion, wheezing, snoring. Has had some intermittent dyspnea. Gastrointestinal: Denies abdominal pain, constipation, dyspepsia, dysphagia, hematemesis, hematochezia, melena, nausea, vomiting Genitourinary: Denies dysuria, hematuria, nocturia Musculoskeletal: Denies arthralgias, joint swelling, muscle weakness, myalgias Neurological: denies abnormal gait, abnormal speech, confusion, convulsions, frequent falls, headaches, memory loss, syncope. He has complained of just some episodes of bilateral leg weakness. Psychiatric: Denies anxiety, confusion, depression Endocrine: Denies cold intolerance, fatigue, heat intolerance Hematologic/Lymphatic: Denies easy bleeding, easy bruising Dermatologic: Denies Rash, itching, shingles Medical,Surgical,& Family Hx - Medical History Cardio: History of: Hypertension, [place] (February 2017) No history of: CAD Neurology: No history of: Seizures Endocrine: History of: Dyslipidemia - Surgical History Thoracic Surgeries: Patient denies;: Lobectomy Abdominal Surgeries: Patient denies: Abdominal Surgery - Family History Family History: Reports;: Family Heart Disease, Family Hypertension - Social History Smoking Status: Never smoker Frequency of Alcohol Use: None Type of Drug Use: None Cardiology Physical Exam - Constitutional Vitals: Vital Signs Temp Pulse Resp BP Pulse Ox 97.7 F 83 18 125/73 98 04/21/17 19:01 04/21/17 19:01 04/21/17 19:30 04/21/17 19:01 04/21/17 19:01 Intake and Output 04/21/17 04/21/17 04/21/17 07:59 15:59 23:59 Other: Weight 107.955 kg Patient Weight 04/21/17 23:59 Weight 107.955 kg Exam: General appearance: normal weight, no acute distress Head exam: normal inspection, atraumatic Eye exam: Pupils are equal and reactive. EOMI. There is no trauma. Ear exam: Anatomically normal. Normal auditory acuity to conversation. Oral exam: No significant oral lesions. Neck exam: normal inspection no JVD. No carotid bruit. Trachea is in midline. Respiratory exam: clear to auscultation bilaterally posteriorly and anteriorly with good air movement. No rales, rhonchi or wheezes. Cardiovascular exam: regular rate and rhythm, no murmur or gallop or rub. He did have somewhat of a split S2. No precordial lift. No bruits over the major arteries. Chest wall/torso: Anatomically normal. No tenderness, deformity Peripheral Pulses: 2+ throughout. GI/Abdominal exam: normal bowel sounds, soft and nontender, no abdominal bruits or pulsatile masses. Musculoskeletal/Extremities exam: normal inspection without edema or cyanosis. No deformities or trauma. Neurological exam: alert, oriented X3. There is no gross neurologic deficits. Psychiatric exam: normal affect, normal mood. Cognitive function is grossly intact. Skin exam: normal color, warm. No rashes or other skin lesions. Result/EKG - Labs CBC & BMP: 04/21/17 19:24 04/21/17 19:24 Lab Results: I have reviewed the past 24 hour labs Labs: Laboratory Results - last 24 hr 04/21/17 04/21/17 04/21/17 19:24 19:24 19:24 WBC 4.5 RBC 4.09 Hgb 12.0 L Hct 33.9 L MCV 82.9 L MCH 29 MCHC 35.4 RDW 14.0 Plt Count 230 MPV 9.4 L Neut % (Auto) 49.4 Lymph % (Auto) 39.1 [place] % (Auto) 10.2 Eos % (Auto) 1.1 Baso % (Auto) 0.2 Neut # (Auto) 2.2 Lymph # (Auto) 1.8 [place] # (Auto) 0.5 Eos # (Auto) 0.1 Baso # (Auto) 0.0 Immature Gran % 0.0 Nucleated RBC % 0.0 Immature Gran # 0.00 Nucleated RBCs # 0.00 INR 1.2 PT Patient/Control Mix 12.8 Sodium 139 Potassium 3.9 Chloride 105 Carbon Dioxide 26 Anion Gap 11.9 BUN 11 Creatinine 1.00 GFR Calculation 148 BUN/Creatinine Ratio 11.00 Glucose 97 Calculated Osmolality 275.5 Calcium 8.9 Magnesium 2.1 Total Bilirubin 0.70 AST 22 ALT 57 Alkaline Phosphatase 61 Total Creatine Kinase CK-MB (CK-2) Troponin I Total Protein 7.6 Albumin 4.0 Globulin 3.6 H Albumin/Globulin Ratio 1.1 Lipase 131.0 04/21/17 19:24 WBC RBC Hgb Hct MCV MCH MCHC RDW Plt Count MPV Neut % (Auto) Lymph % (Auto) [place] % (Auto) Eos % (Auto) Baso % (Auto) Neut # (Auto) Lymph # (Auto) [place] # (Auto) Eos # (Auto) Baso # (Auto) Immature Gran % Nucleated RBC % Immature Gran # Nucleated RBCs # INR PT Patient/Control Mix Sodium Potassium Chloride Carbon Dioxide Anion Gap BUN Creatinine GFR Calculation BUN/Creatinine Ratio Glucose Calculated Osmolality Calcium Magnesium Total Bilirubin AST ALT Alkaline Phosphatase Total Creatine Kinase 125 CK-MB (CK-2) < 1.0 Troponin I < 0.015 Total Protein Albumin Globulin Albumin/Globulin Ratio Lipase - Impressions Impressions: ECG with sinus rhythm with Q waves across the anterior leads of V1 and V2 with ST segment elevation when compared to prior ECGs is unchanged and is not overall improved ECG. Quality Measures - VTE Contraindication to Pharmacological VTE Prophylaxis: High Risk of Bleeding
[2017-04-21] MEDS ORDERED: ENOXAPARIN 60 MG/0.6 ML SYRINGE ONE (21:03)
--- NOTE | 2017-04-21 21:25 | Cardiac Catheterization ---
Date of Procedure:: 04/21/17 Pre-op Diagnosis: Per ER, Dr. Lora ST segment elevation myocardial infarction. Post-op diagnosis: other (No ST segment elevation myocardial infarction) Procedure: LEFT HEART CATHERIZATION History: 41-year-old man who had total occlusion of his LAD in anterior septal myocardial infarction almost 2 months ago. The patient's LAD was not opened even though they did stent this and balloon. Thrombectomy was carried out as well but still felt to open the LAD. The patient was admitted couple weeks ago with his shortness of breath nonspecific symptoms but not felt to be cardiac. The patient presented complaining tonight of having some episodes over the last 2-3 weeks of leg weakness. In the process he also complained of all chest pain. His ECG revealed what they thought in the emergency room was an ST segment elevation myocardial infarction. Emergency room then called a STEMI alert cardiac catheterization laboratory myself was called in. Pre-Op diagnosis: ST segment elevation myocardial infarction. Postoperative diagnosis: Patient is not having ST segment elevation myocardial infarction. Chronic occlusion of the mid LAD. Procedures: 1. Selective left and right coronary angiograms. 2. Attempted crossing the LAD stent. 3. Right common femoral artery angiogram with Angio-Seal hemostasis. Equipment: 6 Prydeinig arterial sheath, 6 Prydeinig diagnostic JL4 and JR4 diagnostic catheters. A 6 Prydeinig Angio-Seal hemostatic device. For attempted crossing the LAD mid stenosis we used a EBU 4 guide catheter, pro-water flex guidewire and a PT choice extra support guidewire. Medications: Preoperative Benadryl and Valium given by mouth. Lidocaine 1% local anesthesia 19.5 mls administered by myself. Intraprocedure patient received Versed 2 mgs IVP, fentanyl 100 mcg IVP, Lovenox 32 mg IV push, Aggrastat bolus 54 mL, Aggrastat infusion at 19.4 mL/hour. Should be noted Aggrastat was stopped the end of the procedure. Complications: None immediate. Contrast: Omnipaque 109 milliliters. Description of procedure: After informed consent the patient was given preoperative medications and brought to the catheterization laboratory where their right groin was prepped and draped in usual fashion. IV sedation was then obtained after which local anesthesia was administered at the right groin over the right common femoral artery. Using modified Seldinger technique the right common femoral artery was cannulated with 6 Prydeinig arterial sheath placed. The JL4 diagnostic coronary catheter was then advanced through the sheath in a retrograde approach and used to cannulate the left coronary artery of which angiograms were obtained in multiple projections. This catheter was then removed. The JR 4 diagnostic coronary catheter was then advanced retrograde through the aorta and used to cannulate the right coronary artery of which angiograms were obtained in multiple projections. Angiograms were then reviewed. We attempted to cross the occluded LAD using EBU 4 guide catheter, a pro-water flex PTCA guidewire and a PT choice export guidewire. We were unable to cross the mid LAD total occlusion. The wires may have been actually hanging up on the stent struts. As noted this vessel is totally occluded after first attempt almost 2 months ago. We abandoned this procedure. It was not felt this patient was having ST segment elevation myocardial infarction based on his history ECGs and the fact this is a chronic total occlusion now. The EBU catheter was pulled back into the sheath where a right common femoral artery angiogram was obtained with Angio-Seal hemostasis then obtained of this vessel. There were no immediate complications. Hemodynamic data: AO root 101/66, mean 79. Left ventricular angiogram: Not done Left main coronary artery angiogram: Left main coronary artery is large without stenosis or disease. Bifurcates LAD and circumflex arteries. Left anterior descending artery angiogram: The LAD is a large ectatic vessel proximally. The mid vessel is totally occluded. There is a stent present. This is a total occlusion that was previously present and attempted dilation and stent placement. This attempt failed almost 2 months ago and this is a total occlusion. Circumflex artery angiogram: Circumflex artery proximally is large. The first obtuse marginal branch is a large vessel. The second obtuse marginal branch is a large branch as well. There is diffuse luminal irregularities in circumflex artery proper and obtuse marginal branches but no occlusive disease. Right coronary artery angiogram: The RCA is a large ectatic somewhat tortuous vessel that is dominant. PDA is medium large size vessel with posterior lateral branches being medium size. The AV node artery is small vessel having is takeoff the distal RCA. The RCA is dominant. Most significant stenosis is less than 20%. Implanted PCI of LAD: This is as described above. The occluded stent area was attempted to open since the patient had had some chest pain. This of course felt as noted above. Unable to get a wire to cross the area. Right common femoral artery angiogram: Right comfort is widely patent with successful Angio-Seal hemostasis. Impression: 1. LV gram and pressures not measured. 2. RCA is large dominant ectatic vessel with less than 20% stenosis. 3. Left main coronary is widely patent. 4. Circumflex artery is a large vessel widely patent with luminal irregularities. 5. LAD proximal is ectatic vessel and total mid occlusion that is chronic. 6. There is no new disease in comparison to prior catheterization. 7. It should be noted this patient is not having a ST segment elevationa myocardial infarction. Discussion: In review of our findings as well as previous findings the LAD occlusion is chronic. It is not had any reestablish the flow in the fact that we could not cross the area would indicate such. The patient is is not having an ST segment elevation myocardial infarction. We will treat this patient medically. We will have neurology see the patient regard to his leg weakness that is intermittent. This may can be worked up as an outpatient. We will continue his risk factor modifications. Implants: None Anesthesia: local, moderate conscious sedation Surgeon / Physician: Collin Martinez Estimated blood loss: minimal Specimens: none sent Condition: stable Disposition: floor - Discharge Disposition: Still a Patient - Medications / Follow-up
[2017-04-21] MEDS: ESCITALOPRAM 10 MG TABLET PO SCH (22:16)
[2017-04-21] MEDS: GABAPENTIN 100 MG CAPSULE PO SCH (22:16)
[2017-04-21] MEDS: CARVEDILOL 25 MG TABLET PO SCH (22:16)
[2017-04-21] MEDS: traMADol 50 MG TABLET PO SCH (22:16)
[2017-04-21] MEDS: SACUBITRIL/VALSARTAN 49-51 MG TABLET PO SCH (22:16)
[2017-04-21] MEDS: ZALEPLON 5 MG CAPSULE PO PRN (22:17)
--- NOTE | 2017-04-22 04:30 | EKG Report ---
Stationary ECG Study [facility] ER Test Date: 04/21/2017 7:39:50 PM Pat Name: REGINA GOMEZ Department: Room: 269 Gender: M Memory Care Program Resident: : 1975 Requested by: Daron Lora Order Number: [id number] Reading MD: REHANA BARRAZA Intervals [place] Rate: 77 P: 39 MA: 147 QRS: -10 QRSD: 113 T: 69 QT: 384 QTc: 416 Interpretive Statements SINUS RHYTHM LOW QRS VOLTAGE IN EXTREMITY LEADS ANTEROSEPTAL MYOCARDIAL INFARCTION, PROBABLY RECENT Electronically Signed On 04-22-17 07:20:35 CDT by REHANA BARRAZA [email or web address]
--- NOTE | 2017-04-22 04:30 | EKG Report ---
Stationary ECG Study [facility] ER Test Date: 04/21/2017 7:07:59 PM Pat Name: REGINA GOMEZ Department: Room: 269 Gender: M Face Cleaner: [place] : 1975 Requested by: Daron Lora Order Number: [id number] Reading MD: REHANA BARRAZA Intervals [place] Rate: 79 P: 37 OR: 148 QRS: -21 QRSD: 112 T: 69 QT: 372 QTc: 407 Interpretive Statements SINUS RHYTHM LOW QRS VOLTAGE IN LIMB LEADS RSR (QR) IN V1/V2 CONSISTENT WITH RIGHT VENTRICULAR CONDUCTION DELAY ANTEROSEPTAL INFARCT, PROBABLY RECENT POSSIBLE INFERIOR EPICARDIAL INJURY Electronically Signed On 04-22-17 07:18:54 CDT by REHANA BARRAZA [email or web address]
[2017-04-22] MEDS: traMADol 50 MG TABLET PO SCH ×2 (09:59→20:10)
[2017-04-22] MEDS: PRASUGREL 10 MG TABLET PO SCH (10:00)
[2017-04-22] MEDS: GABAPENTIN 100 MG CAPSULE PO SCH ×3 (10:02→20:10)
[2017-04-22] MEDS: CARVEDILOL 25 MG TABLET PO SCH ×2 (10:02→20:11)
[2017-04-22] MEDS: PANTOPRAZOLE 40 MG TABLET PO SCH (10:03)
--- NOTE | 2017-04-22 11:59 | Cardiology Progress Note ---
<Violeta Devine - Last Filed: 04/22/17 11:43> Assessment and Plan (1) CAD (coronary artery disease) Status: Chronic Assessment and plan: SEE PLAN OF CARE LISTED BELOW. Current Visit: Yes (2) Dyslipidemia Status: Chronic Assessment and plan: SEE PLAN OF CARE LISTED BELOW. Current Visit: Yes (3) Leg weakness, bilateral Status: Acute Assessment and plan: SEE PLAN OF CARE LISTED BELOW. Current Visit: Yes (4) Hypertension Status: Chronic Assessment and plan: SEE PLAN OF CARE LISTED BELOW. Current Visit: Yes (5) Chest pain Status: Resolved Assessment and plan: SEE PLAN OF CARE LISTED BELOW. Current Visit: Yes Qualifiers: Chest pain type: unspecified Qualified Code(s): R07.9 - Chest pain, unspecified (6) Ischemic cardiomyopathy Status: Chronic Assessment and plan: SEE PLAN OF CARE LISTED BELOW. Current Visit: Yes Cardiology - PN: Subj Interval history: Watch Assembler: Dr. Aguirre SUMMARY : Mr. Winter is a 41 year old male with a prior history of anterior septal myocardial infarction. He underwent cardiac catheterization February 24, [address] Gregg Parks. The total occluded LAD. The patient underwent intervention and AngioJet thrombectomy and stent placement. The patient never regained any flow in the LAD beyond this area even with a stent. He had high pressure large balloon inflation in the stent. He had very ectatic vessels. Again the patient never had reperfusion. He was subsequently placed on aspirin , low-dose Xarelto and Brilinta. Patient has a past medical history of coronary artery disease, hypertension, dyslipidemia and ischemic cardiomyopathy (echocardiogram April 2017 revealed improved ejection fraction, improved from 40 % to 50%). Yesterday evening patient presented to the emergency department with complaints of bilateral lower extremity weakness. He also had complaints of mild chest pain. EKG in the emergency department was concerning for ST elevation [place]. Subsequently, STEMI alert was activated and patient was sent emergently to the catheterization lab. Dr. Martinez performed heart catheterization April 21, 2017 with the following impressions noted: Impression: 1. LV gram and pressures not measured. 2. RCA is large dominant ectatic vessel with less than 20% stenosis. 3. Left main coronary is widely patent. 4. Circumflex artery is a large vessel widely patent with luminal irregularities. 5. LAD proximal is ectatic vessel and total mid occlusion that is chronic. 6. There is no new disease in comparison to prior catheterization. 7. It should be noted this patient is not having a ST segment elevation myocardial infarction. Discussion: In review of our findings as well as previous findings the LAD occlusion is chronic. It is not had any reestablish the flow in the fact that we could not cross the area would indicate such. The patient is is not having an ST segment elevation myocardial infarction. We will treat this patient medically. We will have neurology see the patient regard to his leg weakness that is intermittent. We will continue his risk factor modifications. April UPDATE : Post heart catheterization patient was transported to the telemetry unit in stable condition. This morning, patient is doing well without complaints of chest pain, heaviness or tightness. Patient continues to complain of progressive bilateral lower extremity weakness. This has been going on since his first heart catheterization February 2017. He tells me that his right leg is weaker than the left. He reports falling at home and that he has to have assistance when up out of bed. At this point, neurology has been consulted for assistance. Physical therapy has also been asked to evaluate and treat patient as they see fit. Right groin is soft without pitting, hematoma and bruit. Distal pulses are present. Right groin precautions have been reviewed with the patient. He verbalized understanding of this. Vital signs are stable. At this point, we will continue current plan of care and await neurology's recommendations. Patient may be able to be discharged home later this afternoon. I will further discuss with Dr. Aguirre and await his recommendations. ASSESSMENT / PLAN: 1. CHEST PAIN - This was not a STEMI. Patient was taken emergently to the geochemical laboratory technician last night. There was no new disease in comparison to prior catheterization. Patient does have a total mid occlusion of the proximal LAD. However this is chronic. 2. CORONARY ARTERY DISEASE - This was not a STEMI. Patient does have a total mid occlusion to the proximal LAD. However, this is chronic. At this point, we will continue current plan of care with Effient, Xarelto, aspirin, lipid- lowering agent and beta alison. 3. ISCHEMIC CARDIOMYOPATHY - Clinically stable. Ejection fraction 50% noted from recent echocardiogram, April 2017. Continue current plan of care with beta alison, Entresto and spironolactone. 4. BILATERAL LOWER EXTREMITY WEAKNESS - Consult neurology and physical therapy. 5. HYPERTENSION - Continue current plan of care. Will adjust medications as needed throughout his hospital stay. 6. DYSLIPIDEMIA - Continue current plan of care with lipid lowering agent. Exam (Progress Note) - Constitutional Vitals: Period Temp Pulse Resp BP Sys/Aggarwal Pulse Ox Last 24 Hr 97 F-97.7 F 70-83 18-20 98-125/7-79 95-100 Exam: General: Appears well with no apparent distress. Pleasant and cooperative. Appears comfortable. HEENT: PERRL, normocephalic, atraumatic. Mucous membranes moist. No jaundice noted. Conjunctiva moist and clear, sclerae anicteric Neck: No JVD/HJR, no thyromegaly or lymphadenopathy noted. No carotid bruit appreciated Cardiac: Regular rate and rhythm. No murmur rub or gallop. Lungs: Clear to auscultation without accessory muscle use to assist the respiratory pattern. Not requiring oxygen. Abdomen: Soft, bowel sounds normoactive. Nontender and nondistended. No abdominal bruit or thrill noted. No masses noted. Extremities: No clubbing, cyanosis noted. No edema noted. Upper extremity pulses 2+. Lower extremity pulses 2+. Capillary refill less than 3 seconds. Right groin is soft without bleeding, hematoma and bruit. Skin: No unusual lesions or rashes. No skin breakdown appreciated. Neuro: Awake, alert and oriented 3. Moves all extremities well without hemiparesis or paralysis. No essential tremor is appreciated. Result/EKG - Labs CBC & BMP: 04/21/17 19:24 04/21/17 19:24 Lab Results: I have reviewed the past 24 hour labs Labs: Laboratory Results - last 24 hr 04/21/17 04/21/17 04/21/17 19:24 19:24 19:24 WBC 4.5 RBC 4.09 Hgb 12.0 L Hct 33.9 L MCV 82.9 L MCH 29 MCHC 35.4 RDW 14.0 Plt Count 230 MPV 9.4 L Neut % (Auto) 49.4 Lymph % (Auto) 39.1 [place] % (Auto) 10.2 Eos % (Auto) 1.1 Baso % (Auto) 0.2 Neut # (Auto) 2.2 Lymph # (Auto) 1.8 [place] # (Auto) 0.5 Eos # (Auto) 0.1 Baso # (Auto) 0.0 Immature Gran % 0.0 Nucleated RBC % 0.0 Immature Gran # 0.00 Nucleated RBCs # 0.00 INR 1.2 PT Patient/Control Mix 12.8 Sodium 139 Potassium 3.9 Chloride 105 Carbon Dioxide 26 Anion Gap 11.9 BUN 11 Creatinine 1.00 GFR Calculation 148 BUN/Creatinine Ratio 11.00 Glucose 97 Calculated Osmolality 275.5 Calcium 8.9 Magnesium 2.1 Total Bilirubin 0.70 AST 22 ALT 57 Alkaline Phosphatase 61 Total Creatine Kinase CK-MB (CK-2) Troponin I Total Protein 7.6 Albumin 4.0 Globulin 3.6 H Albumin/Globulin Ratio 1.1 Lipase 131.0 04/21/17 19:24 WBC RBC Hgb Hct MCV MCH MCHC RDW Plt Count MPV Neut % (Auto) Lymph % (Auto) [place] % (Auto) Eos % (Auto) Baso % (Auto) Neut # (Auto) Lymph # (Auto) [place] # (Auto) Eos # (Auto) Baso # (Auto) Immature Gran % Nucleated RBC % Immature Gran # Nucleated RBCs # INR PT Patient/Control Mix Sodium Potassium Chloride Carbon Dioxide Anion Gap BUN Creatinine GFR Calculation BUN/Creatinine Ratio Glucose Calculated Osmolality Calcium Magnesium Total Bilirubin AST ALT Alkaline Phosphatase Total Creatine Kinase 125 CK-MB (CK-2) < 1.0 Troponin I < 0.015 Total Protein Albumin Globulin Albumin/Globulin Ratio Lipase Quality Measures - VTE Contraindication to Pharmacological VTE Prophylaxis: High Risk of Bleeding - Stroke Symptom Onset Unknown: No Specialty Discharge - Follow Up or Referrals <Hussain Aguirre - Last Filed: 04/22/17 12:13> Exam (Progress Note) - Constitutional Vitals: Period Temp Pulse Resp BP Sys/Aggarwal Pulse Ox Last 24 Hr 97 F-97.7 F 70-83 18-20 98-125/7-79 95-100 Result/EKG - Labs CBC & BMP: 04/21/17 19:24 04/21/17 19:24 Labs: Laboratory Results - last 24 hr 04/21/17 04/21/17 04/21/17 19:24 19:24 19:24 WBC 4.5 RBC 4.09 Hgb 12.0 L Hct 33.9 L MCV 82.9 L MCH 29 MCHC 35.4 RDW 14.0 Plt Count 230 MPV 9.4 L Neut % (Auto) 49.4 Lymph % (Auto) 39.1 [place] % (Auto) 10.2 Eos % (Auto) 1.1 Baso % (Auto) 0.2 Neut # (Auto) 2.2 Lymph # (Auto) 1.8 [place] # (Auto) 0.5 Eos # (Auto) 0.1 Baso # (Auto) 0.0 Immature Gran % 0.0 Nucleated RBC % 0.0 Immature Gran # 0.00 Nucleated RBCs # 0.00 INR 1.2 PT Patient/Control Mix 12.8 Sodium 139 Potassium 3.9 Chloride 105 Carbon Dioxide 26 Anion Gap 11.9 BUN 11 Creatinine 1.00 GFR Calculation 148 BUN/Creatinine Ratio 11.00 Glucose 97 Calculated Osmolality 275.5 Calcium 8.9 Magnesium 2.1 Total Bilirubin 0.70 AST 22 ALT 57 Alkaline Phosphatase 61 Total Creatine Kinase CK-MB (CK-2) Troponin I Total Protein 7.6 Albumin 4.0 Globulin 3.6 H Albumin/Globulin Ratio 1.1 Lipase 131.0 04/21/17 19:24 WBC RBC Hgb Hct MCV MCH MCHC RDW Plt Count MPV Neut % (Auto) Lymph % (Auto) [place] % (Auto) Eos % (Auto) Baso % (Auto) Neut # (Auto) Lymph # (Auto) [place] # (Auto) Eos # (Auto) Baso # (Auto) Immature Gran % Nucleated RBC % Immature Gran # Nucleated RBCs # INR PT Patient/Control Mix Sodium Potassium Chloride Carbon Dioxide Anion Gap BUN Creatinine GFR Calculation BUN/Creatinine Ratio Glucose Calculated Osmolality Calcium Magnesium Total Bilirubin AST ALT Alkaline Phosphatase Total Creatine Kinase 125 CK-MB (CK-2) < 1.0 Troponin I < 0.015 Total Protein Albumin Globulin Albumin/Globulin Ratio Lipase
--- NOTE | 2017-04-22 13:21 | Discharge Summary ---
Hospital Course - Hospital Course Hospital Course: Aerospace Technician: Dr. Aguirre SUMMARY : Mr. Winter is a 41 year old male with a prior history of anterior septal myocardial infarction. He underwent cardiac catheterization February 24, [address] Gregg Parks. The total occluded LAD. The patient underwent intervention and AngioJet thrombectomy and stent placement. The patient never regained any flow in the LAD beyond this area even with a stent. He had high pressure large balloon inflation in the stent. He had very ectatic vessels. Again the patient never had reperfusion. He was subsequently placed on aspirin , low-dose Xarelto and Brilinta. Patient has a past medical history of coronary artery disease, hypertension, dyslipidemia and ischemic cardiomyopathy (echocardiogram April 2017 revealed improved ejection fraction, improved from 40 % to 50%). Yesterday evening patient presented to the emergency department with complaints of bilateral lower extremity weakness. He also had complaints of mild chest pain. EKG in the emergency department was concerning for ST elevation [place]. Subsequently, STEMI alert was activated and patient was sent emergently to the catheterization lab. Dr. Martinez performed heart catheterization April 21, 2017 with the following impressions noted: Impression: 1. LV gram and pressures not measured. 2. RCA is large dominant ectatic vessel with less than 20% stenosis. 3. Left main coronary is widely patent. 4. Circumflex artery is a large vessel widely patent with luminal irregularities. 5. LAD proximal is ectatic vessel and total mid occlusion that is chronic. 6. There is no new disease in comparison to prior catheterization. 7. It should be noted this patient is not having a ST segment elevation myocardial infarction. Discussion: In review of our findings as well as previous findings the LAD occlusion is chronic. It is not had any reestablish the flow in the fact that we could not cross the area would indicate such. The patient is is not having an ST segment elevation myocardial infarction. We will treat this patient medically. We will have neurology see the patient regard to his leg weakness that is intermittent. We will continue his risk factor modifications. Post heart catheterization patient was transported to the telemetry unit in stable condition. This morning, patient is doing well without complaints of chest pain, heaviness or tightness. Right groin is soft without pitting, hematoma and bruit. Distal pulses are present. Right groin has remained stable post ambulation. Right groin precautions have been reviewed with the patient. He verbalized understanding of this. Patient had complaints of progressive bilateral lower extremity weakness this admission which has been going on since his first heart catheterization February 2017. He tells me that his right leg is weaker than the left. He reports falling at home. Neurology and physical therapy were consulted. Subsequently, patient underwent MRI of the lumbar spine and nerve conduction study. MRI of the lumbosacral spine reveals no significant pathology. It does however reveal mild degenerative disc disease. Nerve conduction study/EMG is within normal limits. Per Dr. Duncan, differential diagnoses included lumbar radiculopathy or lumbosacral plexopathy versus functional element. Mr. Winter tells me that his lower extremity weakness has improved today. He is able to ambulate well. Has been given crutches per PT. Steady gait noted. He is anxious for discharge home. We will set patient up with outpatient occupational therapy and physical therapy. He will also be given a follow-up appoint with Dr. Duncan in 1-[address] Aguirre in 3 weeks with EKG. He is agreeable with this discharge plan. Vital signs are stable. Labs have been reviewed and are overall unremarkable. Having felt that patient has met maximal medical therapy , patient will be discharged home in stable condition. Patient has a sleep study scheduled for April 29, 2017. He has been given a follow-up appointment with Dr. Aguirre in 3 weeks with EKG. Patient has been given a follow-up appointment with Dr. Duncan in 1-2 weeks. Patient verbalized understanding of discharge instructions and discharge medications. - Time spent with patient Time with patient DS: Greater than 30 minutes Diagnosis - Discharge Diagnosis (1) CAD (coronary artery disease) Status: Chronic (2) Dyslipidemia Status: Chronic (3) Leg weakness, bilateral Status: Acute (4) Hypertension Status: Chronic (5) Chest pain Status: Resolved (6) Ischemic cardiomyopathy Status: Chronic Specialty Discharge - Follow Up or Referrals Follow up with: Rob Duncan MD [Physician] - (Patient is a follow-up appoint with Dr. Duncan in 1-2 weeks) Hussain Aguirre MD [Physician] - (Follow-up point with Dr. Aguirre in 3 weeks with EKG.) Discharge Plan - Discharge Data Condition at Discharge: Stable Discharge Diet: heart healthy Activity: no lifting (Avoid heavy lifting and squatting 1 week.), other (Post cath expectations) Hygiene: other (Post cath expectations) Weight Bearing at Discharge: other (Post cath expectations) Driving: not until seen by doctor (Post cath expectations) Contact your physician if you experience:: fever over 101, Difficulty voiding, Redness or swelling, Nausea/Vomiting, Shortness of breath, Bleeding, pain uncontrolled by pain medications - Discharge Medications New Ranolazine [Ranexa] 500 mg PO BID #60 tablet Continue Nitroglycerin Sl Tab [Nitrostat] 0.4 mg SL Q5M PRN #50 tablet PRN Reason: Chest Pain Aspirin EC Tab 81 mg PO 1400 Rivaroxaban [Xarelto] 10 mg PO 1400 Escitalopram [Lexapro] 10 mg PO BEDTIME #30 tablet Pantoprazole Tab [Protonix Tab] 40 mg PO DAILY #30 tablet Prasugrel [Effient] 10 mg PO DAILY #30 tablet Carvedilol [Coreg] 25 mg PO BID #60 tablet Sacubitril/Valsartan [Entresto 49 mg-51 mg Tablet] 0.5 tablet PO BID #60 tablet Gabapentin Cap/Tab [Neurontin Cap/Tab] 100 mg PO TID #90 capsule Spironolactone [Aldactone] 6.25 mg PO DAILY #30 tablet Discontinued Rosuvastatin [Crestor] 40 mg PO QPM traMADol TAB [Ultram] 50 mg PO BID tablet - Follow Up or Referral Follow Up: Hussain Aguirre MD [Physician] - (Follow-up point with Dr. Aguirre in 3 weeks with EKG.) - Forms/Instructions Instructions: Coronary Artery Disease (GEN), Left Heart Catheterization (DC), Heart Healthy Diet (GEN) Exam - Constitutional Vitals: Period Temp Pulse Resp BP Sys/Aggarwal Pulse Ox Last 24 Hr 97 F-97.7 F 70-83 18-20 98-125/7-79 95-100 Exam: General: Appears well with no apparent distress. Pleasant and cooperative. Appears comfortable. HEENT: PERRL, normocephalic, atraumatic. Mucous membranes moist. No jaundice noted. Conjunctiva moist and clear, sclerae anicteric Neck: No JVD/HJR, no thyromegaly or lymphadenopathy noted. No carotid bruit appreciated Cardiac: Regular rate and rhythm. No murmur rub or gallop. Lungs: Clear to auscultation without accessory muscle use to assist the respiratory pattern. Not requiring oxygen. Abdomen: Soft, bowel sounds normoactive. Nontender and nondistended. No abdominal bruit or thrill noted. No masses noted. Extremities: No clubbing, cyanosis noted. No edema noted. Upper extremity pulses 2+. Lower extremity pulses 2+. Capillary refill less than 3 seconds. Right groin is soft without bleeding, hematoma and bruit. Skin: No unusual lesions or rashes. No skin breakdown appreciated. Neuro: Awake, alert and oriented 3. Moves all extremities well without hemiparesis or paralysis. No essential tremor is appreciated. Discharge Results Procedures and tests throughout hospitalization: Pending Orders 04/23/17 04:00 BMP w/ Mg [Basic Metabolic Panel w/Mg] IN AM CBC [Comp Blood Count Auto Diff] IN AM Labs on day of discharge: Labs from last 24 hours 04/21/17 04/21/17 04/21/17 19:24 19:24 19:24 WBC 4.5 RBC 4.09 Hgb 12.0 L Hct 33.9 L MCV 82.9 L MCH 29 MCHC 35.4 RDW 14.0 Plt Count 230 MPV 9.4 L Neut % (Auto) 49.4 Lymph % (Auto) 39.1 [place] % (Auto) 10.2 Eos % (Auto) 1.1 Baso % (Auto) 0.2 Neut # (Auto) 2.2 Lymph # (Auto) 1.8 [place] # (Auto) 0.5 Eos # (Auto) 0.1 Baso # (Auto) 0.0 Immature Gran % 0.0 Nucleated RBC % 0.0 Immature Gran # 0.00 Nucleated RBCs # 0.00 INR PT Patient/Control Mix Sodium 139 Potassium 3.9 Chloride 105 Carbon Dioxide 26 Anion Gap 11.9 BUN 11 Creatinine 1.00 GFR Calculation 148 BUN/Creatinine Ratio 11.00 Glucose 97 Calculated Osmolality 275.5 Calcium 8.9 Magnesium 2.1 Total Bilirubin 0.70 AST 22 ALT 57 Alkaline Phosphatase 61 Total Creatine Kinase 125 CK-MB (CK-2) < 1.0 Troponin I < 0.015 Total Protein 7.6 Albumin 4.0 Globulin 3.6 H Albumin/Globulin Ratio 1.1 Lipase 131.0 04/21/17 19:24 WBC RBC Hgb Hct MCV MCH MCHC RDW Plt Count MPV Neut % (Auto) Lymph % (Auto) [place] % (Auto) Eos % (Auto) Baso % (Auto) Neut # (Auto) Lymph # (Auto) [place] # (Auto) Eos # (Auto) Baso # (Auto) Immature Gran % Nucleated RBC % Immature Gran # Nucleated RBCs # INR 1.2 PT Patient/Control Mix 12.8 Sodium Potassium Chloride Carbon Dioxide Anion Gap BUN Creatinine GFR Calculation BUN/Creatinine Ratio Glucose Calculated Osmolality Calcium Magnesium Total Bilirubin AST ALT Alkaline Phosphatase Total Creatine Kinase CK-MB (CK-2) Troponin I Total Protein Albumin Globulin Albumin/Globulin Ratio Lipase - Imaging and Cardiology Cardiology Procedure: report reviewed by wy DS: Provider Date of admission: 04/21/17 20:52 Primary care physician: . No PCP Attending physician on admission: Hussain Torres Consults: 04/21/17 20:53 Consult to Cardiac Rehabilitation [CONS] Routine Reason for Cardiac Rehabilitation: Risk Factor Modification 04/21/17 20:59 Consult to Physician [CONS] Routine Comment: bilateral leg weakness Consulting Provider: [facility] Neurology Consulting Provider Notified: No When should Consulting Provider be notified: In am 04/22/17 10:13 Consult to Physical Therapy [CONS] Routine Reason for Physical Therapy: Evaluate and Treat Start Therapy: Today Discharging clinician: Violeta Devine NP Expected date of discharge: 04/22/17
--- NOTE | 2017-04-22 15:51 | Neurology Consult Note ---
History of Present Illness History of present illness: Mr. Winter is a 41 year old right-handed -[place] gentleman with a prior history of anterior septal myocardial infarction, CAD, hypertension, dyslipidemia, ischemic cardiomyopathy with ejection fraction of 40-50%. He underwent cardiac catheterization February 24, 2017 and underwent cardiac stenting but never gained any flow and later underwent high-pressure large balloon inflation in the stent. He was subsequently placed on aspirin, low-dose Xarelto and Brilinta. Yesterday evening patient presented to the emergency department with complaints of bilateral lower extremity weakness. He also had complaints of mild chest pain. EKG in the emergency department was concerning for ST elevation [place]. Subsequently, STEMI alert was activated and patient was sent emergently to the catheterization lab. Patient has been complaining of right lower extremity pain weakness and difficulty in walking. Patient reported that he never gained strength in the right leg since the first cardiac cath in February. He has developed some difficulty in walking and limping. He reported that it hurts and is numb and weak. Reported that whenever he tried to walk the weakness and numbness gets worse Home Medications Medication Instructions Recorded Confirmed Type Nitroglycerin Sl Tab [Nitrostat] 0.4 mg SL Q5M PRN #50 tablet 03/03/17 04/21/17 Rx Aspirin EC Tab 81 mg PO 1400 04/11/17 04/21/17 History Rivaroxaban [Xarelto] 10 mg PO 1400 04/11/17 04/21/17 History Rosuvastatin [Crestor] 40 mg PO QPM 04/11/17 04/21/17 History Carvedilol [Coreg] 25 mg PO BID #60 tablet 04/14/17 04/21/17 Rx Escitalopram [Lexapro] 10 mg PO BEDTIME #30 tablet 04/14/17 04/21/17 Rx Gabapentin Cap/Tab [Neurontin 100 mg PO TID #90 capsule 04/14/17 04/21/17 Rx Cap/Tab] Pantoprazole Tab [Protonix Tab] 40 mg PO DAILY #30 tablet 04/14/17 04/21/17 Rx Prasugrel [Effient] 10 mg PO DAILY #30 tablet 04/14/17 04/21/17 Rx Sacubitril/Valsartan [Entresto 49 0.5 tablet PO BID #60 tablet 04/14/17 Rx mg-51 mg Tablet] Spironolactone [Aldactone] 6.25 mg PO DAILY #30 tablet 04/14/17 04/21/17 Rx traMADol TAB [Ultram] 50 mg PO BID tablet 04/14/17 04/21/17 Rx Allergies Allergy/AdvReac Type Severity Reaction Status Date / Time No Known Allergies Allergy Unverified 04/21/17 19:08 12 point system: reviewed and no additional remarkable complaints except as stated Medical,Surgical,& Family Hx - Medical History Cardio: History of: Hypertension, [place] (February 2017) No history of: CAD Neurology: No history of: Seizures Endocrine: History of: Dyslipidemia - Surgical History Thoracic Surgeries: Patient denies;: Lobectomy Abdominal Surgeries: Patient denies: Abdominal Surgery - Family History Family History: Reports;: Family Heart Disease, Family Hypertension - Social History Smoking Status: Never smoker Frequency of Alcohol Use: None Type of Drug Use: None Exam - Constitutional Vitals: Period Temp Pulse Resp BP Sys/Aggarwal Pulse Ox Last 24 Hr 97 F-97.7 F 70-83 18-20 98-125/7-79 95-100 Exam: GENERAL: Patient is in no acute distress. NECK: Neck is supple. There is no JVD. No carotid bruits present. No thyroid masses. CVS: First and second heart sounds are normal. There is no S3 present. Regular rate and rhythm. RESPIRATORY: Lungs are clear to auscultation without any rales or rhonchi. ABDOMEN: Soft and non-tender. Bowel sounds are present. There is no hepatosplenomegaly. EXT: There is no palpable edema. Peripheral pulses are present. Skin: No rashes Central Nervous system: General: Alert, awake and Oriented x 3 Speech: Fluent Comprehension: Intact and normal Facial expressions: Normal Cranial Nerves: CN1/Olfactory: Normal CN II/ Optic: Normal, Visual Kaplan unreliable CN III, and : REGINA & EOMI CN V: Normal & intact CN VII: face is symmetric CNVIII: Normal CN XI/X/XI/XII: Intact and Normal Motor: Bulk and Tone is normal. Strength in the right lower extremely some giveaway weakness Strength in the left 5/5 Sensory: Grossly intact for all the modalities of PP, LT and temp sense Reflexes: 2+ and symmetrical Cerebellar function: Normal finger to nose and heel to meyer testing. Toes: Equivocal Gait: Walking with a limp. Results - Labs CBC & BMP: 04/21/17 19:24 04/21/17 19:24 Assessment and Plan (1) Right leg weakness Status: Acute Assessment and plan: No clear localization can be appreciated on the exam. Differential diagnoses included lumbar radiculopathy or lumbosacral plexopathy versus functional element. MRI LS spine Nerve conduction study/EMG Continue PT and OT He would not need acute inpatient rehabilitation Current Visit: Yes Specialty Discharge - Follow Up or Referrals Follow up with: Hussain Aguirre MD [Physician] - (Follow-up point with Dr. Aguirre in 3 weeks with EKG.)
[2017-04-22] MEDS: SPIRONOLACTONE 25 MG TABLET PO SCH (16:51)
[2017-04-22] MEDS: SACUBITRIL/VALSARTAN 49-51 MG TABLET PO SCH ×2 (16:52→20:11)
[2017-04-22] MEDS: ASPIRIN EC 81 MG TABLET PO SCH (17:10)
[2017-04-22] MEDS: RANOLAZINE 500 MG TABLET PO SCH ×2 (17:10→20:10)
[2017-04-22] MEDS: RIVAROXABAN 10 MG TABLET PO SCH (17:14)
[2017-04-22] MEDS ORDERED: ROSUVASTATIN 20 MG TABLET PO SCH (19:00)
[2017-04-22] MEDS: ESCITALOPRAM 10 MG TABLET PO SCH (20:11)
[2017-04-22] MEDS: ZALEPLON 5 MG CAPSULE PO PRN (22:37)
[2017-04-23] MEDS: GABAPENTIN 100 MG CAPSULE PO SCH ×2 (08:58→14:45)
[2017-04-23] MEDS: PRASUGREL 10 MG TABLET PO SCH (08:59)
[2017-04-23] MEDS: traMADol 50 MG TABLET PO SCH (08:59)
[2017-04-23] MEDS: PANTOPRAZOLE 40 MG TABLET PO SCH (08:59)
[2017-04-23] MEDS: SACUBITRIL/VALSARTAN 49-51 MG TABLET PO SCH (08:59)
[2017-04-23] MEDS: CARVEDILOL 25 MG TABLET PO SCH (08:59)
[2017-04-23] MEDS: RANOLAZINE 500 MG TABLET PO SCH (08:59)
[2017-04-23] MEDS: SPIRONOLACTONE 25 MG TABLET PO SCH (08:59)
--- NOTE | 2017-04-23 09:58 | Event Note ---
Mr. Winter had an uneventful night. This morning, he is doing well without cardiac complaints. Neurology was consulted yesterday for his bilateral lower extremity weakness and he is scheduled for MRI and nerve conduction study this morning. Depending on what the studies reveal, patient will most likely be ready for discharge later this afternoon.
[2017-04-23] MEDS ORDERED: LACTULOSE 20 GM/30 ML UDCUP PO PRN (10:02)
--- NOTE | 2017-04-23 14:00 | Magnetic Resonance Report ---
Referring physician: Hussain Aguirre Exam: MRI lumbar spine without contrast Date: April 23, 2017 Comparison: None Reason: Weakness and numbness in lower extremities right greater than left Technique: MRI of the lumbar spine was performed without the use of contrast. Imaging sequences include sagittal T1, sagittal T2, sagittal STIR, axial T1 and axial T2 sequences. A 1.5 Katie magnet was used. Findings: The lumbar vertebral bodies are normal in height. There is disc desiccation, mild endplate degenerative change and mild disc space narrowing at L5-S1. There is also questionable minimal retrolisthesis at L5-S1. Remaining disc space heights at the lumbar spine are well-maintained. The visualized lower spinal cord is unremarkable, and the conus ends at L2. At T12-L1, no spinal canal stenosis or neuroforaminal narrowing is identified. At L1-L2, no spinal canal stenosis or neuroforaminal narrowing is identified. At L2-L3, no spinal canal stenosis or neuroforaminal narrowing is identified. At L3-L4, no spinal canal stenosis or neuroforaminal narrowing is identified. At L4-L5, there is minimal bilateral facet arthropathy. No spinal canal stenosis is present, but there is minimal left neuroforaminal narrowing. At L5-S1, there is a mild posterior disc bulge which is most prominent in the right paracentral region. There is also a posterior annular tear and minimal bilateral facet arthropathy. No significant spinal canal stenosis is seen, but there is mild bilateral neuroforaminal narrowing, right greater than left. The paravertebral soft tissue structures are unremarkable. Impression: Mild degenerative change at the lumbar spine, most prominent at L5-S1. PROCEDURE INTERPRETED AT [facility] DEPARTMENT OF RADIOLOGY Final Report Signed by: Dr. Sarah Earl
[2017-04-23] MEDS: ASPIRIN EC 81 MG TABLET PO SCH (14:45)
[2017-04-23] MEDS: RIVAROXABAN 10 MG TABLET PO SCH (14:45)
--- NOTE | 2017-04-23 15:15 | Neurology Progress Note ---
Neurology - PN : Subjective Interval history: Patient seems to be doing about the same. Still cannot feel anything of the right leg. Marked difficulty in walking. Etiology of her symptoms are not clear. MRI of the lumbosacral spine reveals no significant pathology. It reveals mild DDD. Nerve conduction study/EMG is within normal limits. Exam (Progress Note) - Constitutional Vitals: Period Temp Pulse Resp BP Sys/Aggarwal Pulse Ox Last 24 Hr 98 F-98.6 F 73-80 18-20 92-109/57-61 94-100 Exam: GENERAL: Patient is in no acute distress. NECK: Neck is supple. There is no JVD. No carotid bruits present. No thyroid masses. CVS: First and second heart sounds are normal. There is no S3 present. Regular rate and rhythm. RESPIRATORY: Lungs are clear to auscultation without any rales or rhonchi. ABDOMEN: Soft and non-tender. Bowel sounds are present. There is no hepatosplenomegaly. EXT: There is no palpable edema. Peripheral pulses are present. Skin: No rashes Central Nervous system: General: Alert, awake and Oriented x 3 Speech: Fluent Comprehension: Intact and normal Facial expressions: Normal Cranial Nerves: CN1/Olfactory: Normal CN II/ Optic: Normal, Visual Kaplan unreliable CN III, and : REGINA & EOMI CN V: Normal & intact CN VII: face is symmetric CNVIII: Normal CN XI/X/XI/XII: Intact and Normal Motor: Bulk and Tone is normal. Strength in the right lower extremely some giveaway weakness Strength in the left 5/5 Sensory: Grossly intact for all the modalities of PP, LT and temp sense Reflexes: 2+ and symmetrical Cerebellar function: Normal finger to nose and heel to meyer testing. Toes: Equivocal Gait: Walking with a limp. Results - Labs CBC & BMP: 04/21/17 19:24 04/21/17 19:24 Assessment and Plan (1) Right leg weakness Status: Acute Assessment and plan: No clear localization can be appreciated on the exam. Differential diagnoses included lumbar radiculopathy or lumbosacral plexopathy versus functional element. Recommend outpatient PT and OT No further intervention from neuro standpoint Sign off please call as needed Current Visit: Yes Quality Measures - VTE Contraindication to Pharmacological VTE Prophylaxis: High Risk of Bleeding - Stroke Symptom Onset Unknown: No Specialty Discharge - Follow Up or Referrals Follow up with: Hussain Aguirre MD [Physician] - (Follow-up point with Dr. Aguirre in 3 weeks with EKG.)
[2017-04-23 15:29] VITALS: BP 104/59
== END 2017-04-23 17:35 | disposition home or self-care (01) ==
LOC: N.ED 18:58 → N.TELES 18:58 → UNDODISOB 04-22 14:21
PROVIDERS: ADMIT Internal Medicine Cardiovascular Disease; ATTEND Internal Medicine Cardiovascular Disease

== ENCOUNTER 2017-05-18 12:25 | Inpatient (IN) ==
[2017-05-18] MEDS ORDERED: NITROGLYCERIN 2% OINT 1 INCH/GM PACK TOP STA (12:52)
[2017-05-18] MEDS ORDERED: METOCLOPRAMIDE 10 MG/2 ML VIAL IV STA (12:55)
[2017-05-18] MEDS ORDERED: ONDANSETRON 4 MG/2 ML VIAL IV STA (12:56)
--- NOTE | 2017-05-18 12:59 | EKG Report ---
Stationary ECG Study 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
--- NOTE | 2017-05-18 13:04 | Emergency Department Note ---
Arrival - Arrival Chief Complaint: Non-Specific ED Nursing Triage Note: pt started vomiting and then passed out per mother. after sternal rubbing pt he will shake his head yes if you ask if he has cp Mode of Arrival: Stretcher Limitations: No Limitations Source: Patient, Family Time Seen by Provider: 05/18/17 12:52 - History of Present Illness HPI Narrative: This 41-year-old black male presents with a history, mostly from the family as the patient can talk but does not appear to desire to at this time, dragging the right leg during the day yesterday and complaining of not feeling right. The patient then awoke this morning had breakfast and then had abrupt onset of left-sided chest pain, shortness of breath, and diaphoresis associated with severe nausea and vomiting to the point he passed out and was out for several seconds. The patient does have a history of significant cardiac disease as well as anxiety which is playing an unknown row and his inability to express himself. However he does state that he still has some chest pain and still has some nausea. He does have a history of [address] Aguirre with markedly abnormal EKGs but most recent cath on April 23 revealing normal LV gram , ectatic RCA with less than 20% stenosis, widely patent left main coronary, widely patent circumflex artery, and mild occlusion of the left anterior descending artery proximally. This was after catheterization in February for which she had thrombectomy and stent placement of a totally occluded LAD. At the time of that catheterization and hospitalization it should be noted that he did state he had right lower extremity weakness at that time. Evaluation at that time revealed the possibility of either a lumbo-sacral radiculopathy versus a psychogenic element. Onset (ago): hour(s) (Patient presents 2 hours post onset of symptoms) Allergies/Adverse Reactions: Allergies Allergy/AdvReac Type Severity Reaction Status Date / Time No Known Allergies Allergy Unverified 04/21/17 19:08 Home Medications: Home Medications Medication Instructions Recorded Confirmed Type Nitroglycerin Sl Tab [Nitrostat] 0.4 mg SL Q5M PRN #50 tablet 03/03/17 05/18/17 Rx Prasugrel [Effient] 10 mg PO DAILY #30 tablet 04/14/17 05/18/17 Rx Sacubitril/Valsartan [Entresto 49 0.5 tablet PO BID #60 tablet 04/14/17 Rx mg-51 mg Tablet] Acetaminophen Tab [Tylenol Tab] 325 mg PO BID 05/18/17 05/18/17 History Aspirin EC Tab 81 mg PO DAILY 05/18/17 05/18/17 History Carvedilol [Coreg] 12.5 mg PO DAILY PRN 05/18/17 05/18/17 History Furosemide Tab [Lasix Tab] 40 mg PO DAILY 05/18/17 05/18/17 History Rivaroxaban [Xarelto] 20 mg PO DAILY 05/18/17 05/18/17 History Review of System - Review of System 12 point system: reviewed and no additional remarkable complaints except as stated - Review of System Constitutional: Present: as per HPI Respiratory: Present: as per HPI Cardiovascular: Present: as per HPI Gastrointestinal: Present: as per HPI Medical,Surgical,& Family Hx - Medical History Cardio: History of: Hypertension, [place] (February 2017) No history of: CAD Neurology: No history of: Seizures Endocrine: History of: Dyslipidemia - Surgical History Thoracic Surgeries: Patient denies;: Lobectomy Abdominal Surgeries: Patient denies: Abdominal Surgery - Family History Family History: Reports;: Family Heart Disease, Family Hypertension - Social History Smoking Status: Unknown if ever smoked Frequency of Alcohol Use: Unknown Type of Drug Use: Unknown Exam Physical Examination: GENERAL: Well developed, well nourished black male in no acute distress. HEENT: Normocephalic. No trauma. Moist mucous membranes. EOMI. PERRLA. ENT NML NECK: Supple. No adenopathy. CARDIAC: Regular. No murmurs. Heart rate 110 CHEST: Clear to auscultation. No respiratory distress. O2 sat 100% ABDOMEN: Soft. Nontender. Active bowel sounds. EXTREMITIES: No trauma. Normal ROM. No pedal edema. SKIN: No diaphoresis. No rash. NEURO: Alert. Patient appears to have problems speaking although would not seem wet would be described as aphasia, but more a selected desire not to speak , oriented to person and place, unable to evaluate time, motor sensory vibratory intact. At times he would appear to have right-sided weakness 4 out of 5 compared to 5 out of 5 on the left but then again after stepping away he would use the right upper extremity in a manner not associated with any weakness. Vital Signs: Vital Signs Temperature 98.0 F 05/18/17 12:31 Pulse Rate 107 H 05/18/17 12:31 Respiratory Rate 18 05/18/17 13:05 Blood Pressure 130/86 05/18/17 12:31 O2 Sat by Pulse Oximetry 100 05/18/17 12:31 Course - Reevaluation(s) Reevaluation #1: Discussed with family the patient would be admitted for further evaluation. - Consultations Consultation #1: Discussed with cardiology who deferred to hospitalist service for neuropsych evaluation Consultation #2: Discussed with hospitalist service who will admit for further evaluation treatment. Results - Labs CBC & BMP: 05/18/17 12:48 05/18/17 12:48 Labs: I reviewed the laboratory and noted the normal cardiac's - Impressions EKG: Sinus rhythm at 91 with normal QRS duration and VT interval. Evidence of right ventricular hypertrophy as well as evidence of recent anterolateral VT. Notable is a similarity of this EKG to an EKG done April 11 - Diagnostic Findings Procedure: Chest x-ray: image reviewed by me, report reviewed by me (Normal chest), CT: image reviewed by me, report reviewed by me (Head: Normal study) Disposition Clinical Impression: Syncope, Coronary artery disease, Lumbar radiculopathy RLE, Unspecified psychosis Case discussed with: patient's family Disposition: Still a Patient Condition: Stable Time of Disposition: 15:29
[2017-05-18 13:07] LABS: Basophils % 0.2 % (0.0-0.8); Eosinophils # 0.1 10*3/uL (0.0-0.87); Eosinophils % 1.5 % (0.00-10.9); Hematocrit 37.5 VOL% (42.0-52.0); Hemoglobin 13.4 GM/DL (14.0-18.0); Immature Granulocytes % 0.2 %; Immature Granulocytes Absolute 0.01 #; Lymphocytes # 1.7 10*3/uL (1.4-4.0); Lymphocytes % 41.7 % (21.2-54.2); Mean Corpuscular HGB Conc 35.7 GM/DL (32-36); Mean Corpuscular Hemoglobin 29 PG (27-34); Mean Corpuscular Volume 81.7 FL (87-102); Mean Platelet Volume 9.4 FL (9.6-12.0); Monocytes # 0.3 10*3/uL (0.11-0.8); Monocytes % 8.4 % (1.7-12.7); Neutrophils # 1.9 10*3/uL (1.4-7.4); Platelet Count 266 T/CUMM (130-400); Red Blood Count 4.59 MC/CUMM (3.8-5.5); Red Cell Distribution Width 13.6 % (9.3-17.3)
[2017-05-18] MEDS ORDERED: ONDANSETRON 4 MG/2 ML VIAL ONE (13:15)
[2017-05-18] MEDS ORDERED: METOCLOPRAMIDE 10 MG/2 ML VIAL ONE (13:15)
[2017-05-18] MEDS ORDERED: NITROGLYCERIN 2% OINT 1 INCH/GM PACK TOP ONE (13:15)
--- NOTE | 2017-05-18 13:16 | CT Report ---
CT head/brain wo con INDICATION: Altered mental status/confusion The total DLP is 1136 mGy*cm. COMPARISON: None available Technique: Serial axial tomographic images of the brain were obtained without the use of intravenous contrast. Dose reduction: This CT exam was performed using one or more of the following dose reduction techniques: Automated exposure control, automated adjustment of the mA and/or KV according to patient size, or use of iterative reconstruction technique. Findings: The cortical sulcal pattern is generally symmetric and within normal limits in appearance bilaterally. There is no evidence of vascular territory infarct or acute intracranial hemorrhage. The graff-white matter differentiation is generally maintained. There is no hydrocephalus. The basilar cisterns are patent. The visualized paranasal sinuses, mastoid air cells and middle ear cavities are predominantly clear. The included orbits and their contents appear within normal limits. The visualized osseous structures and overlying soft tissues of the skull and face demonstrate no acute abnormality. IMPRESSION: No acute intracranial abnormality. PROCEDURE INTERPRETED AT [facility] DEPARTMENT OF RADIOLOGY Final Report Signed by: James Sosa
[2017-05-18 13:17] LABS: INR 1.2; PT Patient Result 12.7 SECS; Partial Thromboplastin Time 31.6 SECS (0-40)
--- NOTE | 2017-05-18 13:20 | XRay Report ---
Single view of the chest. Indication: Altered mental status. Comparison: April 21, 2017. The heart and mediastinal contours are unremarkable. The pulmonary vasculature is normal. There is no consolidation, pneumothorax, or pleural effusion. The osseous structures are unremarkable. Impression: No abnormality is seen. PROCEDURE INTERPRETED AT [facility] DEPARTMENT OF RADIOLOGY Final Report Signed by: Dr. Violeta Barnes
[2017-05-18 13:21] LABS: Alanine Aminotransferase 39 U/L (16-61); Albumin 4.2 G/DL (3.4-5.0); Alkaline Phosphatase 72 U/L (45-117); Aspartate Amino Transferase 15 U/L (0-37); Blood Urea Nitrogen 14 MG/DL (7-18); Calcium 9.1 MG/DL (8.5-10.1); Glucose 106 MG/DL (74-106); Osmolality,Calculated 277.5 MOS/KG (273-304); Potassium 3.5 MMOL/L (3.5-5.1); Sodium 139 MMOL/L (136-145); Total Protein 7.9 G/DL (6.4-8.3); Troponin I Only < 0.015 NG/ML (0.00-0.045)
[2017-05-18 14:47] LABS: Apearance,Urine CLEAR (Clear); Bilirubin,Urine Negative (Negative); Blood, Urine Large mg/dL (Negative); Glucose,Urine (UA) Negative (Negative); Ketones,Urine Negative (Negative); Mucus,Urine Occasional /LPF (Occasional); Nitrite,Urine Negative (Negative); Protein,Urine Negative; RBC,Urine 21 /HPF (0-4); Squamous Epithelial Cell,Urine Occasional /HPF (0-10); Urine Color Yellow (Yellow); Urine Specific Gravity 1.014 (1.001-1.035); WBC,Urine 5 /HPF (0-6)
[2017-05-18 14:56] LABS: Barbiturates Screen,Urine Negative (Negative); Benzodiazepines Screen,Urine Negative (Negative); Cannabinoid Screen,Urine Negative (Negative); Opiate Screen,Urine Negative (Negative); Phencyclidine Screen,Urine Negative (Negative)
--- NOTE | 2017-05-18 18:14 | Hospitalist History & Physical ---
Assessment and Plan - Time spent with patient Time spent with patient: Greater than 30 minutes (1) Right leg weakness Status: Acute Assessment and plan: nerve conduction study was done 04/27/17 and was normal, MRI was also done and shows nothing significant; mild DDD. Neuro cleared patient from neuor stand point and felt needed PT an OT for follow up. Will order PT and OT for evaluation. Current Visit: Yes (2) Chest pain Status: Acute Assessment and plan: Admit to monitored bed. Hospitalist service. Continue home medication. Consult cardiology(patient of Dr. Aguirre). Serial troponin. A.m. labs. IV fluids. Current Visit: No History of Present Illness Chief complaint: nausea, vomiting History of present illness: Mr. Winter is a 41 year old AA male admitted to [facility] ED for further evaluation of complaint of feeling nauseous and vomiting and then a brief moment of passing out that occurred about 2 hours prior to a. Patient verbalized not feeling "right" and complaint of right leg feeling numb and unable to move it. Patient verbalizes that right leg has been on and unable to move since last hospitalization. Patient states he had left-sided chest pain with some shortness of breath and began to sweat with nausea and vomiting afterwards with a several second spell of "passing out". Medical history hypertension, [place] February 2017, dyslipidemia. Surgical history: [place] with stent placement. Patient states Nitropaste has not helped he still feels the same chest pain throughout his chest that radiates down left shoulder left arm and right leg numbness. At time of ED presentation, the patient was assessed. Pulse rate 77, BP 113/70 , 100% sat on 2 L nasal cannula O2. Labs: WBC 4.0, hemoglobin 13.4, hematocrit 37.5, platelet 266, INR 1.2, PT 12.7, PTT 31.6, sodium 139, potassium 3.5, chloride 103, carbon dioxide 25, anion gap 14.5, BUN 14, creatinine 1.3, AST 15 , ALT 39, alkaline phosphatase 72, CK-MB less than 1, troponin less than 0.015, BNP 20. Urine toxicology negative. After brief discussion with Dr. Rios and Dr. Vidales is in agreement patient should be admitted for further evaluation. Consulting cardiology(patient of Dr. Aguirre). Medications will be reviewed and reconciliation to follow. Full CODE STATUS. Home Medications Medication Instructions Recorded Confirmed Type Nitroglycerin Sl Tab [Nitrostat] 0.4 mg SL Q5M PRN #50 tablet 03/03/17 05/18/17 Rx Prasugrel [Effient] 10 mg PO DAILY #30 tablet 04/14/17 05/18/17 Rx Sacubitril/Valsartan [Entresto 49 0.5 tablet PO BID #60 tablet 04/14/17 Rx mg-51 mg Tablet] Acetaminophen Tab [Tylenol Tab] 325 mg PO BID 05/18/17 05/18/17 History Aspirin EC Tab 81 mg PO DAILY 05/18/17 05/18/17 History Carvedilol [Coreg] 12.5 mg PO DAILY PRN 05/18/17 05/18/17 History Furosemide Tab [Lasix Tab] 40 mg PO DAILY 05/18/17 05/18/17 History Rivaroxaban [Xarelto] 20 mg PO DAILY 05/18/17 05/18/17 History Allergies Allergy/AdvReac Type Severity Reaction Status Date / Time No Known Allergies Allergy Unverified 04/21/17 19:08 Medical,Surgical,& Family Hx - Medical History Cardio: History of: Hypertension, [place] (February 2017) No history of: CAD Neurology: History of: Neurological Problems (right leg numbness) No history of: Seizures Endocrine: History of: Dyslipidemia - Surgical History Thoracic Surgeries: Patient denies;: Lobectomy Abdominal Surgeries: Patient denies: Abdominal Surgery - Family History Family History: Reports;: Family Heart Disease, Family Hypertension - Social History Smoking Status: Unknown if ever smoked Frequency of Alcohol Use: Unknown Type of Drug Use: Unknown Review of systems: ROS completed and pertinent positives and negatives in HPI. Exam - Constitutional Vitals: Period Temp Pulse Resp BP Sys/Aggarwal Pulse Ox Last 24 Hr 98.0 F-98.0 F 74-107 16-20 109-131/62-91 100-100 General appearance: normal weight - Head Head exam: Present: normal inspection - Eye Eye exam: Present: EOMI Pupils: Present: REGINA - Neck Neck exam: Present: normal inspection - Respiratory Respiratory exam: Present: clear to auscultation bilaterally - Cardiovascular Cardiovascular exam: Present: regular rate and rhythm - GI/Abdominal GI/Abdominal exam: Present: normal bowel sounds, soft. Absent: guarding, tenderness - Extremities Exam Extremities exam: Present: normal inspection, other (patient says he cant move right leg or wiggle toes, and it has been like that since previous admission) - Neurological Exam Neurological exam: Present: alert, oriented X3 - Psychiatric Psychiatric exam: Present: flat affect - Skin Skin exam: Present: normal color, warm, dry Results - Labs CBC & BMP: 05/18/17 12:48 05/18/17 12:48 Lab Results: I have reviewed the past 24 hour labs - Diagnostic Findings Procedure: Chest x-ray: report reviewed by me (No abnormalities seen), CT: report reviewed by me (No acute intracranial abnormality )
[2017-05-18] MEDS ORDERED: ACETAMINOPHEN 325 MG TABLET PO PRN (18:27)
[2017-05-18] MEDS: SODIUM CHLORIDE 0.9% 1,000 ML IV SCH (18:38)
[2017-05-18] MEDS ORDERED: CARVEDILOL 12.5 MG TABLET PO PRN (18:46)
[2017-05-18] MEDS ORDERED: NITROGLYCERIN SL 0.4 MG TABLET SL PRN (18:46)
[2017-05-18] MEDS: ONDANSETRON 4 MG/2 ML VIAL IV PRN (20:45)
[2017-05-18] MEDS: SACUBITRIL/VALSARTAN 49-51 MG TABLET PO SCH (20:46)
[2017-05-19 06:06] LABS: Basophils % 0.2 % (0.0-0.8); Eosinophils # 0.1 10*3/uL (0.0-0.87); Eosinophils % 2.1 % (0.00-10.9); Hematocrit 36.5 VOL% (42.0-52.0); Hemoglobin 12.4 GM/DL (14.0-18.0); Immature Granulocytes % 0.2 %; Immature Granulocytes Absolute 0.01 #; Lymphocytes # 1.7 10*3/uL (1.4-4.0); Lymphocytes % 40.1 % (21.2-54.2); Mean Corpuscular Hemoglobin 29 PG (27-34); Mean Corpuscular Volume 84.1 FL (87-102); Mean Platelet Volume 9.4 FL (9.6-12.0); Monocytes # 0.4 10*3/uL (0.11-0.8); Neutrophils # 2.1 10*3/uL (1.4-7.4); Neutrophils % 48.4 % (38.7-73.9); Platelet Count 254 T/CUMM (130-400); Red Blood Count 4.34 MC/CUMM (3.8-5.5); Red Cell Distribution Width 13.7 % (9.3-17.3); White Blood Count 4.3 T/CUMM (4-12)
[2017-05-19 06:36] LABS: Calcium 9.1 MG/DL (8.5-10.1); Magnesium 2.2 MG/DL (1.8-2.4); Osmolality,Calculated 282.1 MOS/KG (273-304); Potassium 3.8 MMOL/L (3.5-5.1)
[2017-05-19 06:42] LABS: Troponin I Only < 0.015 NG/ML (0.00-0.045)
--- NOTE | 2017-05-19 07:40 | EKG Report ---
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
--- NOTE | 2017-05-19 08:33 | Cardiology Consult Note ---
<Violeta Devine - Last Filed: 05/19/17 08:36> Assessment and Plan - Time spent with patient Time spent with patient: Greater than 30 minutes (1) Right leg weakness Status: Acute Assessment and plan: SEE PLAN OF CARE LISTED BELOW Current Visit: No (2) Vomiting Status: Acute Assessment and plan: SEE PLAN OF CARE LISTED BELOW Current Visit: Yes (3) Syncope Status: Acute Assessment and plan: SEE PLAN OF CARE LISTED BELOW Current Visit: Yes Qualifiers: Syncope type: heat syncope (4) Chest pain Status: Acute Assessment and plan: SEE PLAN OF CARE LISTED BELOW Current Visit: No (5) Coronary artery disease Status: Chronic Assessment and plan: SEE PLAN OF CARE LISTED BELOW Current Visit: No (6) Hyperlipidemia LDL goal <70 Status: Chronic Assessment and plan: SEE PLAN OF CARE LISTED BELOW Current Visit: No (7) Hypertension Status: Chronic Assessment and plan: SEE PLAN OF CARE LISTED BELOW Current Visit: No (8) Ischemic cardiomyopathy Status: Chronic Assessment and plan: SEE PLAN OF CARE LISTED BELOW Current Visit: No History of Present Illness - Data of Consult Patient: known to practice within the last 3 years Consult date: 05/19/17 - Consult Narrative History of present illness: 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 Aguirre Mr. Winter is a 41 year old male with a prior history of anterior septal myocardial infarction. He underwent cardiac catheterization February 24, [address] Gregg Aguirre. The LAD was totally occluded. The patient underwent intervention and AngioJet thrombectomy and stent placement. The patient never regained any flow in the LAD beyond this area even with a stent. He had high pressure large balloon inflation in the stent. He had very ectatic vessels. Again the patient never had reperfusion. He was subsequently placed on aspirin , low-dose Xarelto and Brilinta. Patient has a past medical history of coronary artery disease, hypertension, dyslipidemia and ischemic cardiomyopathy (echocardiogram April 2017 revealed improved ejection fraction, improved from 40 % to 50%). 04/21/17 patient presented to the emergency department with complaints of bilateral lower extremity weakness. He also had complaints of mild chest pain. EKG in the emergency department was concerning for ST elevation IN. Subsequently, STEMI alert was activated and patient was sent emergently to the catheterization lab. Dr. Martinez performed heart catheterization April 21, 2017 with the following impressions noted: RCA is large dominant ectatic vessel with less than 20% stenosis, Left main coronary is widely patent, Circumflex artery is a large vessel widely patent with luminal irregularities, LAD proximal is ectatic vessel and total mid occlusion that is chronic, no new disease in comparison to prior catheterization, this patient was not having a ST segment elevation myocardial infarction at that time. The LAD occlusion is chronic. Neurology and physical therapy were consulted for his intermittent, progressive leg weakness. Subsequently, patient underwent MRI of the lumbar spine and nerve conduction study. MRI of the lumbosacral spine revealed no significant pathology. It did however reveal mild degenerative disc disease. Nerve conduction study/EMG within normal limits. Per Dr. Duncan, differential diagnoses included lumbar radiculopathy or lumbosacral plexopathy versus functional element. Has was given crutches per PT prior to discharge home. He was last seen in the cardiology clinic May 06, 2017. He was still having complaints of leg weakness at that time and underwent JORGE LUIS. No significant right or left peripheral vascular disease was noted. He was also given Holter monitor. These results are currently pending. Follow-up appointment with Dr. Aguirre is scheduled June 03, 2017. Patient presented to [facility] yesterday with complaints of leg weakness, shortness of breath and chest discomfort. He reports that he actually had a syncopal episode after vomiting several times. Subsequently, his called the ambulance and he was transferred to the emergency department to be further evaluated. He reports that he has been having ongoing intermittent chest discomfort for several months. He just underwent repeat heart catheterization April 2017 for similar complaints which did not reveal any new coronary artery disease when compared to previous catheterization. He reports that his right leg became weak approximately 1 month after having his first catheterization February 2017. It is intermittent. He can only walk short distances without his leg feeling numb and becoming completely weak. He reports having multiple falls at home. Physical therapy has been working with him and he now has a cane and walker that he uses to ambulate at home. He describes his chest pain as a sharp pain located midsternally. He is unable to identify any specific alleviating or aggravating factors. Nonradiating. Associated with shortness of breath. Unable to rate his pain on a scale from 1- 10. He tells me that this comes and goes lasting approximately 2-3 minutes. Does not seem to be related to exertion as he is not active any longer. He denies fever, chills, cough, orthopnea, lower extremity edema and PND. Patient was seen and examined on 2 E. He is currently without chest pain, heaviness and tightness. Cardiac biomarkers have been negative 2 and EKG is unchanged. teletypesetter monitor has been reviewed and no dysrhythmias are noted. Upon exam, patient's chest pain is not reproducible to palpation. Patient has been complaining of intermittent chest pain now for several months. He has been in and out of the hospital several times and just recently underwent heart catheterization May 2017 which did not reveal any new disease in comparison to prior catheterization. His episodes of chest pain usually lasts approximately 2 -3 minutes and followed by an episode of fatigue and dyspnea. This could possibly be from dysrhythmia. Holter monitor was ordered at last cardiology appointment. These results are currently pending. I will ask Dr. Aguirre to read this study. Patient does have a total mid occlusion of the proximal LAD. However, this is chronic and most likely contributing to his chronic intermittent chest pain. Patient has been prescribed Ranexa. However, this was discontinued at last office visit as this did not help his chest discomfort. 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 Cardiac biomarkers have been negative 2 and EKG is unchanged. At this point, we will continue to cycle these in order to formally rule patient out for myocardial infarction. I will discuss further with Dr. Martinez and await his additional recommendations. ASSESSMENT / PLAN: 1. CHEST PAIN - Patient has been complaining of intermittent chest pain now for several months. He has been in and out of the hospital several times and just recently underwent heart catheterization May 2017 which did not reveal any new disease in comparison to prior catheterization. His episodes of chest pain usually lasts approximately 2-3 minutes and followed by an episode of fatigue and dyspnea. This could possibly be from dysrhythmia. Holter monitor was ordered at last cardiology appointment. These results are currently pending. I will ask Dr. Aguirre to read this study. Patient does have a total mid occlusion of the proximal LAD. However, this is chronic and most likely contributing to his chronic intermittent chest pain. Patient has been prescribed Ranexa. However, this was discontinued at last office visit as this did not help his chest discomfort. 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 Cardiac biomarkers have been negative 2 and EKG is unchanged. At this point, we will continue to cycle these in order to formally rule patient out for myocardial infarction. I will discuss further with Dr. Martinez and await his additional recommendations. 2. CORONARY ARTERY DISEASE - Patient does have a total mid occlusion to the proximal LAD. However, this is chronic. At this point, we will continue current plan of care with Effient, Xarelto, aspirin, lipid-lowering agent and beta alison. 3. ISCHEMIC CARDIOMYOPATHY - Ejection fraction 50% noted from recent echocardiogram, April 2017. Patient is on excellent medical regimen for ischemic cardiomyopathy. Continue current plan of care with beta alison, Entresto and spironolactone. 4. BILATERAL LOWER EXTREMITY WEAKNESS -patient reports bilateral lower extremity weakness. Right is significantly more weak than left. Patient was just worked up with MRI and nerve conduction study last admission. JORGE LUIS at last clinic visit did not reveal any peripheral vascular disease. At this point, nothing further to add. Will defer further management of this to attending. 5. HYPERTENSION - Continue current plan of care. Will adjust medications as needed throughout his hospital stay. 6. DYSLIPIDEMIA - Continue current plan of care with lipid lowering agent. 7. VOMITING - Defer management to attending. 8. SYNCOPE - Possible cardiac dysrhythmia. I will ask Dr. Aguirre to read patient's recent Holter monitor. Dr. Duncan has been consulted. Can consider ordering carotid ultrasound. CC: Colleen Haider MD - Home Medications and Allergies Home Medications: Home Medications Medication Instructions Recorded Confirmed Type Nitroglycerin Sl Tab [Nitrostat] 0.4 mg SL Q5M PRN #50 tablet 03/03/17 05/18/17 Rx Prasugrel [Effient] 10 mg PO DAILY #30 tablet 04/14/17 05/18/17 Rx Sacubitril/Valsartan [Entresto 49 0.5 tablet PO BID #60 tablet 04/14/17 Rx mg-51 mg Tablet] Acetaminophen Tab [Tylenol Tab] 325 mg PO BID 05/18/17 05/18/17 History Aspirin EC Tab 81 mg PO DAILY 05/18/17 05/18/17 History Carvedilol [Coreg] 12.5 mg PO DAILY PRN 05/18/17 05/18/17 History Furosemide Tab [Lasix Tab] 40 mg PO DAILY 05/18/17 05/18/17 History Rivaroxaban [Xarelto] 20 mg PO DAILY 05/18/17 05/18/17 History Escitalopram Oxalate 10 mg PO BEDTIME 05/19/17 05/19/17 History Spironolactone [Aldactone] 25 mg PO DAILY 05/19/17 05/19/17 History Allergies/Adverse Reactions: Allergies Allergy/AdvReac Type Severity Reaction Status Date / Time No Known Allergies Allergy Unverified 04/21/17 19:08 - Constitutional Constitutional: Present: fatigue, lethargy, malaise, weakness. Absent: chills, fever(s), weight gain, weight loss - Cardiovascular Cardiovascular: Present: chest pain at rest, dyspnea, lightheadedness, palpitations. Absent: claudication, diaphoresis, edema, radiating jaw, neck or arm pain, orthopnea, PND - Respiratory Respiratory: Present: dyspnea. Absent: dyspnea on exertion, wheezing, snoring, pain on inspiration, change in phlegm color - Gastrointestinal Gastrointestinal: Present: nausea, vomiting. Absent: melena - Neurological Neurological: Present: abnormal gait, focal weakness, frequent falls, numbness, paresthesias, syncope. Absent: abnormal speech, behavioral changes, dizziness - Psychiatric Psychiatric: Present: anxiety, depression Medical,Surgical,& Family Hx - Medical History Cardio: History of: CAD, Hypertension, IN (February 2017) Neurology: History of: Neurological Problems (right leg numbness) No history of: Seizures Endocrine: History of: Dyslipidemia Gastrointestinal: History of: GERD Musculoskeletal: History of: Back/Neck Problems (low back pain from fall) - Surgical History Cardiac Surgeries: Sugical HX of: Cardiac Catheterization Thoracic Surgeries: Patient denies;: Lobectomy Abdominal Surgeries: Patient denies: Abdominal Surgery - Family History Family History: Reports;: Family Heart Disease, Family Hypertension - Social History Smoking Status: Unknown if ever smoked Frequency of Alcohol Use: Unknown Type of Drug Use: Unknown Marital Status: Lives With:: Spouse Functional capacity: uses cane/walker Physical Examination Vital Signs Temp Pulse Resp BP Pulse Ox 98.0 F 107 H 16 130/86 100 05/18/17 12:31 05/18/17 12:31 05/18/17 12:31 05/18/17 12:31 05/18/17 12:31 Exam: General: Appears well with no apparent distress. Pleasant and cooperative. Appears comfortable. HEENT: PERRL, normocephalic, atraumatic. Mucous membranes moist. No jaundice noted. Conjunctiva moist and clear, sclerae anicteric Neck: No JVD/HJR, no thyromegaly or lymphadenopathy noted. No carotid bruit appreciated Cardiac: Regular rate and rhythm. No murmur rub or gallop. Lungs: Clear to auscultation without accessory muscle use to assist the respiratory pattern. Not requiring oxygen. Abdomen: Soft, bowel sounds normoactive. Nontender and nondistended. No abdominal bruit or thrill noted. No masses noted. Extremities: No clubbing, cyanosis noted. No edema noted. Upper extremity pulses 2+. Lower extremity pulses 2+. Capillary refill less than 3 seconds. Skin: No unusual lesions or rashes. No skin breakdown appreciated. Neuro: Awake, alert and oriented 3. Moves all extremities well without hemiparesis or paralysis. No essential tremor is appreciated. Result/EKG - Labs CBC & BMP: 05/19/17 05:34 05/19/17 05:34 Lab Results: I have reviewed the past 24 hour labs Labs: Laboratory Results - last 24 hr 05/18/17 05/18/17 05/18/17 12:48 12:48 12:48 WBC 4.0 RBC 4.59 Hgb 13.4 L Hct 37.5 L MCV 81.7 L MCH 29 MCHC 35.7 RDW 13.6 Plt Count 266 MPV 9.4 L Neut % (Auto) 48.0 Lymph % (Auto) 41.7 [place] % (Auto) 8.4 Eos % (Auto) 1.5 Baso % (Auto) 0.2 Neut # (Auto) 1.9 Lymph # (Auto) 1.7 [place] # (Auto) 0.3 Eos # (Auto) 0.1 Baso # (Auto) 0.0 Immature Gran % 0.2 Nucleated RBC % 0.0 Immature Gran # 0.01 Nucleated RBCs # 0.00 INR 1.2 PT Patient/Control Mix 12.7 Circ Anticoag PTT 31.6 D Sodium 139 Potassium 3.5 Chloride 103 Carbon Dioxide 25 Anion Gap 14.5 BUN 14 Creatinine 1.30 GFR Calculation 96 BUN/Creatinine Ratio 10.00 Glucose 106 Calculated Osmolality 277.5 Calcium 9.1 Magnesium Total Bilirubin 0.60 AST 15 ALT 39 Alkaline Phosphatase 72 Total Creatine Kinase CK-MB (CK-2) Troponin I B-Natriuretic Peptide Total Protein 7.9 Albumin 4.2 Globulin 3.7 H Albumin/Globulin Ratio 1.1 Urine Color Urine Appearance Urine pH Ur Specific Cinebar Urine Protein Urine Glucose (UA) Urine Ketones Urine Blood Urine Nitrate Urine Bilirubin Urine Urobilinogen Urine Leukocytes Urine RBC Urine WBC Ur Squamous Epith Cells Urine Mucus Ur Culture Indicated? Urine Opiates Screen Ur Barbiturates Screen Ur Phencyclidine Scrn U Amphetamine/Methamph U Benzodiazepines Scrn U Cocaine Metab Screen U Cannabinoids Screen Serum Alcohol < 15 L 05/18/17 05/18/17 05/18/17 12:48 12:48 14:35 WBC RBC Hgb Hct MCV MCH MCHC RDW Plt Count MPV Neut % (Auto) Lymph % (Auto) [place] % (Auto) Eos % (Auto) Baso % (Auto) Neut # (Auto) Lymph # (Auto) [place] # (Auto) Eos # (Auto) Baso # (Auto) Immature Gran % Nucleated RBC % Immature Gran # Nucleated RBCs # INR PT Patient/Control Mix Circ Anticoag PTT Sodium Potassium Chloride Carbon Dioxide Anion Gap BUN Creatinine GFR Calculation BUN/Creatinine Ratio Glucose Calculated Osmolality Calcium Magnesium Total Bilirubin AST ALT Alkaline Phosphatase Total Creatine Kinase 135 CK-MB (CK-2) < 1.0 Troponin I < 0.015 B-Natriuretic Peptide 20 Total Protein Albumin Globulin Albumin/Globulin Ratio Urine Color Yellow Urine Appearance Clear Urine pH 6.0 Ur Specific Cinebar 1.014 Urine Protein Negative Urine Glucose (UA) Negative Urine Ketones Negative Urine Blood Large Urine Nitrate Negative Urine Bilirubin Negative Urine Urobilinogen 4.0 H Urine Leukocytes Trace Urine RBC 21 Urine WBC 5 Ur Squamous Epith Cells Occasional Urine Mucus Occasional Ur Culture Indicated? Not indicated Urine Opiates Screen Ur Barbiturates Screen Ur Phencyclidine Scrn U Amphetamine/Methamph U Benzodiazepines Scrn U Cocaine Metab Screen U Cannabinoids Screen Serum Alcohol 05/18/17 05/19/17 05/19/17 14:35 05:34 05:34 WBC 4.3 RBC 4.34 Hgb 12.4 L Hct 36.5 L MCV 84.1 L MCH 29 MCHC 34.0 RDW 13.7 Plt Count 254 MPV 9.4 L Neut % (Auto) 48.4 Lymph % (Auto) 40.1 [place] % (Auto) 9.0 Eos % (Auto) 2.1 Baso % (Auto) 0.2 Neut # (Auto) 2.1 Lymph # (Auto) 1.7 [place] # (Auto) 0.4 Eos # (Auto) 0.1 Baso # (Auto) 0.0 Immature Gran % 0.2 Nucleated RBC % 0.0 Immature Gran # 0.01 Nucleated RBCs # 0.00 INR PT Patient/Control Mix Circ Anticoag PTT Sodium 142 Potassium 3.8 Chloride 104 Carbon Dioxide 29 Anion Gap 12.8 BUN 13 Creatinine 1.30 GFR Calculation 107 BUN/Creatinine Ratio 10.00 Glucose 100 Calculated Osmolality 282.1 Calcium 9.1 Magnesium 2.2 Total Bilirubin AST ALT Alkaline Phosphatase Total Creatine Kinase CK-MB (CK-2) Troponin I B-Natriuretic Peptide Total Protein Albumin Globulin Albumin/Globulin Ratio Urine Color Urine Appearance Urine pH Ur Specific Cinebar Urine Protein Urine Glucose (UA) Urine Ketones Urine Blood Urine Nitrate Urine Bilirubin Urine Urobilinogen Urine Leukocytes Urine RBC Urine WBC Ur Squamous Epith Cells Urine Mucus Ur Culture Indicated? Urine Opiates Screen Negative Ur Barbiturates Screen Negative Ur Phencyclidine Scrn Negative U Amphetamine/Methamph Negative U Benzodiazepines Scrn Negative U Cocaine Metab Screen Negative U Cannabinoids Screen Negative Serum Alcohol 05/19/17 05:34 WBC RBC Hgb Hct MCV MCH MCHC RDW Plt Count MPV Neut % (Auto) Lymph % (Auto) [place] % (Auto) Eos % (Auto) Baso % (Auto) Neut # (Auto) Lymph # (Auto) [place] # (Auto) Eos # (Auto) Baso # (Auto) Immature Gran % Nucleated RBC % Immature Gran # Nucleated RBCs # INR PT Patient/Control Mix Circ Anticoag PTT Sodium Potassium Chloride Carbon Dioxide Anion Gap BUN Creatinine GFR Calculation BUN/Creatinine Ratio Glucose Calculated Osmolality Calcium Magnesium Total Bilirubin AST ALT Alkaline Phosphatase Total Creatine Kinase 111 CK-MB (CK-2) < 1.0 Troponin I < 0.015 B-Natriuretic Peptide Total Protein Albumin Globulin Albumin/Globulin Ratio Urine Color Urine Appearance Urine pH Ur Specific Cinebar Urine Protein Urine Glucose (UA) Urine Ketones Urine Blood Urine Nitrate Urine Bilirubin Urine Urobilinogen Urine Leukocytes Urine RBC Urine WBC Ur Squamous Epith Cells Urine Mucus Ur Culture Indicated? Urine Opiates Screen Ur Barbiturates Screen Ur Phencyclidine Scrn U Amphetamine/Methamph U Benzodiazepines Scrn U Cocaine Metab Screen U Cannabinoids Screen Serum Alcohol <Collin Martinez - Last Filed: 05/19/17 12:10> History of Present Illness - Consult Narrative History of present illness: Mr. Winter is a 41 year old male who is followed by Dr. Aguirre as stated. I have also seen the patient within the past month and carried out catheterization. I have reviewed this chart as well as examined and interviewed the patient personally. I discussed this case with Violeta Devine PRODUCTION ADMINISTRATOR. This patient has coronary disease has occluded LAD which is not causing chest pain. He does not have other disease to account for his chest pain. His pain is chronic recurrent and noncardiac. He has been having some issues in which he would have some chest pain as well is GI complaints of having what he describes as a "bad bowel movement" and even nausea. This admission he had an episode of his chest pain and what appears to be very loose stool or diarrhea and nausea vomiting apparently had a syncopal spell that sounds to be a vasovagal event. He does not really sure if he had palpitations with this event or not. He describes some palpitations and recently has had a Holter from the office of which is not returned yet. Much of his symptoms sounds to be noncardiac certainly with his admission this time having an unchanged EKG and biomarkers being negative. He certainly probably needs further evaluation from a noncardiac standpoint even possibly GI. If indeed he has described palpitations that did not happen during his Holter then a event monitor would be appropriate at the time of discharge. We await neurology's evaluation as well as would consider GI evaluation. We will continue to monitor with you while in the hospital. CC: Colleen Haider MD Physical Examination Vital Signs Temp Pulse Resp BP Pulse Ox 98.0 F 107 H 16 130/86 100 05/18/17 12:31 05/18/17 12:31 05/18/17 12:31 05/18/17 12:31 05/18/17 12:31 Result/EKG - Labs CBC & BMP: 05/19/17 05:34 05/19/17 05:34 Labs: Laboratory Results - last 24 hr 05/18/17 05/18/17 05/18/17 12:48 12:48 12:48 WBC 4.0 RBC 4.59 Hgb 13.4 L Hct 37.5 L MCV 81.7 L MCH 29 MCHC 35.7 RDW 13.6 Plt Count 266 MPV 9.4 L Neut % (Auto) 48.0 Lymph % (Auto) 41.7 [place] % (Auto) 8.4 Eos % (Auto) 1.5 Baso % (Auto) 0.2 Neut # (Auto) 1.9 Lymph # (Auto) 1.7 [place] # (Auto) 0.3 Eos # (Auto) 0.1 Baso # (Auto) 0.0 Immature Gran % 0.2 Nucleated RBC % 0.0 Immature Gran # 0.01 Nucleated RBCs # 0.00 INR 1.2 PT Patient/Control Mix 12.7 Circ Anticoag PTT 31.6 D Sodium 139 Potassium 3.5 Chloride 103 Carbon Dioxide 25 Anion Gap 14.5 BUN 14 Creatinine 1.30 GFR Calculation 96 BUN/Creatinine Ratio 10.00 Glucose 106 Calculated Osmolality 277.5 Calcium 9.1 Magnesium Total Bilirubin 0.60 AST 15 ALT 39 Alkaline Phosphatase 72 Total Creatine Kinase CK-MB (CK-2) Troponin I B-Natriuretic Peptide Total Protein 7.9 Albumin 4.2 Globulin 3.7 H Albumin/Globulin Ratio 1.1 Urine Color Urine Appearance Urine pH Ur Specific Cinebar Urine Protein Urine Glucose (UA) Urine Ketones Urine Blood Urine Nitrate Urine Bilirubin Urine Urobilinogen Urine Leukocytes Urine RBC Urine WBC Ur Squamous Epith Cells Urine Mucus Ur Culture Indicated? Urine Opiates Screen Ur Barbiturates Screen Ur Phencyclidine Scrn U Amphetamine/Methamph U Benzodiazepines Scrn U Cocaine Metab Screen U Cannabinoids Screen Serum Alcohol < 15 L 05/18/17 05/18/17 05/18/17 12:48 12:48 14:35 WBC RBC Hgb Hct MCV MCH MCHC RDW Plt Count MPV Neut % (Auto) Lymph % (Auto) [place] % (Auto) Eos % (Auto) Baso % (Auto) Neut # (Auto) Lymph # (Auto) [place] # (Auto) Eos # (Auto) Baso # (Auto) Immature Gran % Nucleated RBC % Immature Gran # Nucleated RBCs # INR PT Patient/Control Mix Circ Anticoag PTT Sodium Potassium Chloride Carbon Dioxide Anion Gap BUN Creatinine GFR Calculation BUN/Creatinine Ratio Glucose Calculated Osmolality Calcium Magnesium Total Bilirubin AST ALT Alkaline Phosphatase Total Creatine Kinase 135 CK-MB (CK-2) < 1.0 Troponin I < 0.015 B-Natriuretic Peptide 20 Total Protein Albumin Globulin Albumin/Globulin Ratio Urine Color Yellow Urine Appearance Clear Urine pH 6.0 Ur Specific [place]inebar 1.014 Urine Protein Negative Urine Glucose (UA) Negative Urine Ketones Negative Urine Blood Large Urine Nitrate Negative Urine Bilirubin Negative Urine Urobilinogen 4.0 H Urine Leukocytes Trace Urine RBC 21 Urine WBC 5 Ur Squamous Epith Cells Occasional Urine Mucus Occasional Ur Culture Indicated? Not indicated Urine Opiates Screen Ur Barbiturates Screen Ur Phencyclidine Scrn U Amphetamine/Methamph U Benzodiazepines Scrn U Cocaine Metab Screen U Cannabinoids Screen Serum Alcohol 05/18/17 05/19/17 05/19/17 14:35 05:34 05:34 WBC 4.3 RBC 4.34 Hgb 12.4 L Hct 36.5 L MCV 84.1 L MCH 29 MCHC 34.0 RDW 13.7 Plt Count 254 MPV 9.4 L Neut % (Auto) 48.4 Lymph % (Auto) 40.1 [place] % (Auto) 9.0 Eos % (Auto) 2.1 Baso % (Auto) 0.2 Neut # (Auto) 2.1 Lymph # (Auto) 1.7 [place] # (Auto) 0.4 Eos # (Auto) 0.1 Baso # (Auto) 0.0 Immature Gran % 0.2 Nucleated RBC % 0.0 Immature Gran # 0.01 Nucleated RBCs # 0.00 INR PT Patient/Control Mix Circ Anticoag PTT Sodium 142 Potassium 3.8 Chloride 104 Carbon Dioxide 29 Anion Gap 12.8 BUN 13 Creatinine 1.30 GFR Calculation 107 BUN/Creatinine Ratio 10.00 Glucose 100 Calculated Osmolality 282.1 Calcium 9.1 Magnesium 2.2 Total Bilirubin AST ALT Alkaline Phosphatase Total Creatine Kinase CK-MB (CK-2) Troponin I B-Natriuretic Peptide Total Protein Albumin Globulin Albumin/Globulin Ratio Urine Color Urine Appearance Urine pH Ur Specific [place]inebar Urine Protein Urine Glucose (UA) Urine Ketones Urine Blood Urine Nitrate Urine Bilirubin Urine Urobilinogen Urine Leukocytes Urine RBC Urine WBC Ur Squamous Epith Cells Urine Mucus Ur Culture Indicated? Urine Opiates Screen Negative Ur Barbiturates Screen Negative Ur Phencyclidine Scrn Negative U Amphetamine/Methamph Negative U Benzodiazepines Scrn Negative U Cocaine Metab Screen Negative U Cannabinoids Screen Negative Serum Alcohol 05/19/17 05:34 WBC RBC Hgb Hct MCV MCH MCHC RDW Plt Count MPV Neut % (Auto) Lymph % (Auto) [place] % (Auto) Eos % (Auto) Baso % (Auto) Neut # (Auto) Lymph # (Auto) [place] # (Auto) Eos # (Auto) Baso # (Auto) Immature Gran % Nucleated RBC % Immature Gran # Nucleated RBCs # INR PT Patient/Control Mix Circ Anticoag PTT Sodium Potassium Chloride Carbon Dioxide Anion Gap BUN Creatinine GFR Calculation BUN/Creatinine Ratio Glucose Calculated Osmolality Calcium Magnesium Total Bilirubin AST ALT Alkaline Phosphatase Total Creatine Kinase 111 CK-MB (CK-2) < 1.0 Troponin I < 0.015 B-Natriuretic Peptide Total Protein Albumin Globulin Albumin/Globulin Ratio Urine Color Urine Appearance Urine pH Ur Specific [place] Urine Protein Urine Glucose (UA) Urine Ketones Urine Blood Urine Nitrate Urine Bilirubin Urine Urobilinogen Urine Leukocytes Urine RBC Urine WBC Ur Squamous Epith Cells Urine Mucus Ur Culture Indicated? Urine Opiates Screen Ur Barbiturates Screen Ur Phencyclidine Scrn U Amphetamine/Methamph U Benzodiazepines Scrn U Cocaine Metab Screen U Cannabinoids Screen Serum Alcohol
[2017-05-19] MEDS: PANTOPRAZOLE 40 MG TABLET PO SCH (10:18)
[2017-05-19] MEDS: SACUBITRIL/VALSARTAN 49-51 MG TABLET PO SCH ×2 (10:18→21:10)
[2017-05-19] MEDS: FUROSEMIDE 40 MG TABLET PO SCH ×2 (10:19→10:22)
[2017-05-19] MEDS: ASPIRIN EC 81 MG TABLET PO SCH (10:19)
[2017-05-19] MEDS: RIVAROXABAN 20 MG TABLET PO SCH (10:19)
[2017-05-19] MEDS: PRASUGREL 10 MG TABLET PO SCH (10:19)
--- NOTE | 2017-05-19 10:55 | EKG Report ---
Stationary ECG Study 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
[2017-05-19] MEDS: SODIUM CHLORIDE 0.9% 1,000 ML IV SCH ×2 (12:03→21:16)
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
[2017-05-19 15:04] LABS: Troponin I Only < 0.015 NG/ML (0.00-0.045)
--- NOTE | 2017-05-19 16:07 | Neurology Consult Note ---
History of Present Illness History of present illness: Mr. Winter is a 41 year old right-handed -Nepalese gentleman with past medical history significant for NH in February 2017, hypertension, dyslipidemia, status post cardiac stenting admitted [facility] ED for further evaluation of complaint of feeling nauseous and vomiting and then a brief moment of passing out that occurred about 2 hours prior to admission. Patient verbalized not feeling "right" and complaint of right leg feeling numb and unable to move it. However this is not something new. This is been going on for a while and I have worked him up as an outpatient in detail but could not come up with any explanation. He can get up and walk but he limps on the right leg. He reported that it hurts when he walks. Patient states he had left-sided chest pain with some shortness of breath and began to sweat with nausea and vomiting afterwards with a several second spell of "passing out". Patient is quite frustrated that he has not received any answers or explanation of his symptoms. Past workup included MRI of the LS spine which was unremarkable. Nerve conduction study/EMG was completely unremarkable. It was recommended for him to continue outpatient therapy which he seems to think that has not helped much. Home Medications Medication Instructions Recorded Confirmed Type Nitroglycerin Sl Tab [Nitrostat] 0.4 mg SL Q5M PRN #50 tablet 03/03/17 05/18/17 Rx Prasugrel [Effient] 10 mg PO DAILY #30 tablet 04/14/17 05/18/17 Rx Sacubitril/Valsartan [Entresto 49 0.5 tablet PO BID #60 tablet 04/14/17 Rx mg-51 mg Tablet] Acetaminophen Tab [Tylenol Tab] 325 mg PO BID 05/18/17 05/18/17 History Aspirin EC Tab 81 mg PO DAILY 05/18/17 05/18/17 History Carvedilol [Coreg] 12.5 mg PO DAILY PRN 05/18/17 05/18/17 History Furosemide Tab [Lasix Tab] 40 mg PO DAILY 05/18/17 05/18/17 History Rivaroxaban [Xarelto] 20 mg PO DAILY 05/18/17 05/18/17 History Escitalopram Oxalate 10 mg PO BEDTIME 05/19/17 05/19/17 History Spironolactone [Aldactone] 25 mg PO DAILY 05/19/17 05/19/17 History Allergies Allergy/AdvReac Type Severity Reaction Status Date / Time No Known Allergies Allergy Unverified 04/21/17 19:08 12 point system: reviewed and no additional remarkable complaints except as stated Medical,Surgical,& Family Hx - Medical History Cardio: History of: CAD, Hypertension, NH (February 2017) Neurology: History of: Neurological Problems (right leg numbness) No history of: Seizures Endocrine: History of: Dyslipidemia Gastrointestinal: History of: GERD Musculoskeletal: History of: Back/Neck Problems (low back pain from fall) - Surgical History Cardiac Surgeries: Sugical HX of: Cardiac Catheterization Thoracic Surgeries: Patient denies;: Lobectomy Abdominal Surgeries: Patient denies: Abdominal Surgery - Family History Family History: Reports;: Family Heart Disease, Family Hypertension - Social History Smoking Status: Unknown if ever smoked Frequency of Alcohol Use: Unknown Type of Drug Use: Unknown Exam - Constitutional Vitals: Period Temp Pulse Resp BP Sys/Aggarwal Pulse Ox Last 24 Hr 97.1 F-98.2 F 71-95 16-20 107-129/64-97 98-100 Exam: GENERAL: Patient is in no acute distress. NECK: Neck is supple. There is no JVD. No carotid bruits present. No thyroid masses. CVS: First and second heart sounds are normal. There is no S3 present. Regular rate and rhythm. RESPIRATORY: Lungs are clear to auscultation without any rales or rhonchi. ABDOMEN: Soft and non-tender. Bowel sounds are present. There is no hepatosplenomegaly. EXT: There is no palpable edema. Peripheral pulses are present. Skin: No rashes Central Nervous system: General: Alert, awake and Oriented x 3 Speech: Fluent Comprehension: Intact and normal Facial expressions: Normal Cranial Nerves: CN1/Olfactory: Normal CN II/ Optic: Normal, Visual Kaplan unreliable CN III, and : REGINA & EOMI CN V: Normal & intact CN VII: face is symmetric CNVIII: Normal CN XI/X/XI/XII: Intact and Normal Motor: Bulk and Tone is normal. Strength in the right leg/lower extreme 4/5 Strength in the left 5/5 Sensory: Grossly intact for all the modalities of PP, LT and temp sense Reflexes: 2+ and symmetrical Cerebellar function: Normal finger to nose and heel to meyer testing. Toes: Equivocal Gait: Able to get up and walk without assistance. He is limping when he walks though. Results - Labs CBC & BMP: 05/19/17 05:34 05/19/17 05:34 Assessment and Plan (1) Right leg weakness Status: Acute Assessment and plan: Etiology is absolutely not clear. All the workup has been negative. Recommend continue physical therapy Recommend to schedule appointment with [facility] neuromuscular department for further evaluation Thank you for the consult Current Visit: Yes Specialty Discharge - Follow Up or Referrals Follow up with: Rob Duncan MD [Physician] - (Please make a follow up with [facility] for neurology department)
[2017-05-19 18:10] LABS: Folate 9.4 NG/ML (5.4-24.0); Vitamin B12 341 PG/ML (211-911)
[2017-05-19] MEDS ORDERED: ROSUVASTATIN 20 MG TABLET PO SCH (21:00)
[2017-05-20 06:35] LABS: Basophils % 0.3 % (0.0-0.8); Eosinophils # 0.1 10*3/uL (0.0-0.87); Hematocrit 34.5 VOL% (42.0-52.0); Hemoglobin 11.8 GM/DL (14.0-18.0); Immature Granulocytes % 0.3 %; Immature Granulocytes Absolute 0.01 #; Lymphocytes # 1.5 10*3/uL (1.4-4.0); Lymphocytes % 38.8 % (21.2-54.2); Mean Corpuscular HGB Conc 34.2 GM/DL (32-36); Mean Corpuscular Hemoglobin 28 PG (27-34); Mean Corpuscular Volume 83.1 FL (87-102); Mean Platelet Volume 9.5 FL (9.6-12.0); Monocytes # 0.4 10*3/uL (0.11-0.8); Monocytes % 10.4 % (1.7-12.7); Neutrophils # 1.9 10*3/uL (1.4-7.4); Neutrophils % 48.2 % (38.7-73.9); Platelet Count 231 T/CUMM (130-400); Red Blood Count 4.15 MC/CUMM (3.8-5.5); Red Cell Distribution Width 13.5 % (9.3-17.3); White Blood Count 3.9 T/CUMM (4-12)
[2017-05-20] MEDS: ONDANSETRON 4 MG/2 ML VIAL IV PRN (06:50)
[2017-05-20 07:00] LABS: Calcium 8.3 MG/DL (8.5-10.1); Magnesium 2.2 MG/DL (1.8-2.4); Osmolality,Calculated 275.5 MOS/KG (273-304); Potassium 4.2 MMOL/L (3.5-5.1)
[2017-05-20 07:19] LABS: Apearance,Urine CLEAR (Clear); Bilirubin,Urine Negative (Negative); Blood, Urine Negative (Negative); Glucose,Urine (UA) Negative (Negative); Ketones,Urine Negative (Negative); Mucus,Urine Occasional /LPF (Occasional); Nitrite,Urine Negative (Negative); Protein,Urine Negative; RBC,Urine 1 /HPF (0-4); Squamous Epithelial Cell,Urine Occasional /HPF (0-10); Urine Color Yellow (Yellow); Urine Specific Gravity 1.012 (1.001-1.035); WBC,Urine 11 /HPF (0-6)
--- NOTE | 2017-05-20 07:31 | EKG Report ---
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
[2017-05-20] MEDS ORDERED: SPIRONOLACTONE 25 MG TABLET PO SCH (09:00)
--- NOTE | 2017-05-20 10:52 | Cardiology Progress Note ---
Herb Muniz April RN, am scribing for, and in the presence of, Collin Martinez MD 10:48. Assessment and Plan (1) Right leg weakness Status: Acute Assessment and plan: Noncardiac and nonvascular. Current Visit: Yes (2) Syncope Status: Acute Assessment and plan: Etiology of this is unclear and questionable cardiac. Certainly much of this sounds to be vasovagal and may be associated with this acute recurrent GI issues.. Current Visit: Yes Qualifiers: Syncope type: heat syncope (3) Vomiting Status: Acute Assessment and plan: Prior associated with some recurrent GI issue that he has been having. Current Visit: Yes (4) Chest pain Status: Chronic Assessment and plan: This pain is noncardiac. Current Visit: Yes (5) Coronary artery disease Status: Chronic Assessment and plan: This is stable. He is a total occluded LAD. Current Visit: Yes (6) Dyslipidemia Status: Chronic Assessment and plan: Continue his statin drugs. Current Visit: Yes (7) Hypertension Status: Chronic Assessment and plan: Blood pressure stable continue his present medications. Current Visit: Yes (8) Ischemic cardiomyopathy Status: Chronic Assessment and plan: This is clinically stable. 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 Aguirre SUMMARY: Mr. Winter is a 41 year old male with a prior history of anterior septal myocardial infarction. He underwent cardiac catheterization February 24, [address] Gregg Aguirre. The LAD was totally occluded. The patient underwent intervention and AngioJet thrombectomy and stent placement. The patient never regained any flow in the LAD beyond this area even with a stent. He had high pressure large balloon inflation in the stent. He had very ectatic vessels. Again the patient never had reperfusion. He was subsequently placed on aspirin, low-dose Xarelto and Brilinta. Patient has a past medical history of coronary artery disease, hypertension, dyslipidemia and ischemic cardiomyopathy (echocardiogram April 2017 revealed improved ejection fraction, improved from 40% to 50%). 04/21/17 patient presented to the emergency department with complaints of bilateral lower extremity weakness. He also had complaints of mild chest pain. EKG in the emergency department was concerning for ST elevation ME. Subsequently, STEMI alert was activated and patient was sent emergently to the catheterization lab. Dr. Martinez performed heart catheterization April 21, 2017 with the following impressions noted: RCA is large dominant ectatic vessel with less than 20% stenosis, Left main coronary is widely patent, Circumflex artery is a large vessel widely patent with luminal irregularities, LAD proximal is ectatic vessel and total mid occlusion that is chronic, no new disease in comparison to prior catheterization, this patient was not having a ST segment elevation myocardial infarction at that time. The LAD occlusion is chronic. Neurology and physical therapy were consulted for his intermittent, progressive leg weakness. Subsequently, patient underwent MRI of the lumbar spine and nerve conduction study. MRI of the lumbosacral spine revealed no significant pathology. It did however reveal mild degenerative disc disease. Nerve conduction study/EMG within normal limits. Per Dr. Duncan, differential diagnoses included lumbar radiculopathy or lumbosacral plexopathy versus functional element. Has was given crutches per PT prior to discharge home. He was last seen in the cardiology clinic May 06, 2017. He was still having complaints of leg weakness at that time and underwent JORGE LUIS. No significant right or left peripheral vascular disease was noted. Follow-up appointment with Dr. Aguirre is scheduled June 03, 2017. Patient presented to [facility] May 18 with complaints of leg weakness, shortness of breath and chest discomfort. He reports that he actually had a syncopal episode after vomiting several times. Subsequently, his called the ambulance and he was transferred to the emergency department to be further evaluated. He reports that he has been having ongoing intermittent chest discomfort for several months. He just underwent repeat heart catheterization April 2017 for similar complaints which did not reveal any new coronary artery disease when compared to previous catheterization. He reports that his right leg became weak approximately 1 month after having his first catheterization February 2017. It is intermittent. He can only walk short distances without his leg feeling numb and becoming completely weak. He reports having multiple falls at home. Physical therapy has been working with him and he now has a cane and walker that he uses to ambulate at home. He describes his chest pain as a sharp pain located midsternally. He is unable to identify any specific alleviating or aggravating factors. Nonradiating. Associated with shortness of breath. Unable to rate his pain on a scale from 1- 10. He tells me that this comes and goes lasting approximately 2-3 minutes. Does not seem to be related to exertion as he is not active any longer. He denies fever, chills, cough, orthopnea, lower extremity edema and PND. May 20, 2017: Mr. Winter is seen sleeping in bed, he arouses easily. He reports he was given pain medicine this morning for chest pain and nausea and this is really the pain. Holter monitor did not Dr. Aguirre's office was without dysrhythmia or significant ectopy in fact no PACs or PVCs despite having multiple episodes of his typical chest pain while wearing the device. He had no palpitations that he does complain of rarely during the device. There may need to be a consideration for a 30 day monitor but this can be followed up with Dr. Aguirre. Vital signs been stable. Labs are unremarkable. He is doing well from a cardiac standpoint. We will sign off at this time, but let us know if we can be of further assistance while he is admitted to the hospital. He will keep his follow-up scheduled with Dr. Aguirre later this month who can reevaluate the need for 30 day monitor. The patient personally interviewed and examined by me and chart reviewed. The patient history is as above. He certainly is not having any cardiac symptomatology at this time. His chest pain is atypical and noncardiac. He does have these rare palpitations as we have discussed above that may require a 30 day monitor. This can be follow-up with Dr. Aguirre as an outpatient. This time we will sign off since his symptomatology is noncardiac in this is stable. We can be further service please feel free to call. Exam (Progress Note) - Constitutional Vitals: Period Temp Pulse Resp BP Sys/Aggarwal Pulse Ox Last 24 Hr 97.0 F-98.1 F 75-93 18-20 117-137/63-77 97-99 Exam: General: Appears well with no apparent distress. Pleasant and cooperative. Appears comfortable. HEENT: PERRL, normocephalic, atraumatic. Mucous membranes moist. No jaundice noted. Conjunctiva moist and clear, sclerae anicteric Neck: No JVD/HJR, no thyromegaly or lymphadenopathy noted. No carotid bruit appreciated Cardiac: Regular rate and rhythm. No murmur rub or gallop. Lungs: Clear to auscultation without accessory muscle use to assist the respiratory pattern. Not requiring oxygen. Abdomen: Soft, bowel sounds normoactive. Nontender and nondistended. No abdominal bruit or thrill noted. No masses noted. Extremities: No clubbing, cyanosis noted. No edema noted. Upper extremity pulses 2+. Lower extremity pulses 2+. Capillary refill less than 3 seconds. Skin: No unusual lesions or rashes. No skin breakdown appreciated. Neuro: Awake, alert and oriented 3. Moves all extremities well without hemiparesis or paralysis. No essential tremor is appreciated. Result/EKG - Labs CBC & BMP: 05/20/17 05:39 05/20/17 05:39 Lab Results: I have reviewed the past 24 hour labs Labs: Laboratory Results - last 24 hr 05/19/17 05/19/17 05/20/17 13:40 13:50 05:39 WBC 3.9 L RBC 4.15 Hgb 11.8 L Hct 34.5 L MCV 83.1 L MCH 28 MCHC 34.2 RDW 13.5 Plt Count 231 MPV 9.5 L Neut % (Auto) 48.2 Lymph % (Auto) 38.8 [place] % (Auto) 10.4 Eos % (Auto) 2.0 Baso % (Auto) 0.3 Neut # (Auto) 1.9 Lymph # (Auto) 1.5 [place] # (Auto) 0.4 Eos # (Auto) 0.1 Baso # (Auto) 0.0 Immature Gran % 0.3 Nucleated RBC % 0.0 Immature Gran # 0.01 Nucleated RBCs # 0.00 Sodium Potassium Chloride Carbon Dioxide Anion Gap BUN Creatinine GFR Calculation BUN/Creatinine Ratio Glucose Calculated Osmolality Calcium Magnesium Total Creatine Kinase 118 CK-MB (CK-2) < 1.0 Troponin I < 0.015 Vitamin B12 341 Folate 9.4 Urine Color Urine Appearance Urine pH Ur Specific [place] Urine Protein Urine Glucose (UA) Urine Ketones Urine Blood Urine Nitrate Urine Bilirubin Urine Urobilinogen Urine Leukocytes Urine RBC Urine WBC Ur Squamous Epith Cells Urine Mucus Ur Culture Indicated? TEO Screen Negative (<1:160) 05/20/17 05/20/17 05:39 06:39 WBC RBC Hgb Hct MCV MCH MCHC RDW Plt Count MPV Neut % (Auto) Lymph % (Auto) [place] % (Auto) Eos % (Auto) Baso % (Auto) Neut # (Auto) Lymph # (Auto) [place] # (Auto) Eos # (Auto) Baso # (Auto) Immature Gran % Nucleated RBC % Immature Gran # Nucleated RBCs # Sodium 139 Potassium 4.2 Chloride 105 Carbon Dioxide 29 Anion Gap 9.2 BUN 10 Creatinine 1.00 GFR Calculation 147 BUN/Creatinine Ratio 10.00 Glucose 92 Calculated Osmolality 275.5 Calcium 8.3 L Magnesium 2.2 Total Creatine Kinase CK-MB (CK-2) Troponin I Vitamin B12 Folate Urine Color Yellow Urine Appearance Clear Urine pH 6.0 Ur Specific [place] 1.012 Urine Protein Negative Urine Glucose (UA) Negative Urine Ketones Negative Urine Blood Negative Urine Nitrate Negative Urine Bilirubin Negative Urine Urobilinogen 2.0 H Urine Leukocytes Trace Urine RBC 1 Urine WBC 11 Ur Squamous Epith Cells Occasional Urine Mucus Occasional Ur Culture Indicated? Results to follow TEO Screen - EKG EKG results: interpreted by me EKG shows: sinus rhythm Specialty Discharge - Follow Up or Referrals Follow up with: Rob Duncan MD [Physician] - (Please make a follow up with [facility] for neurology department) I, Collin Martinez MD, personally performed the services described in this documentation, ascribed by Portia Estevez RN in my presence, and it is both accurate and complete .
[2017-05-20 11:51] VITALS: BP 122/73
--- NOTE | 2017-05-20 13:42 | Discharge Summary ---
Hospital Course - Hospital Course Hospital Course: Mr. Winter is a 41 year old AA male admitted to [facility] ED for further evaluation of complaint of feeling nauseous and vomiting and then a brief moment of passing out that occurred about 2 hours prior to admission. Patient verbalized not feeling "right" and complaint of right leg feeling numb and unable to move it. This has been an ongoing problem since before his last hospitalization. He had been extensively worked up by neurology, including MRI of spine and nerve conduction study/EMG, which were unremarkable. On presentation, patient was also complaining of left-sided chest pain with some shortness of breath and began to sweat with nausea and vomiting afterwards with a several second spell of "passing out". Patient stated that Nitropaste did not help. He still felt the same chest pain throughout his chest that radiates down left shoulder left arm and right leg numbness.This has also been an ongoing problem since his recent MT, with an extensive work-up by cardiology. Medical history hypertension, MT February 2017 (s/p stent placement). At time of ED presentation: Pulse rate 77, BP 113/70, 100% sat on 2 L nasal cannula O2. Labs: WBC 4.0, hemoglobin 13.4, hematocrit 37.5, platelet 266, INR 1.2, PT 12.7, PTT 31.6, sodium 139, potassium 3.5, chloride 103, carbon dioxide 25, anion gap 14.5, BUN 14, creatinine 1.3, AST 15, ALT 39, alkaline phosphatase 72, CK-MB less than 1, troponin less than 0.015, BNP 20. Urine toxicology negative. He was admitted to the hospitalist service for further evaluation. Cardiology was consulted. ACS work-up was negative. His chest pain was determined to be muscular. Before admission patient was wearing a holter monitor, which did not show any troubling findings although the patient was having this chest pain while wearing it. Neurology was also consulted, recommend outpatient neuromuscular evaluation at [facility]. During admission patient participated in physical therapy and was able to ambulate well with a walker. He has now reached maximal benefit of inpatient stay and will be discharged home. 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 - Time spent with patient Time with patient DS: Less than 30 minutes (25) Diagnosis - Discharge Diagnosis (1) Right leg weakness Status: Chronic (2) Syncope Status: Chronic (3) Atypical chest pain Status: Chronic Specialty Discharge - Follow Up or Referrals Follow up with: Rob Duncan MD [Physician] - (Please make a follow up with [facility] for neurology department) Discharge Plan - Discharge Data Disposition: Disch To Home/Self Care Condition at Discharge: Stable Discharge Diet: heart healthy Activity: increase activity as tolerated Hygiene: no restrictions Weight Bearing at Discharge: weight bear as tolerated Driving: not until seen by doctor Contact your physician if you experience:: fever over 101, Shortness of breath - Discharge Medications New Meloxicam 7.5 mg PO DAILY #30 tablet Rosuvastatin [Crestor] 20 mg PO BEDTIME #30 tablet Continue Nitroglycerin Sl Tab [Nitrostat] 0.4 mg SL Q5M PRN #50 tablet PRN Reason: Chest Pain Prasugrel [Effient] 10 mg PO DAILY #30 tablet Sacubitril/Valsartan [Entresto 49 mg-51 mg Tablet] 0.5 tablet PO BID #60 tablet Rivaroxaban [Xarelto] 20 mg PO DAILY Acetaminophen Tab [Tylenol Tab] 325 mg PO BID Carvedilol [Coreg] 12.5 mg PO DAILY PRN PRN Reason: Blood Pressure-Increased Escitalopram Oxalate 10 mg PO BEDTIME Spironolactone [Aldactone] 25 mg PO DAILY Aspirin EC Tab 81 mg PO DAILY Discontinued Furosemide Tab [Lasix Tab] 40 mg PO DAILY - Follow Up or Referral Follow Up: Rob Duncan MD [Physician] - (Please make a follow up with [facility] for neurology department) - Forms/Instructions Exam - Constitutional Vitals: Period Temp Pulse Resp BP Sys/Aggarwal Pulse Ox Last 24 Hr 97.0 F-98.1 F 75-93 18-20 117-137/63-77 96-99 General appearance: over weight - Head Head exam: Present: normocephalic, atraumatic - Eye Eye exam: Present: EOMI Pupils: Present: REGINA - ENT ENT exam: Present: normal exam - Neck Neck exam: Present: normal inspection - Respiratory Respiratory exam: Present: clear to auscultation bilaterally. Absent: rhonchi, wheezes - Cardiovascular Cardiovascular exam: Present: regular rate and rhythm - GI/Abdominal GI/Abdominal exam: Present: normal bowel sounds, soft. Absent: tenderness, rebound - Extremities Exam Extremities exam: Present: normal inspection - Back Exam Back exam: Present: normal inspection - Neurological Exam Neurological exam: Present: alert, oriented X3 - Psychiatric Psychiatric exam: Present: normal affect, normal mood - Skin Skin exam: Present: warm, intact Discharge Results Procedures and tests throughout hospitalization: Pending Orders 05/20/17 Urine Culture Routine 05/21/17 04:00 BMP w/ Mg [Basic Metabolic Panel w/Mg] IN AM CBC [Comp Blood Count Auto Diff] IN AM 05/22/17 04:00 BMP w/ Mg [Basic Metabolic Panel w/Mg] IN AM CBC [Comp Blood Count Auto Diff] IN AM Labs on day of discharge: Labs from last 24 hours 05/20/17 05/20/17 05/20/17 06:39 05:39 05:39 WBC 3.9 L RBC 4.15 Hgb 11.8 L Hct 34.5 L MCV 83.1 L MCH 28 MCHC 34.2 RDW 13.5 Plt Count 231 MPV 9.5 L Neut % (Auto) 48.2 Lymph % (Auto) 38.8 O'Brien % (Auto) 10.4 Eos % (Auto) 2.0 Baso % (Auto) 0.3 Neut # (Auto) 1.9 Lymph # (Auto) 1.5 O'Brien # (Auto) 0.4 Eos # (Auto) 0.1 Baso # (Auto) 0.0 Immature Gran % 0.3 Nucleated RBC % 0.0 Immature Gran # 0.01 Nucleated RBCs # 0.00 Sodium 139 Potassium 4.2 Chloride 105 Carbon Dioxide 29 Anion Gap 9.2 BUN 10 Creatinine 1.00 GFR Calculation 147 BUN/Creatinine Ratio 10.00 Glucose 92 Calculated Osmolality 275.5 Calcium 8.3 L Magnesium 2.2 Total Creatine Kinase CK-MB (CK-2) Troponin I Vitamin B12 Folate Urine Color Yellow Urine Appearance Clear Urine pH 6.0 Ur Specific Florence 1.012 Urine Protein Negative Urine Glucose (UA) Negative Urine Ketones Negative Urine Blood Negative Urine Nitrate Negative Urine Bilirubin Negative Urine Urobilinogen 2.0 H Urine Leukocytes Trace Urine RBC 1 Urine WBC 11 Ur Squamous Epith Cells Occasional Urine Mucus Occasional Ur Culture Indicated? Results to follow TEO Screen 05/19/17 05/19/17 13:50 13:40 WBC RBC Hgb Hct MCV MCH MCHC RDW Plt Count MPV Neut % (Auto) Lymph % (Auto) O'Brien % (Auto) Eos % (Auto) Baso % (Auto) Neut # (Auto) Lymph # (Auto) O'Brien # (Auto) Eos # (Auto) Baso # (Auto) Immature Gran % Nucleated RBC % Immature Gran # Nucleated RBCs # Sodium Potassium Chloride Carbon Dioxide Anion Gap BUN Creatinine GFR Calculation BUN/Creatinine Ratio Glucose Calculated Osmolality Calcium Magnesium Total Creatine Kinase 118 CK-MB (CK-2) < 1.0 Troponin I < 0.015 Vitamin B12 341 Folate 9.4 Urine Color Urine Appearance Urine pH Ur Specific Florence Urine Protein Urine Glucose (UA) Urine Ketones Urine Blood Urine Nitrate Urine Bilirubin Urine Urobilinogen Urine Leukocytes Urine RBC Urine WBC Ur Squamous Epith Cells Urine Mucus Ur Culture Indicated? TEO Screen Negative (<1:160) DS: Provider Date of admission: 05/18/17 15:30 Primary care physician: . No PCP Attending physician on admission: Vikas Awad DO Consults: 05/18/17 18:27 Consult to Physician [CONS] Routine Comment: patient of Dr Aguirre Consulting Provider: Raul Vázquez When should Consulting Provider be notified: Now 05/18/17 18:48 Consult to Occupational Therapy [CONS] Routine Reason for Occupational Therapy: Evaluate and Treat Start Therapy: Tomorrow Consult Comment: right leg weakness/numbness Consult to Physical Therapy [CONS] Routine Reason for Physical Therapy: Evaluate and Treat Start Therapy: Tomorrow Consult Comment: right leg weakness/numbness 05/18/17 20:58 Consult to Physician [CONS] Routine Comment: right leg weakness Consulting Provider: Rob Duncan Person Notified: ilir Date Notified: 05/19/17 Time Notified: 08:58 Discharging clinician: Colleen Haider MD
[2017-05-20] MEDS: ASPIRIN EC 81 MG TABLET PO SCH (15:17)
[2017-05-20] MEDS: PRASUGREL 10 MG TABLET PO SCH (15:17)
[2017-05-20] MEDS: SACUBITRIL/VALSARTAN 49-51 MG TABLET PO SCH (15:18)
[2017-05-20] MEDS: PANTOPRAZOLE 40 MG TABLET PO SCH (15:18)
[2017-05-20] MEDS: RIVAROXABAN 20 MG TABLET PO SCH (15:24)
--- NOTE | 2017-05-20 17:52 | Electroencephalogram ---
HISTORY: A 41-year-old male with a history of passing up. INTRODUCTION: A digital EEG was performed using the standard 10-20 system of electrode placement wit h one-channel of EKG monitoring. Photic stimulation is performed. DESCRIPTION OF RECORD: The background is well-organized and consists of 8.5 to 9 hertz moderate ampl itude bilateral symmetrical alpha rhythm predominant in the posterior head region that attenuates wit h eye opening. Photic stimulation elicits a driving response at all flash frequencies. Hyperventila tion produces no abnormalities. Drowsiness and sleepy was not achieved. There are no focal, sharp-w ave, spike, or wave activity seen. Heart rate 75 beats per minute. IMPRESSION: NORMAL ELECTROENCEPHALOGRAM DURING WAKEFULNESS. CLINICAL CORRELATION: No focal nor epileptiform features are seen. Normal EEG does not rule out the diagnostic possibility of epilepsy. Clinical correlation suggested.
== END 2017-05-20 16:08 | disposition home or self-care (01) | DRG 312 ==
LOC: EDUNIT# → EDBD → N.ED 12:25 → SUATTDRO 15:30 → N.EDINP 15:30 → N.2E 17:54
PROVIDERS: ADMIT Internal Medicine; ATTEND Internal Medicine